=== PATIENT | female | born 1970 | race Caucasian/White ===

== ENCOUNTER 2021-10-15 22:34 | Emergency (ER) | payer OTHER, SELFPAY ==
[2021-10-15 22:45] VITALS: PULSE 100; O2SAT 95
[2021-10-15 22:52] VITALS: BP 137/80; PULSE 106; RESP 18; TEMP 37; O2SAT 95
[2021-10-15 23:00] VITALS: PULSE 87; O2SAT 96
--- NOTE | 2021-10-15 23:05 | ED_ITS ---
HPI - General Adult General Chief complaint: Upper Respiratory Symptoms Stated complaint: Respiratory symptoms/Fevers x 4 days, -covid tests Time Seen by Provider: 10/15/21 22:56 Source: patient Mode of arrival: Ambulatory History of Present Illness HPI narrative: Patient is a 42-year-old female who is here for evaluation of fevers and upper respiratory symptoms to include cough and some wheezing which is improved with her albuterol inhaler. She does have history of asthma. She is also been having chest congestion and sinus congestion and generally not feeling very well. She has taken a COVID test every day since the onset of her symptoms and they all have been negative. She has been trying [id number] cough and cold preparations without much improvement Review of Systems Constitutional Constitutional: Reports as per HPI and Reports system reviewed and no additional complaints, except as documented Cardiovascular Cardiovascular: Reports as per HPI and Reports system reviewed and no additional complaints, except as documented Respiratory Respiratory: Reports as per HPI and Reports system reviewed and no additional complaints, except as documented Integumentary/Breasts Skin/Breast: Reports system reviewed and no additional complaints, except as documented Hematologic/Lymphatic On Anticoagulants: No Allergic/Immunologic Allergic/Immunologic: Reports system reviewed and no additional complaints, except as documented Patient History Medical History Asthma Social History Smoking Status: Never smoker Smoking Status: Never smoker Substance Use Type: does not use Exam Initial Vital Signs Initial Vital Signs: Vital Signs Pulse Rate 100 H 10/15/21 22:45 Pulse Oximetry 95 10/15/21 22:45 HENMT Head: normal to inspection and normocephalic Resp Effort & Inspection: normal respiratory effort Auscultation: clear to auscultation bilaterally Cardio Rate: regular rate Rhythm: regular rhythm Skin General: no rashes or lesions noted Neuro General: patient alert, patient awake and moves all extremities Extrem General: normal to inspection and capillary refill normal Psych Appearance: grossly normal and well kempt Course Orders Ordered: ED Orders 10/15/21 23:05 XR chest 2V Stat Vital Signs Vital signs: Vital Signs - 8 hr 10/15/21 22:52 10/15/21 22:45 10/15/21 23:00 Temperature 98.6 F Pulse Rate 106 H 100 H 87 Respiratory Rate 18 Blood Pressure 137/80 Pulse Oximetry 95 95 96 Oxygen Delivery Method Room Air 10/15/21 23:14 10/15/21 23:14 10/15/21 23:30 Temperature Pulse Rate 94 H Respiratory Rate Blood Pressure 127/66 107/63 Pulse Oximetry 95 Oxygen Delivery Method 10/15/21 23:30 10/16/21 00:00 10/16/21 00:01 Temperature Pulse Rate 82 83 79 Respiratory Rate Blood Pressure Pulse Oximetry 96 96 97 Oxygen Delivery Method 10/16/21 00:04 10/16/21 00:04 Temperature Pulse Rate 90 Respiratory Rate Blood Pressure 149/95 H Pulse Oximetry 97 Oxygen Delivery Method Medical Decision Making Imaging Data Chest x-ray: Radiologist's Impression: [address] [address] XRay Report Signed Patient: Stella Elizabeth MR#: [id number] : 1970 Acct:[id number] Age/Sex: 50 / F Date of Service: 10/15/21 Loc: ED Accession Number: [id number] ?? Procedure: XR chest 2V Ordering Provider: Josias Coronado D.O. PROCEDURE:? XR CHEST 2V ? INDICATIONS:? fever cough L side crackles ? TECHNIQUE:? 2 views of the chest were acquired.? ? COMPARISON:? None. ? FINDINGS:? ? Surgical changes and devices:? None.? ? Lungs and pleura:? Lungs are clear.? No pleural effusions or pneumothorax.? ? Mediastinum:? Mediastinal contours are normal.? Heart size is normal.? ? Bones and chest wall:? No suspicious bony abnormalities.? Soft tissues appear unremarkable.? ? IMPRESSION:? ? 1.? No acute cardiopulmonary disease. ? ? ? Dictated by: Caleb Cedeño M.D. on 10/15/2021 at 23:49 ? ? Approved by: Caleb Cedeño M.D. on 10/15/2021 at 23:50?? [facility] Narrative Medical decision making narrative: Patient has clear lung exam. Afebrile. Chest x-ray is negative. Has had multiple negative COVID test at home. She does have an influenza like illness symptoms. No indication for antibiotics. She can continue to take the albuterol for any wheezing. She can continue to take the cough and cold preparations. She was given return precautions. She expressed understanding and agreement. Discharge Plan Departure Patient Disposition: Home Clinical Impression: Influenza-like illness Instructions: DI for Viral Upper Respiratory Infection -- Adult Activity Restrictions/Additional Instructions: Continue with the Tylenol/ibuprofen for any fevers or body aches. You can try jitk-kav-ohhmitp cough and cold preparations like we discussed. Be sure to stay hydrated. Contact your primary doctor for follow-up. Return to the emergency department for any new or worsening symptoms. Visit Report Forms: Patient Portal/API
--- NOTE | 2021-10-15 23:05 | DI.RAD.S_ITS ---
PROCEDURE: XR CHEST 2V INDICATIONS: fever cough L side crackles TECHNIQUE: 2 views of the chest were acquired. COMPARISON: None. FINDINGS: Surgical changes and devices: None. Lungs and pleura: Lungs are clear. No pleural effusions or pneumothorax. Mediastinum: Mediastinal contours are normal. Heart size is normal. Bones and chest wall: No suspicious bony abnormalities. Soft tissues appear unremarkable. IMPRESSION: 1. No acute cardiopulmonary disease. Dictated by: Caleb Cedeño M.D. on 10/15/2021 at 23:49 Approved by: Caleb Cedeño M.D. on 10/15/2021 at 23:50
[2021-10-15 23:14] VITALS: BP 127/66; PULSE 94; O2SAT 95
[2021-10-15 23:30] VITALS: BP 107/63; PULSE 82; O2SAT 96
[2021-10-16] VITALS: PULSE 83; O2SAT 96
[2021-10-16 00:01] VITALS: PULSE 79; O2SAT 97
[2021-10-16 00:04] VITALS: BP 149/95; PULSE 90; O2SAT 97
== END 2021-10-16 00:33 | disposition home or self-care (01) ==
PROVIDERS: Emergency Provider Emergency Medicine
DX: R05.9 Cough, unspecified (principal); R50.9 Fever, unspecified
CPT/HCPCS: 71046; 99281; 99283

== ENCOUNTER 2022-03-21 10:32 | Emergency (ER) | payer OTHER, SELFPAY ==
[2022-03-21 10:48] VITALS: BP 125/78; PULSE 80; RESP 18; TEMP 36.8; O2SAT 99; BMI 23.1
== END 2022-03-21 12:55 | disposition left against medical advice (07) ==
PROVIDERS: Emergency Provider Emergency Medicine; PCP Naturopath
DX: M54.9 Dorsalgia, unspecified (principal); M25.551 Pain in right hip
CPT/HCPCS: 73502; 99281

== ENCOUNTER → 2022-03-21 16:25 | Outpatient (CLI) | payer OTHER, SELFPAY ==
--- NOTE | 2022-03-21 16:30 | DI.RAD.S_ITS ---
PROCEDURE: XR HIP W PEL IF DONE RT 2V INDICATIONS: Pain in right hip TECHNIQUE: AP pelvis with lateral view(s) of the right hip(s). COMPARISON: None. FINDINGS: Bones: No fractures or dislocations. Pelvic ring appears intact. No suspicious bony lesions. Hip joints are well maintained. Soft tissues: The visualized bowel gas pattern is normal. No suspicious soft tissue calcifications. IMPRESSION: No definite radiographic abnormality. If pain persists with conservative management, consider cross sectional imaging such as CT or MRI for further assessment. Dictated by: Dick Yang [facility] Interpreted: Luis E Azevedo MD on 03/21/2022 at 16:47 Transcribed by: ANIKET on 03/21/2022 at 16:48 Approved by: Luis E Azevedo M.D. on 03/21/2022 at 17:54
== END ==
PROVIDERS: PCP Naturopath; Referring Provider Naturopath; Visit Provider Naturopath
DX: M25.551 Pain in right hip (principal)
CPT/HCPCS: 73502

== ENCOUNTER → 2022-03-29 18:46 | Outpatient (CLI) | payer OTHER, SELFPAY ==
--- NOTE | 2022-03-29 18:49 | DI.MRI.S_ITS ---
PROCEDURE: MR LUMBAR SPINE WO CON INDICATIONS: LOW BACK PAIN TECHNIQUE: Noncontrast sagittal T1 spin echo and T2 fast echo, sagittal STIR, and T2 fast spin echo through the lumbar spine. In cases with scoliosis, additional coronal T2 fast spin echo may be performed. COMPARISON: None. FINDINGS: Image quality: Excellent. Alignment and Curvature: There is normal bony alignment. Bone Marrow: Marrow is of normal overall signal. No acute vertebral body compression fractures. Spinal Cord: Conus medullaris terminates at the T12 level. Visualized cord demonstrates normal signal and size. Paraspinous Soft Tissues: No paravertebral masses. T12-L1: Normal appearance. L1-L2: Normal appearance. L2-L3: Normal appearance. L3-L4: Mild disc desiccation and height loss. Broad-based disc bulge. There is a left paracentral broad-based disc bulge which narrows the left lateral recess and slightly posteriorly displaces the exiting left nerve root. There is moderate facet ligamentum flavum hypertrophy and mild canal stenosis. No neural foraminal stenosis. L4-L5: Moderate disc desiccation and height loss. Prominent posterior focal high-intensity zone. Moderate facet ligamentum flavum hypertrophy. No canal stenosis. No neural foraminal stenosis. L5-S1: Mild disc desiccation and height loss. Broad-based disc bulge. Mild facet ligamentum flavum hypertrophy. No canal stenosis. No foraminal stenosis. There is a prominent focal posterior high-intensity zone. IMPRESSION: 1. Mild to moderate disc desiccation and height loss from L3-S1. 2. 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 3. Left paracentral L3-4 broad-based disc bulge which slightly displaces the exiting left nerve root. However, the nerve root does not abut the disc bulge. 4. Mild canal stenosis at L3-4 secondary to posterior disc bulge. Dictated by: Alexandra Ramos M.D. on 03/30/2022 at 8:31 Approved by: Alexandra Ramos M.D. on 03/30/2022 at 8:50
== END ==
PROVIDERS: PCP Naturopath; Referring Provider Naturopath; Visit Provider Naturopath
DX: M51.36 Other intervertebral disc degeneration, lumbar region (principal); M51.37 Other intervertebral disc degeneration, lumbosacral region; M48.061 Spinal stenosis, lumbar region without neurogenic claudication; M54.50 Low back pain, unspecified
CPT/HCPCS: 72148

== ENCOUNTER → 2022-03-31 08:07 | Outpatient (CLI) | payer OTHER, SELFPAY ==
--- NOTE | 2022-03-31 | DI.MRI.S_ITS ---
PROCEDURE: MR HIP RT W CON INDICATIONS: HIP PAIN TECHNIQUE: After the administration of 10 mL of dilute intra-articular Gadolinium contrast, coronal STIR of the bony pelvis; coronal and oblique axial T1 spin echo with fat saturation, axial T2 fast spin echo with fat saturation, sagittal T1 spin echo with and without fat saturation of the involved hip. COMPARISON: [facility], [place], [place] HIP INJECTION MR/CT RT, 03/31/2022, 8:32. [facility], [place], XR HIP W PEL IF DONE RT 2V, 03/21/2022, 16:31. FINDINGS: Image quality: Excellent. Bones and joints: There is no marrow edema. No fracture or dislocation. No avascular necrosis of the femoral head. The visualized lower lumbar spine appears normally aligned. Mild prominence of superior anterior right femoral head neck junction is seen which can be seen associated with CAM type femoral acetabular impingement. The ligamental, neck, and labral plicae appear normal where visualized. Tendons and ligaments: The gluteus medius and minimus tendinosis at their insertion on greater trochanter is seen, without associated muscle atrophy. The nearby proximal iliotibial band also appears intact. The iliopsoas tendon appears intact, without adjacent bursal fluid collections or evidence for impingement syndrome. The origin of the hamstring tendon is intact at the ischial tuberosity, as well as the associated sacrotuberous ligament. The straight and reflected heads of the rectus femoris muscle origin appear intact, as well as the conjoint tendon. The ligamentum teres appears intact where visualized. Labrum and cartilage: The acetabular labrum appears intact throughout. Cartilage surface of the femoral head appears of normal thickness. No paralabral cysts. The alpha angle of the femur is within normal limits at less than 55 degrees. Soft tissues: Visualized muscles demonstrate normal bulk and internal signal. Quadratus femoris muscle demonstrates no internal edema to suggest ischiofemoral impingement. The proximal sciatic neurovascular bundle appears normal adjacent to the hamstring tendons. No free pelvic fluid. Bladder wall thickness is normal. Genitourinary structures and bowel loops appear normal where visualized. IMPRESSION: 1. No marrow edema. No fracture or dislocation. No evidence of avascular necrosis of femoral head. Mild prominence of superior anterior right femoral head neck junction which can be seen associated with CAM type femoral acetabular impingement. 2. Distal right gluteus medius and minimus tendinosis at their insertion on greater trochanter. No other muscle or tendon signal abnormality is seen. 3. No evidence of focal labral tear. Dictated by: Ike Gomez M.D. on 03/31/2022 at 13:21 Approved by: Ike Gomez M.D. on 03/31/2022 at 13:25
--- NOTE | 2022-03-31 | DI.RAD.S_ITS ---
PROCEDURE: [place] HIP INJECTION MR/CT RT INDICATIONS: HIP PAIN TECHNIQUE: The indications, alternatives, benefits, risks, and complications of the procedure were explained to the patient. Written informed consent was obtained and placed in the chart. The hip was examined fluoroscopically with the legs fixed in slight internal rotation, and a site for needle placement chosen for entry into the hip joint from an anterior approach. Care was taken to locate the common femoral artery and vein beforehand. The skin was prepped and draped in a sterile fashion, and 1% Lidocaine infiltrated from skin down to joint capsule. A spinal needle was inserted into the joint, and a small amount of iodinated contrast media injected to confirm intra-articular placement of the needle tip. This was followed by approximately 10 mL dilute solution of a gadolinium containing MR contrast agent. The needle was removed and a dressing was applied. The patient was given postprocedural instructions and sent to the MR suite for imaging. COMPARISON: None. FINDINGS: A single fluoroscopic spot image demonstrates intra-articular location of injected iodinated contrast. IMPRESSION: Successful fluoroscopically guided administration of dilute Gadolinium solution into the hip joint for MR arthrogram. Dictated by: Margarito Zapata M.D. on 03/31/2022 at 9:33 Approved by: Margarito Zapata M.D. on 03/31/2022 at 9:35
== END ==
PROVIDERS: PCP Naturopath; Referring Provider Naturopath; Visit Provider Naturopath
DX: M25.551 Pain in right hip (principal)
CPT/HCPCS: 27093; 73722; 77002

== ENCOUNTER 2022-05-16 09:55 | Emergency (ER) | payer OTHER, SELFPAY ==
--- NOTE | 2022-05-16 10:03 | ED.BACK ---
HPI - Back Pain/Injury General Chief Complaint: Back Pain/Injury Stated Complaint: bulging disc, pain management Time Seen by Provider: 05/16/22 10:01 History of Present Illness HPI Narrative: 51-year-old female never smoker with known lumbar disc problem presents with her in the chief complaint of significantly worsening symptoms over the past few days. She is had no traumatic injury but likely exacerbated it when sitting in the bleachers recently. She has severe midline back pain with radiation into her right hip and leg. The pain is sharp and stabbing and significantly worse with motion, it does improve with rest. She denies any fever or chills. She does not take any blood thinners. She is had no loss of control of bowel or bladder. She does have some tingling along the lateral edge of her leg extending down to her knee. She denies any footdrop. She denies any obvious leg weakness. She does have an evaluation with Dr. Duke on . She has been taking regular anti-inflammatories, the occasional cyclobenzaprine and took a half of Vicodin at 1 point. In the past she had taken steroids and gabapentin but states they did not work so she is no longer taking them. She denies runny nose, sore throat or cough. She is had no chest pain or shortness of breath. She denies nausea, vomiting or diarrhea. She is had no vaginal bleeding or discharge and denies dysuria, frequency or urgency Related Data Home Medications Medication Instructions Recorded Confirmed cyclobenzaprine 10 mg tablet 10 mg PO TID PRN Muscle Spasm 05/16/22 05/16/22 fluticasone 500 mcg-salmeterol 50 1 ea inhalation BID 05/16/22 05/16/22 mcg/dose blistr powdr for inhalation (Advair Diskus) gabapentin 300 mg tablet 300 mg PO DAILY 05/16/22 05/16/22 ibuprofen 600 mg tablet 600 mg PO Q6H PRN Pain (Scale 05/16/22 05/16/22 Score 7-10) thyroid (pork) 120 mg tablet (BARBERING INSTRUCTOR 120 mg PO DAILY 05/16/22 05/16/22 Thyroid) Previous Rx's Medication Instructions Recorded cyclobenzaprine 10 mg tablet 10 mg PO TID PRN muscle spasm #20 05/16/22 tabs hydrocodone 5 mg-acetaminophen 325 1 tab PO Q4-6H PRN pain #20 tabs 05/16/22 mg tablet ketorolac 10 mg tablet 10 mg PO Q6H PRN pain #20 tabs 05/16/22 methylprednisolone 4 mg tablets in See Rx Instructions PO .COMPLEX 05/16/22 a dose pack (Medrol (Otto)) #21 ea ondansetron 4 mg disintegrating 4 mg PO TID-QID PRN nausea and 05/16/22 tablet vomiting #10 tabs Allergies Allergy/AdvReac Type Severity Reaction Status Date / Time No Known Drug Allergies Allergy Verified 05/16/22 10:15 Review of Systems Review of Systems Narrative: GENERAL: See HPI HEENT: Denies sinus pain, ear pain, sore throat, difficulty swallowing, dizziness. RESPIRATORY: Denies dyspnea, cough, wheezing, hemoptysis, sputum. CARDIOVASCULAR: Denies chest pain, palpitations, orthopnea, edema, GASTROINTESTINAL: Denies nausea, vomiting, abdominal pain, diarrhea, constipation, melena. : Denies dysuria, frequency, incontinence, hematuria, urinary retention. MUSCULOSKELETAL: See HPI SKIN: Denies rash, skin lesions, or other NEUROLOGIC: See HPI PSYCHIATRIC: No concerning psychosocial issues. 12 point review of systems is negative except for those stated above Patient History Medical History Asthma Social History Smoking Status: Never smoker Smoking Status: Never smoker Substance Use Type: does not use Exam Narrative Exam Narrative: GENERAL: [51] year old patient appears stated age. Well-developed patient, in mild distress. Tearful, clearly in pain, walks in under her own power, able to stand HEAD: Atraumatic. Normocephalic. EYES: Pupils equal round and reactive. Extraocular motions intact. No scleral icterus. No injection or drainage. ENT: Nose without bleeding, purulent drainage. Throat without erythema, tonsillar hypertrophy or exudate. Airway patent. NECK: Trachea midline. Non tender CARDIOVASCULAR: Regular rate and rhythm without murmurs, gallops, or rubs. RESPIRATORY: Clear to auscultation. Breath sounds equal bilaterally. No wheezes, rales, or rhonchi. GASTROINTESTINAL: Abdomen soft, non-tender, nondistended. EXTREMITIES: No edema or joint tenderness. BACK: steak tenderizer machine but free of any obvious external abnormalities. Patient exam notes decreased range of motion and muscle spasm, but no CVA tenderness, or vertebral point tenderness. There are no symptoms of cauda equina such as saddle anesthesia, and decreased reflexes, she does have some decreased sensation laterally. There is no measurable lower extremity weakness NEURO: AOx3. SKIN: No rash or erythema of visible areas Initial Vital Signs Initial Vital Signs: Vital Signs Temperature 98.1 F 05/16/22 10:05 Pulse Rate 78 05/16/22 10:05 Respiratory Rate 20 05/16/22 10:05 Blood Pressure 143/74 H 05/16/22 10:05 Pulse Oximetry 100 05/16/22 10:05 Oxygen Delivery Method 05/16/22 10:05 Course Orders Ordered: Discontinued Medications Hydromorphone HCl (Hydromorphone 0.5 Mg Inj) 0.5 mg IV NOW ONE Stop: 05/16/22 10:18 Last Admin: 05/16/22 10:35 Dose: 0.5 mg Documented By: GROVER Ketorolac Tromethamine (Ketorolac 30 Mg/Ml Vial) 15 mg IV NOW ONE Stop: 05/16/22 10:18 Last Admin: 05/16/22 10:35 Dose: 15 mg Documented By: CTS Reevaluation(s) Reevaluation #1: Significant improvement after above-stated therapies Consultations Consultation #1: Discussed with Dr. Duke, will see her on in office, evaluate response to therapies Vital Signs Vital signs: Vital Signs - 8 hr 05/16/22 10:05 05/16/22 11:25 05/16/22 15:13 Temperature 98.1 F Pulse Rate 78 68 62 Respiratory Rate 20 18 18 Blood Pressure 143/74 H 112/58 L 119/62 Pulse Oximetry 100 99 99 Oxygen Delivery Method Room Air Room Air Room Air MDM - Back Pain/Injury Lab Data 05/16/22 10:32 05/16/22 10:32 Labs: Lab Results 05/16/22 05/16/22 Range/Units 10:32 10:32 WBC 5.4 (4.5-11.0) X10^3/uL RBC 4.72 (4.0-5.2) X10^6/uL Hgb 14.4 (12.0-16.0) g/dL Hct 41.0 (36-46) % MCV 86.8 (80-100) fL MCH 30.6 (26-34) PG MCHC 35.2 (30-36) % RDW 13.1 (11.6-14.8) % Plt Count 254 (150-400) X10^3/uL Neut % (Auto) 54.0 (50-75) % Lymph % (Auto) 33.3 (25-40) % [place] % (Auto) 6.1 (3-14) % Eos % (Auto) 5.2 H (2-4) % Baso % (Auto) 1.4 (0-2) % Neut # (Auto) 2900 (1033-6068) /uL Lymph # (Auto) 1800 (1780-6839) /uL [place] # (Auto) 300 (0-900) /uL Eos # (Auto) 300 (0-450) /uL Baso # (Auto) 100 (0-100) /uL ESR 5 (0-20) MM/HR Sodium 132 L (137-145) mmol/L Potassium 3.6 (3.4-5.1) mmol/L Chloride 97 L (98-107) mmol/L Carbon Dioxide 27 (22-32) mmol/L BUN 14 (7-17) mg/dL Creatinine 0.54 (0.52-1.04) mg/dL Estimated GFR > 60 (>60) mL/min BUN/Creatinine Ratio 25.9 H (6-22) Glucose 91 (70-100) mg/dL Calcium 9.4 (8.4-10.2) mg/dL C-Reactive Protein < 0.5 (<1.0) mg/dL [facility] Narrative Medical decision making narrative: CC: 51-year-old female with severe low back pain and radiation to her leg with numbness and tingling, in the absence of trauma, fever or classic signs of cauda equina Complicating co-morbidities: None obvious Data collected from: Patient and Medical records reviewed: Including prior MRI and arthrogram Differential considered, but not limited to: Lumbar radiculopathy, epidural abscess, cauda equina, epidural hematoma versus other Exam documented above, pertinent findings include: Obviously in significant pain but no evidence of cauda equina such as depressed reflexes, weakness or saddle anesthesia Lab Test results independently reviewed as above. Pertinent findings: No significant findings which would require a specific or immediate intervention Imaging studies independently reviewed: Disc desiccation and height loss with annular fissures, L3-L4 disc protrusion, disc bulge at L4-L5 with broad-based posterior protrusion with bilaterally descending L5 nerve roots. No mass effect. Mild neural foraminal narrowing at L3-L4 and L4-L5. No marrow signal abnormality. No evidence of abscess or hematoma Consultations: Dr. Duke (See above) Treatments: Dilaudid, Ketorolac, patient's own gabapentin Re-evaluations: Significant improvement, some pain still present but notably improved Discussion: Patient with worsening low back pain with radicular symptoms in the absence of fever, trauma or blood thinner use. There is no evidence of spinal cord compression or cauda equina. Patient had improvement with above-stated therapies. Extensive discussion with patient and about the importance of adherence to medications at least until follow-up with ortho on . Return precautions discussed Disposition: see below, along with detailed discharge instructions that have been reviewed with patient as well as indications for ED re-evaluation and additional outpatient follow up Discharge Plan Departure Patient Disposition: Home Clinical Impression: Acute back pain with radiculopathy Instructions: DI for Lumbar Radiculopathy Activity Restrictions/Additional Instructions: *You have been diagnosed with [acute lumbar radiculopathy] *What to do: *Please continue to take your regular medications as directed. [x ] New medication prescriptions sent to your pharmacy: [[facility] ] [ ] New medication written as a paper prescription [ ] No new medications given *Please follow up with Dr. Duke on as planned. I will electronically transmitted a copy of today's note, however it may be schmidt to call the office ahead of time and let them know that you were seen in the emergency department so he may review the records including MRI ahead of time *Return to Emergency Department if you should have any new, worsening or concerning symptoms, such as [fever greater than 101 F, shaking chills, worsening pain, persistent vomiting or other bothersome symptoms] You have been prescribed a short course of narcotic medications. These are potentially dangerous and addictive medications that should be used carefully. While on these medications you cannot drive or operate heavy machinery. Additionally, you cannot sign legal documents or perform any duties such as this. Many people get constipated on narcotic medications so it would be advisable to discuss stool softeners with the pharmacist when you hop picker your prescription. Please understand that we cannot provide further refills of narcotics or controlled substances through the ED and your pain management will need to be through your Primary Care Provider Prescriptions: New cyclobenzaprine 10 mg tablet 10 mg PO TID PRN (Reason: muscle spasm) Qty: 20 0RF hydrocodone-acetaminophen 5-325 mg tablet 1 tab PO Q4-6H PRN (Reason: pain) Qty: 20 0RF ketorolac 10 mg tablet 10 mg PO Q6H PRN (Reason: pain) Qty: 20 0RF methylprednisolone [Medrol (Otto)] 4 mg tablets,dose pack See Rx Instructions .ROUTE .COMPLEX Qty: 21 0RF Rx Instructions: orally per package directions ondansetron 4 mg tablet,disintegrating 4 mg PO TID-QID PRN (Reason: nausea and vomiting) Qty: 10 0RF No Action cyclobenzaprine 10 mg tablet 10 mg PO TID PRN (Reason: Muscle Spasm) Label Comments: TAKE ONE TABLET BY MOUTH THREE TIMES DAILY NEEDED fluticasone propion-salmeterol [Advair Diskus] 500-50 mcg/dose blister with device 1 ea INHALATION BID Label Comments: INHALE ONE PUFF INTO THE LUNGS TWO TIMES DAILY. thyroid (pork) [BARBERING INSTRUCTOR Thyroid] 120 mg tablet 120 mg PO DAILY ibuprofen 600 mg Tablet 600 mg PO Q6H PRN (Reason: Pain (Scale Score 7-10)) Label Comments: pt taking q 5 hours, instructed that was over reccomended dose. gabapentin 300 mg Tablet 300 mg PO DAILY Referrals: Beena Yusuf ND [Primary Care Provider] - Iván Duke MD [Physician] - Stand Alone Forms: Patient Portal/API
[2022-05-16 10:05] VITALS: BP 143/74; PULSE 78; RESP 20; TEMP 36.7; O2SAT 100; BMI 24.7
[2022-05-16] MEDS: KETOROLAC 30 MG/ML VIAL 15 MG IV (10:35)
[2022-05-16] MEDS: HYDROMORPHONE 0.5 MG INJ IV (10:35)
[2022-05-16 10:43] LABS: Add Manual Diff / Slide Review NO; Basophils Absolute Auto 100 /uL (0-100); Basophils Percent Auto 1.4 % (0-2); Eosinophils Absolute Auto 300 /uL (0-450); Eosinophils Percent Auto 5.2 % (2-4); Hemoglobin 14.4 g/dL (12.0-16.0); Lymphocytes Absolute Auto 1800 /uL (1100-4500); Lymphocytes Percent Auto 33.3 % (25-40); Mean Corpuscular HGB Conc 35.2 % (30-36); Mean Corpuscular Hemoglobin 30.6 PG (26-34); Mean Corpuscular Volume 86.8 fL (80-100); Monocytes Absolute Auto 300 /uL (0-900); Monocytes Percent Auto 6.1 % (3-14); Neutrophils Absolute Auto 2900 /uL (1500-7000); Platelet Count 254 X10^3/uL (150-400); Red Blood Cell Count 4.72 X10^6/uL (4.0-5.2); Red Cell Distribution Width 13.1 % (11.6-14.8); White Blood Cell Count 5.4 X10^3/uL (4.5-11.0)
[2022-05-16 10:56] LABS: BUN Creatinine Ratio 25.9 (6-22); Blood Urea Nitrogen 14 mg/dL (7-17); C-Reactive Protein Quant < 0.5 mg/dL (<1.0); Calcium 9.4 mg/dL (8.4-10.2); Carbon Dioxide 27 mmol/L (22-32); Chloride 97 mmol/L (98-107); Estimated Glomerular Filt Rate > 60 mL/min (>60); Glucose 91 mg/dL (70-100); HEMOLYSIS < 15 (0-50); Potassium 3.6 mmol/L (3.4-5.1); Sodium 132 mmol/L (137-145)
[2022-05-16 11:10] LABS: Erythrocyte Sedimentation Rate 5 MM/HR (0-20)
[2022-05-16 11:25] VITALS: BP 112/58; PULSE 68; RESP 18; O2SAT 99
--- NOTE | 2022-05-16 12:36 | DI.MRI.S_ITS ---
PROCEDURE: MR LUMBAR SPINE WO CON INDICATIONS: severe Right sided radicular pain, weakness TECHNIQUE: Noncontrast sagittal T1 spin echo and T2 fast echo, sagittal STIR, and T2 fast spin echo through the lumbar spine. In cases with scoliosis, additional coronal T2 fast spin echo may be performed. COMPARISON: None. FINDINGS: From L3-L4 through L5-S1 there is disc desiccation and disc height loss with annular fissures at each level. At L3-L4 there is a disc protrusion in the left subarticular zone which mildly displaces the descending left L4 nerve roots. Shallow disc bulge at L4-L5 with broad-based posterior disc protrusion mildly displaces the bilateral descending L5 nerve roots. No mass effect on the traversing nerve roots at the L5-S1 level. Foraminal components of the disc bulge is and facet hypertrophy combine to produce mild neural foraminal narrowing at L3-L4 and L4-L5. Normal lumbar vertebral body height and alignment. No suspicious focal marrow signal abnormality or bone marrow edema. Normal position and appearance of the conus. Regional soft tissues normal. IMPRESSION: Moderate left subarticular zone narrowing at L3-L4. Correlate for any corresponding left L4 radicular symptoms. Moderate subarticular zone narrowing at L4-L5 bilaterally. Correlate for any corresponding L5 radicular symptoms. Dictated by: Brendon Christine M.D. on 05/16/2022 at 13:18 Approved by: Brendon Christine M.D. on 05/16/2022 at 13:19
[2022-05-16 15:13] VITALS: BP 119/62; PULSE 62; RESP 18; O2SAT 99
== END 2022-05-16 15:15 | disposition home or self-care (01) ==
PROVIDERS: Emergency Provider Emergency Medicine; PCP Naturopath
DX: M54.16 Radiculopathy, lumbar region (principal)
CPT/HCPCS: 36415; 72148; 80048; 85025; 85651; 86140; 96374; 96375; 99284; J1170; J1885

== ENCOUNTER → 2022-05-28 10:10 | Outpatient (CLI) | payer OTHER, SELFPAY ==
[2022-05-28 11:08] LABS: Add Manual Diff / Slide Review NO; Basophils Absolute Auto 100 /uL (0-100); Blood Urea Nitrogen 14 mg/dL (7-17); Calcium 9.3 mg/dL (8.4-10.2); Carbon Dioxide 24 mmol/L (22-32); Chloride 97 mmol/L (98-107); Eosinophils Absolute Auto 300 /uL (0-450); Eosinophils Percent Auto 3.7 % (2-4); Estimated Glomerular Filt Rate > 60 mL/min (>60); Glucose 90 mg/dL (70-100); HEMOLYSIS < 15 (0-50); Hematocrit 40.7 % (36-46); Hemoglobin 14.2 g/dL (12.0-16.0); Lymphocytes Absolute Auto 2500 /uL (1100-4500); Lymphocytes Percent Auto 31.9 % (25-40); Mean Corpuscular Hemoglobin 30.4 PG (26-34); Mean Corpuscular Volume 87.1 fL (80-100); Monocytes Absolute Auto 600 /uL (0-900); Monocytes Percent Auto 7.4 % (3-14); Neutrophils Absolute Auto 4400 /uL (1500-7000); Platelet Count 276 X10^3/uL (150-400); Potassium 3.5 mmol/L (3.4-5.1); Red Blood Cell Count 4.67 X10^6/uL (4.0-5.2); Red Cell Distribution Width 12.9 % (11.6-14.8); Sodium 133 mmol/L (137-145); White Blood Cell Count 7.9 X10^3/uL (4.5-11.0)
== END ==
PROVIDERS: PCP Naturopath; Referring Provider Orthopaedic Surgery Orthopaedic Surgery of the Spine; Visit Provider Orthopaedic Surgery Orthopaedic Surgery of the Spine
DX: Z01.818 Encounter for other preprocedural examination (principal); Z01.812 Encounter for preprocedural laboratory examination
CPT/HCPCS: 36415; 80048; 85025; 93005

== ENCOUNTER 2022-06-06 08:00 | Inpatient (IN) | payer OTHER, SELFPAY ==
[2022-06-01 10:42] VITALS: BMI 23.1
[2022-06-06] VITALS (23 sets, daily range): BP systolic 108–135; BP diastolic 60–93; PULSE 68–98; RESP 10–28; TEMP 36.6–37.1; O2SAT 93–99; BMI 23.1
[2022-06-06] MEDS: LACTATED RINGERS 1,000 ML 42 ML IV ×3 (08:35→11:31)
--- NOTE | 2022-06-06 08:50 | PM.PREOP ---
Pre-operative Note COVID-19 COVID-19 status: Negative Result date/Date tested (Pos, Neg/Pending): 06/05/22 Criteria for continued procedure: Expected advancement of disease process, Possibility delay results in more complex future surgery or treatment, Increased loss of function, Continuing or worsening of significant or severe pain, Deterioration of the patient's condition or overall health and Delay expected to result in less-positive ultimate med/surg outcome Interval Note History & Physical reviewed/Exam performed by Physician: Yes Changes to H&P: No
[2022-06-06] MEDS: CEFAZOLIN 2 GM/100 ML PREMIX 100 ML IV ×2 (09:10→17:08)
--- NOTE | 2022-06-06 09:39 | SUR.OPER ---
Prone on spine table, head in foam head support, padded chest and pelvic supports, gel pad at knees, lower legs supported by pillows; nipples, genitalia and toes free of pressure, arms secured on foam padded arm boards at <90 degrees abduction. Tape over blanket at thigh secured to table.
[2022-06-06] MEDS: BUPIVACAINE 0.5% W/ EPI (PF) 30 ML VIAL INJ (10:14)
[2022-06-06] MEDS: BUPIVACAINE LIPOSOME 266 MG/20 ML VIAL INJ (10:14)
--- NOTE | 2022-06-06 11:31 | PM.OP.1 ---
Operative Date/Time/Diagnoses Date of procedure: 06/06/22 Time of procedure: 10:00 Pre-op diagnosis: 1. 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 L3-4 radiculopathy 3. L3-4 spinal stenosis Post-op diagnosis: same Procedure & Clinicians Procedure: 1. L3-4 Postero-lateral and posterior interbody fusion 2. L3-4 interbody cage placement. 3. L3-4 decompressive laminectomy with bilateral facetecomies 4. L3-4 Posterior non-segmental instrumentation 5. Pollock of bone marrow from iliac crest 6. Utilization of microsurgical technique and operating microscope Same procedure as scheduled: Yes Indications: Patient has been having chronic back pain and constant lumbar radiculopathy to her right leg for 3 month. Patient failed multiple conservative management with worsening pain weakness and numbness in her lower extremity. Patient has been having difficulty performing activity of daily living. After discussing risks benefits of treatment options, patient elected proceed with surgery. Surgeon: Iván Duke Surveillance Dual Rate Officer: Josy Quispe Click Yes if Unassisted: No Anesthesia Type: General Operative Notes Closure Type: primary Specimen(s): none sent Prosthetic devices, grafts, tissues, transplants, or devices: Globus revolve screws, Rise cage Estimated Blood Loss (mL): 50 Blood products transfused: none Procedure in detail: Patient was seen in the preoperative area. Risks and benefits of the surgery was discussed with the patient. Informed consent was obtained from the patient and placed in the chart. Surgical site was marked. Patient was taken to the operative room. General anesthesia was administered. Prophylactic antibiotic was given to the patient less than 30 min before the incision was made. Patient was placed into a prone position on the Jcarlos table. Patient's back was then prepped and draped in the sterile fashion. Time-out was performed at this time. Using AP and lateral C-arm imaging the interval between L3-4 was identified and marked on patient's back. A 2 inch incision 2 in from midline was made on the right side first. The fascia was incised in line with skin incision. Globus MARS retractors was placed inside the incision and docked onto the L3 lamina. Using microsurgical technique and operating microscope, a L3 laminectomy and L3-4 facetectomy was performed using a Kerrison rongeur. Patient was found to have a large synovial cyst in the epidural space at L3-4 level. The cyst measures roughly 1 cm in diameter. Micro curette and Kerrison rongeur was carefully used to dissect the cyst off of the epidural space and a nerve root. The cyst was causing significant impingement on the thecal sac as well as the L4 nerve root. The cyst was removed in its entirety with a pituitary. The cyst was found to be filled with viscous thick fluid with a thin membrane. After the cyst was removed, the area mediolateral superior inferior to the area of the cyst was explored. No other impinging structure was identified. The laminectomy and facetectomy rendered the L3-4 level grossly unstable and requires a fusion procedure at the same time. The disc space at L3-4 was identified. And a total diskectomy was performed at L3-4 level. The endplates were decorticated using a rasp and shaver. The total diskectomy and decortication was performed at L3-4 level in order to to accomplish a L3-4 fusion. The local bone from the laminectomy and facetectomy was saved for local bone grafting. After the total diskectomy and decortication was completed, Globus Trifecta bone graft material was combined with local bone that was harvested earlier. At this time, a separate skin is incision was made over the iliac crest. A Jamshidi needle was inserted into the iliac crest through a separate skin incision. 5 cc of bone marrow aspiration was obtained through the separate skin incision using a Jamshidi needle from the iliac crest. The bone marrow aspiration was combined with local bone and theTrifecta bone grafting material. The bone grafting material was placed into the L3-4 interbody space along with a expandable cage. The cage was expanded to its maximum height using the torque limiting screwdriver. At this time a mirror image incision was made on the left side. The fascia was incised in line with the skin incision. Globus MARS retractor was inserted and docked onto the L3-4 posterolateral gutter. Using the power drill, posterior-lateral decortication was performed at L3-4 level until bleeding cortical bone was identified. The remaining bone grafting material was placed into the L3-4 posterior lateral gutter he order to accomplish posterolateral fusion at the L3-4 level. Using the double C-arm technique, pedicle screws were placed into the L3-4 pedicles bilaterally. This was done by placing the Jamshidi needle into the pedicles, then placing the guidewires over the Jamshidi needle, and finally placing the cannulated screws over the guidewires bilaterally. After the pedicle screws were placed, 2 titanium rods was locked into the heads of the pedicle screws using locking caps and torque limiting screwdriver. After all the hardware was placed, and confirmed with AP and lateral C-arm imaging, the wound was then irrigated with sterile normal saline and packed with Ray-Dora gauze for 3 min to accomplish hemostasis. After the gauze was removed the deep fascia was closed with #1 Vicryl suture. The subcutaneous layer was closed with 2-0 Vicryl. The skin was closed with skin drew. Patient tolerated the procedure well. There were no complications. Complications: none Post-operative Condition: stable Disposition: PACU Plan for aftercare: Admit to inpatient hospital
[2022-06-06] MEDS: fentaNYL 100 MCG/2 ML INJ IV ×3 (11:56→12:05)
[2022-06-06] MEDS: hydrOXYzine 50 MG/ML INJ 25 MG IM (11:56)
--- NOTE | 2022-06-06 11:57 | DI.RAD.S_ITS ---
PROCEDURE: XR LUMBAR SPINE 2-3V INDICATIONS: L3-4 TLIF TECHNIQUE: 2 operative views of the lumbar spine were acquired. COMPARISON: None. FINDINGS: Operative imaging demonstrates posterior lateral fam and pedicle screw fixation and interbody spacer placement at L3-L4. IMPRESSION: Operative imaging utilized for lumbar fusion surgery at L3-L4 with no radiographic evidence of complications. Dictated by: Stanley Moncada M.D. on 06/06/2022 at 13:30 Approved by: Stanley Moncada M.D. on 06/06/2022 at 13:31
[2022-06-06] MEDS: HYDROMORPHONE 0.5 MG INJ IV ×3 (12:30→22:33)
[2022-06-06] MEDS: OXYCODONE/ACETAMINOPHEN 5/325 TABLET 1 TAB PO ×2 (13:05→15:00)
[2022-06-06] MEDS: HYDROMORPHONE 2 MG INJ (14:40)
--- NOTE | 2022-06-06 15:05 | SUR.PHASEI ---
Log rolled to use BSC, tolerated, assist x 2. voided large amount, log roll back to bed, tolerated well.
--- NOTE | 2022-06-06 15:16 | SUR.PHASEI ---
Transferred to 219 with all belongings. Report called.
[2022-06-06] MEDS: IBUPROFEN 600 MG TABLET PO ×2 (17:05→22:34)
[2022-06-06] MEDS: hydrOXYzine pamoate 25 MG CAPSULE PO (17:05)
[2022-06-06] MEDS: SODIUM CHLORIDE 0.9% 1,000 ML 100 ML IV (17:21)
[2022-06-06] MEDS: OXYCODONE IR 5 MG TABLET PO ×2 (18:32→23:21)
[2022-06-06] MEDS: ACETAMINOPHEN 325 MG TABLET 650 MG PO (18:56)
--- NOTE | 2022-06-06 20:07 | PC.NURSE ---
Addendum entered by Alena Leonardo R.N. 06/06/22 20:09: dressing c/d/i Original Note: Pt arrived from PACU at 1500 this afternoon. A&OX3, VSS, on RA. She is able to turn in bed, tolerating po intake, denies n/v. Reports pain tolerable with PRN and scheduled pain medications this evening. Per Post OP RN patient had gotten up to void 3 L in PACU. Continuous monitoring. NS @100ml/hr.
[2022-06-06] MEDS: SENNOSIDES 8.6 MG TABLET 17.2 MG PO (22:22)
[2022-06-06] MEDS: THYROID, PORK 30 MG TABLET 120 MG PO (22:22)
[2022-06-06] MEDS: DOCUSATE 100 MG CAPSULE PO (22:22)
[2022-06-06] MEDS: CYCLOBENZAPRINE 10 MG TABLET PO (22:35)
[2022-06-07] MEDS: CEFAZOLIN 2 GM/100 ML PREMIX 100 ML IV (00:26)
[2022-06-07] MEDS: IBUPROFEN 600 MG TABLET PO ×2 (04:05→12:55)
[2022-06-07] MEDS: hydrOXYzine pamoate 25 MG CAPSULE PO ×2 (04:06→12:55)
[2022-06-07] MEDS: OXYCODONE IR 5 MG TABLET PO ×2 (04:06→08:51)
[2022-06-07 06:50] VITALS: BP 115/62; PULSE 64; RESP 18; TEMP 37.2; O2SAT 97
--- NOTE | 2022-06-07 07:35 | PM.PNPO.1 ---
Subjective Subjective Date Patient Seen: 06/07/22 Time Patient Seen: 07:35 Interval history: Pain has been moderate. Denies fever chills. No nausea vomiting. Patient has her home to assist her. Exam Vital Signs (past 8 hours): - 06/07/22 06:50 Temperature 98.9 F Pulse Rate 64 Respiratory Rate 18 Blood Pressure 115/62 Pulse Oximetry 97 Oxygen Flow Rate 0 Oxygen Delivery Method Room Air Oxygen Flow Rate 0 Narrative Exam Narrative: 51-year-old female resting comfortably in bed in no apparent distress. Motor functions intact bilateral lower extremities. Sensation grossly intact to light touch bilateral lower extremities. Dressing is clean, dry and intact. Const General: cooperative and comfortable Nutritional Appearance: average body habitus Orientation: alert Resp Effort & Inspection: normal respiratory effort and able to speak in complete sentences [facility] Medical History Asthma COVID-19 virus infection (11/2020) Hypothyroidism Sciatica Spinal stenosis Synovial cyst of lumbar spine Uterine cancer (07/2016) Surgical History History of partial hysterectomy (07/2016) Hx of abdominal surgery (09/2017) Hx of appendectomy (09/2017) Hx of dilation and curettage (05/2016) Hx of umbilical hernia repair Social History household members: spouse Smoking Status: Never smoker alcohol intake: current Assessment & Plan Post-op Postoperative Procedures: Procedures Operation Date: 06/06/22 09:15 Actual Procedure Side Surgeon p L3-4 TLIF Iván Duke MD Postoperative day: 1 Postoperative status: doing well Postoperative plan: routine post-op care Postoperative plan narrative: Multimodal pain management Mobilize with physical therapy, limit bending, lifting, twisting Disposition likely home today or tomorrow Quality VTE Deep Vein Thrombosis/Pulmonary Embolism Present on Admission: No
--- NOTE | 2022-06-07 08:40 | CM.DANOTE ---
Initial DCP Assessment Note Pt is a 51 yo female, resident of [place], now POD#[address] Duke PCP: Beena Yusuf Payer: Juju GONZALEZ Reviewed chart, initial assessment completed with the information available Patient awaiting therapy eval this morning, plans to return home w/spouse to assist and close outpatient follow up per Ortho recommendation and orders Patient likely to be dicharged today or tomorrow pending progress w/therapy team and pain management post operatively. No barriers identified at this time to patient's safe discharge home w/family to assist; close outpatient f/u recommended. Following closely for any DC concerns or needs that may arise- therapies evaluating today KATRIN Masterson Discharge Planning/Care Management CM Discharge Assessment Start: 06/07/22 08:38 Freq: Status: Active Protocol: Document 06/07/22 08:38 JOSE (Rec: 06/07/22 08:39 JOSE [id number]) Discharge Planning Assessment Assigned Stogie Packer KATRIN Trejo DPOA/Assigned Designee Name Vahe () Contact Information [phone] Advance Directives? Yes Advance Directives on File No History Provided By Patient,Medical Record Prior Living Arrangements House Household Members spouse Type of transporation used prior to Drives own vehicle admit Comment Self Employed per chart review Independent with ADL's Yes Is patient alert and oriented? Yes Patient/Family Preference OP PT Therapy Barriers to Discharge No
[2022-06-07] MEDS: THYROID, PORK 30 MG TABLET 120 MG PO (08:50)
[2022-06-07] MEDS: DOCUSATE 100 MG CAPSULE PO (08:50)
[2022-06-07] MEDS: CYCLOBENZAPRINE 10 MG TABLET PO (08:51)
[2022-06-07] MEDS: ACETAMINOPHEN 325 MG TABLET 650 MG PO (08:51)
[2022-06-07 09:19] VITALS: BP 122/71; PULSE 78; RESP 16; TEMP 36.6; O2SAT 97
[2022-06-07 10:13] VITALS: PULSE 79; RESP 16; O2SAT 98
[2022-06-07] MEDS: ALBUTEROL 2.5 MG/3 ML NEB (ADULT) INH (10:18)
[2022-06-07] MEDS: BUDESONIDE 0.5 MG/2 ML NEB INH (10:18)
--- NOTE | 2022-06-07 10:19 | PT.IIE ---
Current Diagnoses Spinal stenosis, lumbar region without neurogenic claudication (06/06/22) Other bursal cyst, other site (06/06/22) Surgery Performed Operation Date: 06/06/22 09:15 Actual Procedures p L3-4 TLIF - Iván Duke MD Surgical History (Last Reviewed 06/07/22 @ 07:36 by Zack Hernandez PA-C) History of partial hysterectomy (07/2016) Hx of abdominal surgery (09/2017) Hx of appendectomy (09/2017) Hx of dilation and curettage (05/2016) Hx of umbilical hernia repair Medical History (Last Reviewed 06/07/22 @ 07:36 by Zack Hernandez PA-C) Asthma COVID-19 virus infection (11/2020) Hypothyroidism Sciatica Spinal stenosis Synovial cyst of lumbar spine Uterine cancer (07/2016) Physical Therapy Inpatient Evaluation/Re-Eval M1 PT/OT-IP Prior Functional Status Start: 06/07/22 09:04 Freq: NEEDED Status: Active Protocol: Document 06/07/22 10:00 [facility] (Rec: 06/07/22 10:19 [facility] [id number]) Medical Review Prior Functional Status Medical History Reviewed Yes Diet/Fluid Consistency Regular Mobility and Gait pt described a great deal of pain since March 2022 , Right LE radicular symptms and had been limited with her mobility and she tried to walk in her house Prior Functional Level (Other details) 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 M2 PT-IP Current Condition Start: 06/07/22 09:04 Freq: NEEDED Status: Active Protocol: Document 06/07/22 10:00 [facility] (Rec: 06/07/22 10:19 [facility] [id number]) Physical Therapy Current Condition Current Condition Evaluation Date 06/07/22 Treatment Diagnosis L3-4 postero-lateral interbody fusion M3 PT-IP Subjective Start: 06/07/22 09:04 Freq: NEEDED Status: Active Protocol: Document 06/07/22 10:00 [facility] (Rec: 06/07/22 10:19 [facility] [id number]) Subjective Physical Therapy Visit Type Type Initial Evaluation Visit Start Time 09:20 Visit Stop Time 09:55 Total Visit Minutes 35 Physical Therapy Visit Comments Patient Comments pt is laying in bed, she has had pain meds, current pain a 6/ Patient Goals pt's goals are to reduce pain and improve function so 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 can 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 with 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 Therapy Pain Assessment Pain When Pain Assessed At Rest Pain Present Pain Present Pain Reported Location Lower Back Intensity 6 Scale Used Numeric (0 - 10) Pain Management Techniques Timing of Activity with Medications M4 PT-IP Mobility and Gait Start: 06/07/22 09:04 Freq: NEEDED Status: Active Protocol: Document 06/07/22 10:00 [facility] (Rec: 06/07/22 10:19 [facility] [id number]) PT-Bed Mobility Assessment Rolling Type of Rolling Log Rolling Level of Assist Minimal Assistance Supine to Sit Supine to Sit Minimal Assistance Sit to Supine Sit to Supine Contact Guard Assistance Scooting Scooting to Edge of Bed Standby Assistance Scooting Up and Down in Bed Minimal Assistance PT-Transfer Assessment Sit to and From Stand Sit to and from Stand Contact Guard Assistance Equipment Transfer Assistive Device Gait Belt,Front Wheeled Walker Transfers Transfer Destination Toilet Transfer Technique pt ambulated Transfer Ability Level of Assist Contact Guard Assistance Comments Mobility Comments pt needed min A for log rolling and bed mobility, once sitting she was CGA only for sit-stand, pt ambulated to the bathroom with CGA, she required Ashley for support of her UE to lower to the toilet, after toileting she was able to stand with CGA. Pt then felt that she could ambulate in the hallway. She ambulated 250 feet and was able to complete 1 set of stairs with CGA. Pt returned to her room and was positioned in the bed side chair with her call light within reach Gait Assessment Gait Gait Assistance Required: Contact Guard Assist Distance (Feet) 250 Assistive Devices Assistive Device Gait Belt,Front Wheeled Walker Gait Deviations General Gait Pattern Decreased Stride Length,Step- to Gait Factors Limiting Gait Function Factors Limiting Gait Function Decreased Strength,Limited Range of Motion,Pain Comments Gait Comments pt ambulated approx 250 feet in hallway with fww and CGA, no loss of balance and pt noted that her right leg was not in pain. She was able to complete 1 set of stairs with rails with CGA Stair Climbing Assessment Evaluation Level of Assist On Stairs Contact Guard Assistance Devices Stair Climbing Assistive Devices None Technique/Endurance Stair Climbing Direction Ascend and Descend Stair Climbing Technique Step Over Step Number of Steps Climbed 3 Query Text: Stair Climbing Set # Repetitions (reps) 1 Comments Stair Climbing Comments pt used railing x2 and CGA up and down 1 set of staits PT-Balance Assessment Sitting Balance and Reactions Static Sitting Balance Ability Normal Dynamic Sitting Balance Ability Normal Standing Balance and Reactions Static Standing Balance Ability Good Dynamic Standing Balance Ability Good Device Used fww M5 PT-IP Objective Assessments Start: 06/07/22 09:04 Freq: NEEDED Status: Active Protocol: Document 06/07/22 10:00 [facility] (Rec: 06/07/22 10:19 [facility] [id number]) Orientation Orientation/Cognition Level of Alertness Alert Gross Range of Motion Upper Extremity ROM Assessment Within Functional Limits Lower Extremity ROM Assessment Within Functional Limits Strength Upper Extremity Strength Assessment Within Functional Limits Lower Extremity Strength Assessment Within Functional Limits Coordination Assessment Gross Coordination Gross Coordination WNL Sensation Assessment Sensation Gross Sensation WNL Muscle Tone Muscle Tone WNL Yes M6 PT-IP Treatment Start: 06/07/22 09:04 Freq: NEEDED Status: Active Protocol: Document 06/07/22 10:00 [facility] (Rec: 06/07/22 10:19 [facility] [id number]) Physical Therapy Treatment Exercises Exercises Ankle Pumps,Gluteal Sets,Quad Sets,Heel Slides Knee ROM Measurement 100 Education Education Provided Precautions,Weight Bearing Status,Post-Op Packet,Safety M7 PT-IP Assessment and Plan Start: 06/07/22 09:04 Freq: NEEDED Status: Active Protocol: Document 06/07/22 10:00 [facility] (Rec: 06/07/22 10:19 [facility] [id number]) PT Summary Assessment and Plan Potential Rehabilitation Potential Excellent Status of Condition at Evaluation Stable Summary Impairments Pain,ROM,Strength,Balance,Bed Mobility,Transfers,Gait, Activity Tolerance Assessment Summary 51 year old female day 1 s/p L3-4 fusion. Pt has a history of uterine cancer with hysterectomy, appendectomy and hernia surgery. She was experiencing right sided LE nerve pain that began in March 2022. It was found that she had a large synovial cyst in the epidural space at L3-4 level. 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 Stella would like to return to this level of function. Pt lives at home with her in a two story house. She will have care from her as well as her sisters once home. She has a walker at home. Pt's pain was a 6/10 initially . She did need min A for bed mobility but once sitting was CGA only for mobility. She was able to walkin in hallway 250 feet with CGA and completed 1 set of stairs with CGA using railings. She did need min A to lower to the toilet but was able to stand on her own following. Stella was educated in her precautions and a hand out was given to her for post op recovery. She understands all precautions well. Pain did lower to a 5 with walking. Pt chose to sit in the bedside chair chair following treatment and respiratory therapy was on their was in to see her. Her call light was left within reach and she was positioned comfortably. Pt will be DC home with her . Goals Bed Mobility Goal Standby Assistance Transfer Goal Standby Assistance Gait Goal Standby Assistance Frequency of Treatment Frequency Of Treatment Discharge Treatment Plan Physical Therapy Treatment Plan Bed Mobility Training,Transfer Training,Gait Training, Therapeutic Exercise,Balance Retraining,Post Op Education Precautions Lumbar Precautions Log Roll,No Twisting,Limit Bending,Lifting Restriction of 10 lbs,Gait Belt above Incisional Area Weight Bearing Status Weight Bearing Status Weight Bear as Tolerated Recommendations To Nursing Amount of Assist Needed 1 Person Assist Discharge Recommendations PT Discharge Recommendations Home with Assistance Transportation Needs at Discharge Private Vehicle
--- NOTE | 2022-06-07 10:37 | PM.DS.1 ---
History of Present Illness History of Present Illness Date Patient Seen: 06/07/22 Time Patient Seen: 10:37 Chief complaint: Back pain Narrative: See progress note Discharge Providers Provider Date of admission: 06/06/22 08:00 Discharge Date: 06/07/22 Primary care physician: Beena Yusuf ND Consults: 06/06/22 16:37 Consult to Occupational Therapy Evaluate & Treat Comment: Physician Instructions: Evaluate and treat Consult to Physical Therapy Evaluate & Treat Comment: Physician Instructions: Evaluate and Treat Discharge provider: Zack Hernandez PA-C Summary Hospital Course Discharge Diagnosis: ?1. 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 L3-4 radiculopathy 3. L3-4 spinal stenosis Hospital Course: 1. L3-4 Postero-lateral and posterior interbody fusion 2. L3-4 interbody cage placement. 3. L3-4 decompressive laminectomy with bilateral facetecomies 4. L3-4 Posterior non-segmental instrumentation 5. [place] of bone marrow from iliac crest 6. Utilization of microsurgical technique and operating microscope Same procedure as scheduled: Yes Indications: Patient has been having chronic back pain and constant lumbar radiculopathy to her right leg for 3 month. Patient failed multiple conservative management with worsening pain weakness and numbness in her lower extremity.? Patient has been having difficulty performing activity of daily living.? After discussing risks benefits of treatment options, patient elected proceed with surgery. Surgeon: Iván Duke Insurance Account Executive: Josy Quispe Click Yes if Unassisted: No Anesthesia Type: General Operative Notes Closure Type: primary Specimen(s): none sent Prosthetic devices, grafts, tissues, transplants, or devices: Globus revolve screws, Rise cage Estimated Blood Loss (mL): 50 Blood products transfused: none Patient admitted to the hospital for the above-mentioned procedure. Patient consented to the same. Patient underwent lumbar fusion on June 06, 2022. Patient back in her room recovering well as in stable condition. Patient has worked with physical therapy. Pain is well managed. She will be discharged home today in stable condition. Status at Discharge Cognitive/behavioral status at discharge: at baseline, oriented Overall status at discharge: patient is progressing back to baseline Exam Vital Signs (past 8 hours): - 06/07/22 06:50 06/07/22 09:19 06/07/22 10:13 Temperature 98.9 F 97.9 F Pulse Rate 64 78 79 Respiratory Rate 18 16 16 Blood Pressure 115/62 122/71 Pulse Oximetry 97 97 98 Oxygen Delivery Method Room Air Oxygen Flow Rate 0 0 Oxygen Delivery Method Room Air Oxygen Flow Rate 0 Narrative Exam Narrative: See progress note PFSH Medical History Asthma COVID-19 virus infection (11/2020) Hypothyroidism Sciatica Spinal stenosis Synovial cyst of lumbar spine Uterine cancer (07/2016) Surgical History History of partial hysterectomy (07/2016) Hx of abdominal surgery (09/2017) Hx of appendectomy (09/2017) Hx of dilation and curettage (05/2016) Hx of umbilical hernia repair Social History household members: spouse Smoking Status: Never smoker alcohol intake: current Discharge Assessment & Plan Assessment and Plan Assessment: Patient progressing as expected status post L3-L4 fusion Plan of Treatment: Multimodal pain management Limit bending, twisting, lifting Follow-up in 2 weeks as scheduled Discharge home today in stable condition Discharge Plan Discharge Plan Patient Disposition: Home Discharge orders & Medications Prescriptions: New acetaminophen 325 mg Tablet 650 mg PO Q6HR PRN (Reason: Pain, Mild (1-3)) Qty: 60 0RF docusate sodium 100 mg Capsule 100 mg PO BID Qty: 10 0RF hydroxyzine pamoate 25 mg Capsule 25 mg PO Q4HR PRN (Reason: Nausea And Vomiting) Qty: 20 0RF Rx Instructions: One tablet every 4 hours as needed for nausea or muscle spasms oxycodone 5 mg Tablet 5 mg PO Q3HR PRN (Reason: Pain, Moderate (4-6)) 60 Days Qty: 60 0RF Rx Instructions: Take 5-10 mg every 3 hours as needed for pain Continued hydrochlorothiazide 25 mg Tablet 25 mg PO QAM PRN (Reason: Menopause symptoms, swelling) cyclobenzaprine 10 mg tablet 10 mg PO TID PRN (Reason: Muscle Spasm) Patient Comments: TAKE ONE TABLET BY MOUTH THREE TIMES DAILY NEEDED fluticasone propion-salmeterol [Advair Diskus] 500-50 mcg/dose blister with device 1 ea INHALATION BID Patient Comments: INHALE ONE PUFF INTO THE LUNGS TWO TIMES DAILY. thyroid (pork) [PSYCHIATRIC SPECIALIST Thyroid] 120 mg tablet 120 mg PO BID Discontinued oxycodone 5 mg Tablet 5 mg PO Q8H PRN (Reason: Pain) ibuprofen 600 mg Tablet 600 mg PO Q6H Patient Comments: pt taking q 5 hours, instructed that was over reccomended dose. Follow up/Referrals: Beena Yusuf ND [Primary Care Provider] - Iván Duke MD [Physician] - (2 weeks as scheduled) Diet/Activity/Treatments Diet: Diet as Tolerated Activity: Limit bending, twisting, lifting Cold/Heat Therapy: Apply ice to back as needed Skin/Wound/Dressing Care Report to your healthcare provider any signs of infection, such as:: chills, fever, night sweats, increased pain, unusual drainage and unusual redness Dressing: Keep dressing clean and dry Visit Report/Discharge Packet Instructions: DI for Constipation, How to Prevent Falls, DI for Prescription Opioid Use, DI for Taking Pain Medication, DI for Transforaminal Lumbar Interbody Fusion Stand Alone Forms: Patient Portal/API, Stroke Signs & Symptoms Discharge Data Primary Care Provider: Beena Yusuf Quality VTE Deep Vein Thrombosis/Pulmonary Embolism Present on Admission: No
--- NOTE | 2022-06-07 11:05 | OT.IP.EVAL ---
Current Diagnoses Spinal stenosis, lumbar region without neurogenic claudication (06/06/22) Other bursal cyst, other site (06/06/22) Surgery Performed Operation Date: 06/06/22 09:15 Actual Procedures p L3-4 TLIF - Iván Duke MD Past Medical History (Last Reviewed 06/07/22 @ 10:38 by Zack Hernandez PA-C) Asthma COVID-19 virus infection (11/2020) Hypothyroidism Sciatica Spinal stenosis Synovial cyst of lumbar spine Uterine cancer (07/2016) Surgical History (Last Reviewed 06/07/22 @ 10:38 by Zack Hernandez PA-C) History of partial hysterectomy (07/2016) Hx of abdominal surgery (09/2017) Hx of appendectomy (09/2017) Hx of dilation and curettage (05/2016) Hx of umbilical hernia repair Occupational Therapy Inpatient Evaluation/Re-Eval M1 PT/OT-IP Prior Functional Status Start: 06/07/22 12:24 Freq: NEEDED Status: Active Protocol: Document 06/07/22 10:32 [facility] (Rec: 06/07/22 12:39 [facility] [id number]) Medical Review Prior Functional Status Medical History Reviewed Yes Diet/Fluid Consistency Regular Mobility and Gait pt described a great deal of pain since March 2022 , Right LE radicular symptms and had been limited with her mobility and she tried to walk in her house Activities of Daily Living and IADL's Pt able to do ADl but having pain. 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 M2 OT-IP Current Condition Start: 06/07/22 12:24 Freq: Status: Active Protocol: Document 06/07/22 10:32 [facility] (Rec: 06/07/22 12:39 [facility] [id number]) Occupational Therapy Current Condition Current Condition Evaluation Date 06/07/22 Treatment Diagnosis S/p L3-4 postero-lateral interbody Diagnosis Onset Date 06/06/22 Post Operative Precautions Lumbar Precautions Log Roll,No Twisting,Limit Bending,Lifting Restriction of 10 lbs,Gait Belt above Incisional Area M3 OT- IP Subjective and Pain Start: 06/07/22 12:24 Freq: Status: Active Protocol: Document 06/07/22 10:32 [facility] (Rec: 06/07/22 12:39 [facility] [id number]) OT- Subjective Occupational Therapy Visit Type Type Initial Evaluation Visit Start Time 10:32 Visit Stop Time 11:05 Total Visit Minutes 33 Occupational Therapy Visit Comments Patient Comments Pt agreed to get up and her present for caregiver training. Patient/Caregiver Goals TO go home OT Pain Assessment Pain When Pain Assessed At Rest Pain Present Pain Present Pain Reported Location Lower Back Intensity 7 Scale Used Numeric (0 - 10) M4 OT- IP ADL's Start: 06/07/22 12:24 Freq: Status: Active Protocol: Document 06/07/22 10:32 [facility] (Rec: 06/07/22 12:39 [facility] [id number]) OT EJD-Tead-Vqsiikh General Evaluation Self-Feeding Ability Independent OT ADL-Grooming General Evaluation Grooming Ability Independent OT ADL-Oral Care General Eval Oral Care Ability Independent OT ADL-Dressing General Eval Lower Body Dressing Ability Maximum Assistance Comments OT Dressing Comments Able to show pt LB dressing equipment, but pt states will just have her family assist. Mentioned to her that [employer] is open today if wanting to get equipment. OT ADL-Toileting General Evaluation Toileting Ability Standby Assistance Comments OT Toileting Comments Pt able to reach appropriately . Pt agreed wet-wipes will be helpful and to wear a pad at night so not having to davis to use the bathroom at night. M5 OT- IP IADL's Start: 06/07/22 12:24 Freq: Status: Active Protocol: Document 06/07/22 10:32 [facility] (Rec: 06/07/22 12:39 [facility] [id number]) OT-Instrumental Activities of Daily Living Home Safety Awareness Awareness of Need for Assistance at Home Good Awareness Ability to Problem Solve Emergency Able to Problem Solve Situations Home Safety Comments Pt's to be at home to assist with her needs. M6 OT- IP Functional Cognition Start: 06/07/22 12:24 Freq: Status: Active Protocol: Document 06/07/22 10:32 [facility] (Rec: 06/07/22 12:39 [facility] [id number]) Cognitive Factors Limiting Selfcare Function Cognitive Ability Level of Alertness Alert Patient Orientation Name,Place,Situation Attention Span Ability Capable of Focused Attention, Capable of Sustained Attention Ability to Follow Commands Able to Follow Multi-Step Commands Memory Description No Deficits Noted Safety Awareness Decreased Ability to Apply Precautions Cognitive Comments Cognitive Assessment Comments Pt able to follow back precautions after reminders especially for log rolling needs. OT- Vision and Hearing OT- Hearing Assessment OT- Hearing Assessment WFL M7 OT- IP Mobility and Balance Start: 06/07/22 12:24 Freq: Status: Active Protocol: Document 06/07/22 10:32 [facility] (Rec: 06/07/22 12:39 [facility] [id number]) OT- Bed Mobility Assessment Supine to Sit Supine to Sit Assist Standby Assistance,Bedrails Sit to Supine Sit to Supine Assist Contact Guard Assistance, Bedrails Scooting Scooting to Edge of Bed Standby Assistance OT-Transfer Assessment Sit to and From Stand Sit to and from Stand Standby Assistance,Contact Guard Assistance Transfers Transfer Ability Standby Assistance Technique Transfer Destination Bed,Chair,Toilet Transfer Technique Stand Step Pivot Devices Transfer Assistive Devices Gait Belt,Front Wheeled Walker Comments Mobility Comments Pt needing to grab FWW to help stand up from lower surfaces and educated for her to hold the FWW in place. Also educated to hold the FWW next to the bed so pt able to use it to assist with bed mobility needs. Pt has a high bed and will probably be beneficial to use a step to increased her ease to get back into bed at this time. OT- Gait Assessment Comments Gait Ability Comments CGA to SBA with FWW, pt's able to show good safety and understanding to be able to assist for transfer, bed mobility , and gait belt management needs. Pt trying to walk without the FWW and a bit unsteady and educated her to just stick to using the FWW for now for safety. OT- Balance Assessment Sitting Balance and Reactions Static Sitting Balance Ability Normal Dynamic Sitting Balance Ability Good Standing Balance and Reactions Static Standing Balance Ability Good Dynamic Standing Balance Ability Fair M9 OT- IP Assessment and Plan Start: 06/07/22 12:24 Freq: Status: Active Protocol: Document 06/07/22 10:32 [facility] (Rec: 06/07/22 12:39 [facility] [id number]) OT Summary Assessment and Plan Potential Rehabilitation Potential Excellent Analytic Complexity at Evaluation Low Summary OT Impairments Pain,Balance,Functional Mobility,Dressing,Toileting, Bathing,Toilet Transfers, Shower Transfers Progress Towards Goals Progressing Toward Goals Assessment Summary Pt low complexity and pt's able to participate in caregiver training for ADl and mobility needs. Pt to go home with her when medically stable. Goals Dressing Goal Independent Toileting Goal Independent Bathing Goal Independent Toilet Transfer Goal Independent Shower Transfer Goal Independent Days to Meet Goals 33 Frequency of Treatment Frequency Of Treatment Once a Day Treatment Plan OT Treatment Plan ADL Training,Functional Mobility,Patient/Family Education,Discharge Planning Discharge Recommendations OT Discharge Recommendations Home with Assistance Transportation Needs at Discharge Private Vehicle
[2022-06-07] MEDS: OXYCODONE IR 10 MG TABLET PO (12:54)
--- NOTE | 2022-06-07 15:45 | OT.IP.TRT ---
Current Diagnoses Spinal stenosis, lumbar region without neurogenic claudication (06/06/22) Other bursal cyst, other site (06/06/22) Surgery Performed Operation Date: 06/06/22 09:15 Actual Procedures p L3-4 TLIF - Iván Duke MD Occupational Therapy Treatment Note M2 OT-IP Current Condition Start: 06/07/22 12:24 Freq: Status: Active Protocol: Document 06/07/22 10:32 [facility] (Rec: 06/07/22 12:39 [facility] [id number]) Occupational Therapy Current Condition Current Condition Evaluation Date 06/07/22 Treatment Diagnosis S/p L3-4 postero-lateral interbody Diagnosis Onset Date 06/06/22 Post Operative Precautions Lumbar Precautions Log Roll,No Twisting,Limit Bending,Lifting Restriction of 10 lbs,Gait Belt above Incisional Area M3 OT- IP Subjective and Pain Start: 06/07/22 12:24 Freq: Status: Active Protocol: Document 06/07/22 15:45 [facility] (Rec: 06/07/22 15:56 [facility] [id number]) OT- Subjective Occupational Therapy Visit Type Type Treatment Note Visit Start Time 16:30 Visit Stop Time 16:43 Total Visit Minutes 23 Occupational Therapy Visit Comments Patient Comments Pt requesting to do log rolling again for training for her . Patient/Caregiver Goals To go home. OT Pain Assessment Pain When Pain Assessed At Rest Pain Present Pain Present Pain Reported Document 06/07/22 15:45 [facility] (Rec: 06/07/22 15:56 [facility] [id number]) OT- Bed Mobility Assessment Rolling Level of Assistance Standby Assistance,Bedrails Supine to Sit Supine to Sit Assist Minimal Assistance Sit to Supine Sit to Supine Assist Minimal Assistance Scooting Scooting to Edge of Bed Standby Assistance OT-Transfer Assessment Sit to and From Stand Sit to and from Stand Minimal Assistance Transfers Transfer Ability Standby Assistance Technique Transfer Destination Bed Transfer Technique Stand Step Pivot Devices Transfer Assistive Devices None,Gait Belt,Front Wheeled Walker Comments Mobility Comments Able to re-train pt's to be able to assist pt for all bed mobility needs and able to practice with a step to increased ease to get into the bed. Pt able to walk with the FWW and able to take more steady steps without the FWW at this time. Use of FWW still recommended. OT- Balance Assessment Sitting Balance and Reactions Static Sitting Balance Ability Normal Dynamic Sitting Balance Ability Good Standing Balance and Reactions Static Standing Balance Ability Normal Dynamic Standing Balance Ability Good M9 OT- IP Assessment and Plan Start: 06/07/22 12:24 Freq: Status: Active Protocol: Document 06/07/22 15:45 [facility] (Rec: 06/07/22 15:56 [facility] [id number]) OT Summary Assessment and Plan Potential Rehabilitation Potential Excellent Analytic Complexity at Evaluation Low Summary OT Impairments Pain,Balance,Functional Mobility,Dressing,Toileting, Bathing,Toilet Transfers, Shower Transfers Progress Towards Goals Progressing Toward Goals Assessment Summary Able to re-training pt's for bed mobility needs per pt's request and pt looking to go home when medically stable. Frequency of Treatment Frequency Of Treatment Twice a Day Treatment Plan OT Treatment Plan ADL Training,Functional Mobility,Patient/Family Education,Discharge Planning Discharge Recommendations OT Discharge Recommendations Home with Assistance Transportation Needs at Discharge Private Vehicle
--- NOTE | 2022-06-07 18:54 | PC.NURSE ---
Discharge: Pain control issues this am. notified, see new orders. Started oxy 10mg for pt and that was working better for pain. PT saw this am and gave d/c instructions. Later came back to instruct spouse. PA here and gave d/c instructions. Pt understands lami precautions, weight limit of 10 pounds for the next 4 to 6 weeks. She is eating small amts w/out problems. Vds w/out diff. Once oxy was increased felt her pain was in [place] control. She was offered to have MD called to try something else and she didn't want to. She wants to go home. Dressing changed to low back and coversite was placed, given one extra dressing. Reviewed discharge packet. Questions answered. Pt d/c to home via auto w/spouse.
== END 2022-06-07 17:03 | disposition home or self-care (01) | DRG 455 ==
PROVIDERS: Admitting Provider Orthopaedic Surgery Orthopaedic Surgery of the Spine; PCP Naturopath; Referring Provider Orthopaedic Surgery Orthopaedic Surgery of the Spine; Visit Provider Orthopaedic Surgery Orthopaedic Surgery of the Spine
PROC: 0SG00AJ Fusion of Lumbar Vertebral Joint with Interbody Fusion Device, Posterior Approach, Anterior Column, Open Approach (ICD-10-PCS; principal; 2022-06-06 09:15)
DX: M48.061 Spinal stenosis, lumbar region without neurogenic claudication (principal); M71.38 Other bursal cyst, other site; M51.16 Intervertebral disc disorders with radiculopathy, lumbar region; J45.909 Unspecified asthma, uncomplicated; Z20.822 Contact with and (suspected) exposure to COVID-19
CPT/HCPCS: 72100; 76000; 94640; 97161; 97165; 97530; C9803; C1831; C9290; J0690; J1100; J1170; J2250; J2405; J2704; J3010; J3410; J7613

== ENCOUNTER 2022-06-08 13:50 | Observation (INO) | payer OTHER, SELFPAY ==
[2022-06-06 16:54] VITALS: BMI 23.1
[2022-06-08] VITALS (14 sets, daily range): BP systolic 118–145; BP diastolic 65–82; PULSE 70–84; RESP 16–29; TEMP 36.4–36.6; O2SAT 93–99; BMI 23.3
--- NOTE | 2022-06-08 14:25 | DI.RAD.S_ITS ---
PROCEDURE: XR ABDOMEN 1V X-ray chest one view INDICATIONS: post Lspine surgery, chills, back pain, no bm TECHNIQUE: One view of the abdomen acquired. One view of the chest also acquired. COMPARISON: [facility], CT, CT ABDOMEN PELVIS W CON, 06/08/2022, 15:35. FINDINGS/IMPRESSION: Abdomen: Prominent loops of gas and stool filled large bowel, likely constipation. Bowel is better evaluated on recent CT. Partially evaluated lumbar fusion hardware. No suspicious calcifications. Chest: Mildly prominent interstitium, possibly edema or atypical infection. Likely superimposed atelectasis. Consider future imaging surveillance to assess for resolution. Heart size is normal. Dictated by: Sravan Rodriguez M.D. on 06/08/2022 at 16:43 Approved by: Sravan Rodriguez M.D. on 06/08/2022 at 16:46
[2022-06-08 14:34] LABS: Prothrombin Time 11.8 SECONDS (10.1-12.7)
[2022-06-08 14:35] LABS: Add Manual Diff / Slide Review NO; Basophils Absolute Auto 0 /uL (0-100); Basophils Percent Auto 0.3 % (0-2); Eosinophils Absolute Auto 200 /uL (0-450); Eosinophils Percent Auto 1.7 % (2-4); Hematocrit 35.5 % (36-46); Hemoglobin 12.5 g/dL (12.0-16.0); Lymphocytes Absolute Auto 1300 /uL (1100-4500); Lymphocytes Percent Auto 11.7 % (25-40); Mean Corpuscular HGB Conc 35.1 % (30-36); Mean Corpuscular Hemoglobin 30.9 PG (26-34); Monocytes Absolute Auto 500 /uL (0-900); Monocytes Percent Auto 4.6 % (3-14); Neutrophils Absolute Auto 9300 /uL (1500-7000); Neutrophils Percent Auto 81.7 % (50-75); Platelet Count 217 X10^3/uL (150-400); Red Blood Cell Count 4.04 X10^6/uL (4.0-5.2); Red Cell Distribution Width 13.3 % (11.6-14.8); White Blood Cell Count 11.4 X10^3/uL (4.5-11.0)
[2022-06-08 14:39] LABS: Alanine Aminotransferase 28 IU/L (<35); Albumin 3.9 g/dL (3.5-5.0); Albumin Globulin Ratio 1.4 (1.0-2.8); Alkaline Phosphatase 44 U/L (38-126); Aspartate Aminotransferase 34 IU/L (14-36); BUN Creatinine Ratio 23.3 (6-22); Bilirubin Total 0.6 mg/dL (0.2-1.3); Blood Urea Nitrogen 10 mg/dL (7-17); Calcium 8.6 mg/dL (8.4-10.2); Carbon Dioxide 25 mmol/L (22-32); Chloride 97 mmol/L (98-107); Creatine Kinase 317 U/L (30-135); Estimated Glomerular Filt Rate > 60 mL/min (>60); Globulin 2.8 g/dL (1.7-4.1); Glucose 99 mg/dL (70-100); HEMOLYSIS < 15 (0-50); Lactate (Lactic Acid) 1.5 mmol/L (0.7-2.1); Potassium 3.2 mmol/L (3.4-5.1); Sodium 129 mmol/L (137-145); Total Protein 6.7 g/dL (6.3-8.2)
[2022-06-08 14:43] LABS: PTT Partial Thromboplastin Tim 31 SECONDS (26-36)
[2022-06-08 14:52] LABS: Troponin I < 0.012 ng/mL (0.01-0.034)
[2022-06-08 14:55] LABS: CKMB % Relative Index 0.2 % (1.5-5.0); Creatine Kinase MB 0.49 ng/mL (<2.37)
[2022-06-08 14:56] LABS: Procalcitonin 0.04 ng/mL (<0.5)
[2022-06-08] MEDS: ONDANSETRON 4 MG/2 ML INJ IV ×2 (15:04→23:12)
[2022-06-08] MEDS: HYDROMORPHONE 0.5 MG INJ IV ×2 (15:04→20:53)
--- NOTE | 2022-06-08 15:09 | ED.BACK ---
HPI - Back Pain/Injury <Stacy Siegel, DO - Last Filed: 06/09/22 07:30> General Chief Complaint: Back Pain/Injury Stated Complaint: L3 Lf effusion, fever/Chills Time Seen by Provider: 06/08/22 14:24 Source: patient, family, RN notes reviewed and old records reviewed Mode of arrival: EMS Limitations: no limitations History of Present Illness HPI Narrative: This is a 51-year-old female 2 days status post L3-L4 fusion, cage placement with decompressive laminectomy with bilateral fasciotomies for L3-L4 synovial cyst and spinal stenosis, patient also notes she is had prior bowel obstructions she had a prior complicated appendicitis that resulted in perforation, bowel obstructions and prior hysterectomy. She had a hernia repair umbilical, that was followed by mesh hernia repair. Patient states she had surgery on the , she is been having persistent pain, she states she was still receiving IV pain medications regularly as well as oral prior to discharge she is been taking oxycodone 5-10 mg every 3 hours, she is been using stool softeners. No Tylenol, no hydroxyzine. Patient states pain was not really well controlled prior to discharge but she was ambulating with a walker, she states pain has increased mostly in the lower back but now also in her abdomen. She denies fevers she is had some chills, she is had nausea but no vomiting. She denies chest pain or shortness of breath she states no bowel movements since the 05 of June, Monday. She states she is passing flatus. She states feels very full down like there is a bowel movement ready to come out. Patient states no urinary retention that she appreciates, no dysuria urgency frequency or new incontinence. She states she does take medication for, parathyroid disease and had hysterectomy for prior cancer. She had an appendectomy which had perforated and resulted in ex lap with a drain in place afterwards does not sound like she would an actual resection. Patient denies tobacco, alcohol or illicit she lives independently with her at home. She is been ambulating with a shuffling gait at home but has been difficult. She states she was having significant pain down her right leg before the surgery and that has actually significantly improved. Dr. Gomez was her spinal surgeon, Beena Yusuf is her PCP. Related Data Home Medications Medication Instructions Recorded Confirmed fluticasone 500 mcg-salmeterol 50 1 ea inhalation BID 05/16/22 06/09/22 mcg/dose blistr powdr for inhalation (Advair Diskus) thyroid (pork) 120 mg tablet ([employer] 120 mg PO BID 05/16/22 06/09/22 Thyroid) hydrochlorothiazide 25 mg tablet 25 mg PO QAM PRN Menopause 06/01/22 06/09/22 symptoms, swelling Previous Rx's Medication Instructions Recorded acetaminophen 325 mg tablet 650 mg PO Q6HR PRN Pain, Mild 06/07/22 (1-3) #60 tabs docusate sodium 100 mg capsule 100 mg PO BID #10 caps 06/07/22 hydroxyzine pamoate 25 mg capsule 25 mg PO Q4HR PRN Nausea And 06/07/22 Vomiting #20 caps oxycodone 5 mg tablet 5 mg PO Q3HR PRN Pain, Moderate 06/07/22 (4-6) 60 days #60 tabs Allergies Allergy/AdvReac Type Severity Reaction Status Date / Time No Known Drug Allergies Allergy Verified 06/06/22 08:16 Review of Systems <Stacy Siegel DO - Last Filed: 06/09/22 07:30> Review of Systems ROS Unobtainable: All systems reviewed & are unremarkable except as noted in HPI and below Patient History <Stacy Siegel DO - Last Filed: 06/09/22 07:30> Medical History Asthma COVID-19 virus infection (11/2020) Hypothyroidism Sciatica Spinal stenosis Synovial cyst of lumbar spine Uterine cancer (07/2016) Surgical History History of partial hysterectomy (07/2016) Hx of abdominal surgery (09/2017) Hx of appendectomy (09/2017) Hx of dilation and curettage (05/2016) Hx of umbilical hernia repair Social History household members: spouse Smoking Status: Never smoker alcohol intake: current Smoking Status: Never smoker alcohol intake frequency: holidays/special occasions only Substance Use Type: does not use Exam <Stacy Siegel DO - Last Filed: 06/09/22 07:30> Narrative Exam Narrative: GENERAL: Alert and oriented x three, well-nourished female in moderate distress. HEENT: Head normocephalic, atraumatic, EOMI, pupils reactive, face symmetric, moist mucous membranes NECK: Supple, full range of motion CARDIOVASCULAR: Regular rate and rhythm without murmurs, rubs or gallops. No swelling bilateral lower extremities. RESPIRATORY: Breath sounds equal bilaterally, no wheezes rales or rhonchi. ABDOMEN: Soft, generalized tenderness but greatest in the pelvic region. Patient is distended and feels full. Normoactive bowel sounds all 4 quadrants. No guarding or rebound, rigidity, no mass appreciated. : No CVA tenderness BACK: No cervical, thoracic vertebral point tenderness. Patient has lumbar vertebral tenderness. Patient's incision shows Patient has decreased range of motion . Rectal exam is [normal sphincter tone/decreased tone/no tone/deferred or refused]. Muscle strength is 5/5 with plantar and dorsiflexion, patient politely refuses to tab attempt to lift or move her legs secondary to pain, , DTRs are 2/4 and lower extremities. Dorsalis pedis and tibialis pulses are 2+ and lower extremities. Sensation is intact in the lower extremities. EXTREMITIES: Normal range of motion, no clubbing or edema. Neurovascularly intact NEUROLOGICAL: Cranial nerves II through XII grossly intact. Moving all extremities SKIN: Warm, dry, no petechiae, no rashes or lesions. Initial Vital Signs Initial Vital Signs: Vital Signs Pulse Rate 84 06/08/22 13:55 Blood Pressure 145/80 H 06/08/22 13:55 Pulse Oximetry 98 06/08/22 13:55 <Josias Coronado, DO - Last Filed: 06/08/22 23:26> Initial Vital Signs Initial Vital Signs: Vital Signs Pulse Rate 84 06/08/22 13:55 Blood Pressure 145/80 H 06/08/22 13:55 Pulse Oximetry 98 06/08/22 13:55 Course <Stacy Siegel, DO - Last Filed: 06/09/22 07:30> Orders Ordered: Enoxaparin Sodium (Enoxaparin 40 Mg/0.4 Ml Syringe) 40 mg SUBCUT DAILY GON[facility]ALEZ Hydromorphone HCl (Hydromorphone 0.5 Mg Inj) 0.5 mg IV Q2H PRN PRN Reason: Pain, Moderate (4-6) Last Admin: 06/09/22 04:45 Dose: 0.5 mg Documented By: Admin: 06/09/22 01:44 Dose: 0.5 mg Documented By: Sodium Chloride (Normal Saline 0.9%) 1,000 mls @ 150 mls/hr IV CONT GONZALEZ Last Admin: 06/09/22 05:10 Dose: 150 mls/hr Documented By: Infusion: 06/09/22 05:10 Dose: 150 mls/hr Documented By: Infusion: 06/09/22 00:10 Dose: 150 mls/hr Documented By: Admin: 06/08/22 22:33 Dose: 150 mls/hr Documented By: NATTY Mineral Oil (Mineral Oil 473 Ml Oil) 15 ml PO BID [facility] Naloxone HCl (Naloxone 0.4 Mg/Ml Vial) 0.2 mg IV Q2MIN PRN PRN Reason: Opiate Reversal Ondansetron HCl (Ondansetron 4 Mg/2 Ml Inj) 4 mg IV Q6HR PRN PRN Reason: Nausea And Vomiting Polyethylene Glycol (Polyethylene Glycol 3350 17 Gm Powd.Pack) 17 gm PO BID [facility] Last Admin: 06/08/22 22:33 Dose: 17 gm Documented By: NATTY Psyllium Hydrophilic Mucilloid (Psyllium Husk 1 Packet) 1 packet PO DAILY [facility] Sennosides (Sennosides 8.6 Mg Tablet) 8.6 mg PO BID [facility] Discontinued Medications Acetaminophen (Acetaminophen 325 Mg Tablet) 975 mg PO NOW ONE Stop: 06/08/22 17:14 Last Admin: 06/08/22 17:49 Dose: 975 mg Documented By: AT Hydromorphone HCl (Hydromorphone 0.5 Mg Inj) 0.5 mg IV NOW ONE Stop: 06/08/22 14:25 Last Admin: 06/08/22 15:04 Dose: 0.5 mg Documented By: AT Hydromorphone HCl (Hydromorphone 0.5 Mg Inj) 0.5 mg IV Q3H PRN PRN Reason: Pain, Moderate (4-6) Stop: 06/09/22 00:00 Last Admin: 06/08/22 20:53 Dose: 0.5 mg Documented By: NATTY Hydromorphone HCl (Hydromorphone 1 Mg Inj) 0.5 mg IV Q1H PRN PRN Reason: Pain, Moderate (4-6) Sodium Chloride (Normal Saline 0.9%) 1,000 mls @ 1,000 mls/hr IV BOLUS ONE Stop: 06/08/22 16:10 Last Infusion: 06/08/22 17:50 Dose: 0 mls/hr Documented By: Admin: 06/08/22 16:14 Dose: 1,000 mls/hr Documented By: AT Ketorolac Tromethamine (Ketorolac 30 Mg/Ml Vial) 15 mg IV NOW ONE Stop: 06/08/22 15:28 Last Admin: 06/08/22 16:14 Dose: 15 mg Documented By: AT Methylnaltrexone [place] (Methylnaltrexone 12 Mg/0.6 Ml Vial) 12 mg SUBCUT NOW ONE Stop: 06/08/22 18:52 Last Admin: 06/08/22 19:19 Dose: 12 mg Documented By: NATTY Mineral Oil (Mineral Oil 1 Each Enema) 1 each [place] NOW ONE Stop: 06/08/22 17:14 Last Admin: 06/08/22 17:20 Dose: 1 each Documented By: AT Ondansetron HCl (Ondansetron 4 Mg/2 Ml Inj) 4 mg IV NOW ONE Stop: 06/08/22 15:01 Last Admin: 06/08/22 15:04 Dose: 4 mg Documented By: AT Ondansetron HCl (Ondansetron 4 Mg/2 Ml Inj) 4 mg IV Q2HR PRN PRN Reason: Nausea And Vomiting Last Admin: 06/09/22 01:51 Dose: 4 mg Documented By: Admin: 06/08/22 23:12 Dose: 4 mg Documented By: NATTY Oxycodone HCl (Oxycodone Ir 5 Mg Tablet) 10 mg PO NOW ONE Stop: 06/08/22 17:14 Last Admin: 06/08/22 17:49 Dose: 10 mg Documented By: AT Polyethylene Glycol (Polyethylene Glycol 3350 17 Gm Powd.Pack) 17 gm PO NOW ONE Stop: 06/08/22 22:20 Last Admin: 06/08/22 22:52 Dose: Not Given Documented By: NATTY Potassium Chloride (Potassium Chloride 20 Meq/15 Ml Udc) 40 meq PO NOW ONE Stop: 06/09/22 04:42 Last Admin: 06/09/22 05:07 Dose: 40 meq Documented By: Vital Signs Vital signs: Vital Signs - 8 hr 06/08/22 16:30 06/08/22 16:00 06/08/22 15:30 Pulse Rate 77 73 78 Respiratory Rate 18 20 18 Blood Pressure 118/65 Pulse Oximetry 99 99 Oxygen Delivery Method Room Air Room Air 06/08/22 17:00 06/08/22 19:00 06/08/22 18:00 Pulse Rate 71 76 74 Respiratory Rate 18 16 18 Blood Pressure 136/69 Pulse Oximetry 99 99 99 Oxygen Delivery Method Room Air Room Air <Josias Coronado DO - Last Filed: 06/08/22 23:26> Orders Ordered: Enoxaparin Sodium (Enoxaparin 40 Mg/0.4 Ml Syringe) 40 mg SUBCUT DAILY [facility] Hydromorphone HCl (Hydromorphone 0.5 Mg Inj) 0.5 mg IV Q2H PRN PRN Reason: Pain, Moderate (4-6) Last Admin: 06/09/22 04:45 Dose: 0.5 mg Documented By: Admin: 06/09/22 01:44 Dose: 0.5 mg Documented By: Sodium Chloride (Normal Saline 0.9%) 1,000 mls @ 150 mls/hr IV CONT [facility] Last Admin: 06/09/22 05:10 Dose: 150 mls/hr Documented By: Infusion: 06/09/22 05:10 Dose: 150 mls/hr Documented By: Infusion: 06/09/22 00:10 Dose: 150 mls/hr Documented By: Admin: 06/08/22 22:33 Dose: 150 mls/hr Documented By: NATTY Mineral Oil (Mineral Oil 473 Ml Oil) 15 ml PO BID [facility] Naloxone HCl (Naloxone 0.4 Mg/Ml Vial) 0.2 mg IV Q2MIN PRN PRN Reason: Opiate Reversal Ondansetron HCl (Ondansetron 4 Mg/2 Ml Inj) 4 mg IV Q6HR PRN PRN Reason: Nausea And Vomiting Polyethylene Glycol (Polyethylene Glycol 3350 17 Gm Powd.Pack) 17 gm PO BID [facility] Last Admin: 06/08/22 22:33 Dose: 17 gm Documented By: NATTY Psyllium Hydrophilic Mucilloid (Psyllium Husk 1 Packet) 1 packet PO DAILY [facility] Sennosides (Sennosides 8.6 Mg Tablet) 8.6 mg PO BID [facility] Discontinued Medications Acetaminophen (Acetaminophen 325 Mg Tablet) 975 mg PO NOW ONE Stop: 06/08/22 17:14 Last Admin: 06/08/22 17:49 Dose: 975 mg Documented By: AT Hydromorphone HCl (Hydromorphone 0.5 Mg Inj) 0.5 mg IV NOW ONE Stop: 06/08/22 14:25 Last Admin: 06/08/22 15:04 Dose: 0.5 mg Documented By: AT Hydromorphone HCl (Hydromorphone 0.5 Mg Inj) 0.5 mg IV Q3H PRN PRN Reason: Pain, Moderate (4-6) Stop: 06/09/22 00:00 Last Admin: 06/08/22 20:53 Dose: 0.5 mg Documented By: NATTY Hydromorphone HCl (Hydromorphone 1 Mg Inj) 0.5 mg IV Q1H PRN PRN Reason: Pain, Moderate (4-6) Sodium Chloride (Normal Saline 0.9%) 1,000 mls @ 1,000 mls/hr IV BOLUS ONE Stop: 06/08/22 16:10 Last Infusion: 06/08/22 17:50 Dose: 0 mls/hr Documented By: Admin: 06/08/22 16:14 Dose: 1,000 mls/hr Documented By: AT Ketorolac Tromethamine (Ketorolac 30 Mg/Ml Vial) 15 mg IV NOW ONE Stop: 06/08/22 15:28 Last Admin: 06/08/22 16:14 Dose: 15 mg Documented By: AT Methylnaltrexone [place] (Methylnaltrexone 12 Mg/0.6 Ml Vial) 12 mg SUBCUT NOW ONE Stop: 06/08/22 18:52 Last Admin: 06/08/22 19:19 Dose: 12 mg Documented By: NATTY Mineral Oil (Mineral Oil 1 Each Enema) 1 each [place] NOW ONE Stop: 06/08/22 17:14 Last Admin: 06/08/22 17:20 Dose: 1 each Documented By: AT Ondansetron HCl (Ondansetron 4 Mg/2 Ml Inj) 4 mg IV NOW ONE Stop: 06/08/22 15:01 Last Admin: 06/08/22 15:04 Dose: 4 mg Documented By: AT Ondansetron HCl (Ondansetron 4 Mg/2 Ml Inj) 4 mg IV Q2HR PRN PRN Reason: Nausea And Vomiting Last Admin: 06/09/22 01:51 Dose: 4 mg Documented By: Admin: 06/08/22 23:12 Dose: 4 mg Documented By: NATTY Oxycodone HCl (Oxycodone Ir 5 Mg Tablet) 10 mg PO NOW ONE Stop: 06/08/22 17:14 Last Admin: 06/08/22 17:49 Dose: 10 mg Documented By: AT Polyethylene Glycol (Polyethylene Glycol 3350 17 Gm Powd.Pack) 17 gm PO NOW ONE Stop: 06/08/22 22:20 Last Admin: 06/08/22 22:52 Dose: Not Given Documented By: NATTY Potassium Chloride (Potassium Chloride 20 Meq/15 Ml Udc) 40 meq PO NOW ONE Stop: 06/09/22 04:42 Last Admin: 06/09/22 05:07 Dose: 40 meq Documented By: Vital Signs Vital signs: Vital Signs - 8 hr 06/08/22 16:30 06/08/22 16:00 06/08/22 15:30 Pulse Rate 77 73 78 Respiratory Rate 18 20 18 Blood Pressure 118/65 Pulse Oximetry 99 99 Oxygen Delivery Method Room Air Room Air 06/08/22 17:00 06/08/22 19:00 06/08/22 18:00 Pulse Rate 71 76 74 Respiratory Rate 18 16 18 Blood Pressure 136/69 Pulse Oximetry 99 99 99 Oxygen Delivery Method Room Air Room Air MDM - Back Pain/Injury <Stacy Seigel, - Last Filed: 06/09/22 07:30> Lab Data 06/08/22 14:07 06/08/22 14:07 Labs: Lab Results 06/08/22 06/08/22 06/08/22 Range/Units 14:07 14:07 14:07 WBC 11.4 H (4.5-11.0) X10^3/uL RBC 4.04 (4.0-5.2) X10^6/uL Hgb 12.5 (12.0-16.0) g/dL Hct 35.5 L (36-46) % MCV 88.0 (80-100) fL MCH 30.9 (26-34) PG MCHC 35.1 (30-36) % RDW 13.3 (11.6-14.8) % Plt Count 217 (150-400) X10^3/uL Neut % (Auto) 81.7 H (50-75) % Lymph % (Auto) 11.7 L (25-40) % [place] % (Auto) 4.6 (3-14) % Eos % (Auto) 1.7 L (2-4) % Baso % (Auto) 0.3 (0-2) % Neut # (Auto) 9300 H (2089-1902) /uL Lymph # (Auto) 1300 (5317-6657) /uL [place] # (Auto) 500 (0-900) /uL Eos # (Auto) 200 (0-450) /uL Baso # (Auto) 0 (0-100) /uL PT 11.8 (10.1-12.7) SECONDS INR 1.0 (0.9-1.3) APTT (26-36) SECONDS Sodium 129 L (137-145) mmol/L Potassium 3.2 L (3.4-5.1) mmol/L Chloride 97 L (98-107) mmol/L Carbon Dioxide 25 (22-32) mmol/L BUN 10 (7-17) mg/dL Creatinine 0.43 L (0.52-1.04) mg/dL Estimated GFR > 60 (>60) mL/min BUN/Creatinine Ratio 23.3 H (6-22) Glucose 99 (70-100) mg/dL Lactate (0.7-2.1) mmol/L Calcium 8.6 (8.4-10.2) mg/dL Total Bilirubin 0.6 (0.2-1.3) mg/dL AST 34 (14-36) IU/L ALT 28 (<35) IU/L Alkaline Phosphatase 44 (38-126) U/L Total Creatine Kinase 317 H (30-135) U/L CK-MB (CK-2) 0.49 (<2.37) ng/mL CK-MB (CK-2) Rel Index 0.2 L (1.5-5.0) % Troponin I < 0.012 (0.01-0.034) ng/mL Total Protein 6.7 (6.3-8.2) g/dL Albumin 3.9 (3.5-5.0) g/dL Globulin 2.8 (1.7-4.1) g/dL Albumin/Globulin Ratio 1.4 (1.0-2.8) Procalcitonin 0.04 (<0.5) ng/mL Urine Color Urine Appearance Urine pH (4.5-8.0) Ur Specific [place] (1.000-1.035) Urine Protein (Negative) Urine Glucose (UA) (Negative) g/dL Urine Ketones (NEGATIVE) Urine Occult Blood (Negative) Urine Nitrate (Negative) Urine Bilirubin (NEGATIVE) Urine Urobilinogen (0.2) E.U./dL Ur Leukocyte Esterase (NEGATIVE) Urine RBC (0-5/HPF) Urine WBC (0-5/HPF) Ur Squamous Epith Cells (0-5/HPF) Urine Bacteria (None) Ur Culture Indicated? 06/08/22 06/08/22 06/08/22 Range/Units 14:07 14:07 16:18 WBC (4.5-11.0) X10^3/uL RBC (4.0-5.2) X10^6/uL Hgb (12.0-16.0) g/dL Hct (36-46) % MCV (80-100) fL MCH (26-34) PG MCHC (30-36) % RDW (11.6-14.8) % Plt Count (150-400) X10^3/uL Neut % (Auto) (50-75) % Lymph % (Auto) (25-40) % [place] % (Auto) (3-14) % Eos % (Auto) (2-4) % Baso % (Auto) (0-2) % Neut # (Auto) (9580-6254) /uL Lymph # (Auto) (3033-0247) /uL [place] # (Auto) (0-900) /uL Eos # (Auto) (0-450) /uL Baso # (Auto) (0-100) /uL PT (10.1-12.7) SECONDS INR (0.9-1.3) APTT 31 (26-36) SECONDS Sodium (137-145) mmol/L Potassium (3.4-5.1) mmol/L Chloride (98-107) mmol/L Carbon Dioxide (22-32) mmol/L BUN (7-17) mg/dL Creatinine (0.52-1.04) mg/dL Estimated GFR (>60) mL/min BUN/Creatinine Ratio (6-22) Glucose (70-100) mg/dL Lactate 1.5 (0.7-2.1) mmol/L Calcium (8.4-10.2) mg/dL Total Bilirubin (0.2-1.3) mg/dL AST (14-36) IU/L ALT (<35) IU/L Alkaline Phosphatase (38-126) U/L Total Creatine Kinase (30-135) U/L CK-MB (CK-2) (<2.37) ng/mL CK-MB (CK-2) Rel Index (1.5-5.0) % Troponin I (0.01-0.034) ng/mL Total Protein (6.3-8.2) g/dL Albumin (3.5-5.0) g/dL Globulin (1.7-4.1) g/dL Albumin/Globulin Ratio (1.0-2.8) Procalcitonin (<0.5) ng/mL Urine Color Yellow Urine Appearance Clear Urine pH 7.0 (4.5-8.0) Ur Specific [place] 1.010 (1.000-1.035) Urine Protein Negative (Negative) Urine Glucose (UA) Negative (Negative) g/dL Urine Ketones Negative (NEGATIVE) Urine Occult Blood Negative (Negative) Urine Nitrate Negative (Negative) Urine Bilirubin Negative (NEGATIVE) Urine Urobilinogen 0.2 (0.2) E.U./dL Ur Leukocyte Esterase Negative (NEGATIVE) Urine RBC None seen (0-5/HPF) Urine WBC None seen (0-5/HPF) Ur Squamous Epith Cells 0-1 /hpf (0-5/HPF) Urine Bacteria None seen (None) Ur Culture Indicated? Cult not indicated ECG Data Attestation: I personally reviewed and interpreted this ECG as follows: Interpretation: Sinus rhythm rate of 60 9p are 166 QRS of 92 and QTC 432. No acute ST changes noted. MDM Narrative Medical decision making narrative: This is a 51-year-old female who presents with increasing pain in her lower back as well as constipation type symptoms but she describes some chills. She is 2 days postoperative V4 lumbar fusion for a synovial cyst. Patient states her pain was not well controlled prior to discharge and they have not been able to get ahead of her pain at home. She states the pain down her leg prior to surgeries actually improved pain is all localized to the back itself. She is had chills but no fevers. She is also been quite constipated she is not had a bowel movement since the past 3 days she feels very full like there is stool at the lower rectal area and has been taking narcotics regularly as well as a stool softener. Patient does have a history of prior obstructions and multiple abdominal surgeries. Patient's labs show a white count of 11, leftward cyst, normal hemoglobin, coags are negative, sodium is 129 with passing a 3 to chloride 97 normal renal function normal LFTs with a CK of 317- troponin negative procalcitonin. X-ray shows air pattern with more stool but based on patient's history CT abdomen pelvis was obtained to evaluate lumbar spine as as for obstructive changes. Patient was given narcotic and are narcotic pain medication which she has found helpful. Fluids. Patient's imaging CT abdomen pelvis showed postsurgical changes on lumbar spine soft tissue density anterior aspect spinal canal L3-L4 could be artifact hematoma can not be excluded. If needed MR with and without contrast would be appropriate, subcutaneous fluid gas collection posterior to spine likely related surgery, distended bladder, gastroenteritis thickening suspicious for gastritis and a large amount of stool consistent with fecal impaction. Patient was up to bedside commode she is uncomfortable but improved after 1 dose of Dilaudid and Toradol. She does not appear to have any acute neurologic changes. She urinated an entire 1L and felt much improved. Plan for enema here in the department. I spoke with Dr. Teresa from Orthopedic surgery she reviewed images suspect this is more just postsurgical change she will consult with Dr. Gomez her orthopedic surgeon let us know if there is any other request her if they would like MR but at this time goal is more pain management and improving stooling. Patient received enema. No output. Patient has ambulated to the bathroom. She is still uncomfortable we discussed she had 1 dose of Tylenol today but has not been taking it regularly every 6 hours, she has not tried hydroxyzine, she was doing 5 mg did increase to 10 mg. She states she was taking narcotics regularly before the surgery and stooling regularly. She has been doing appropriate interventions to help her stool including magnesium citrate orally and Colace 2 or 3 times since discharge she is been trying to ambulate at home and move more. She does feel pressure like she needs to a bowel movement. Plan to try Relistor, additional enema here in the department. Patient signed out to Dr. Coronado while after Relistor given. Dr Coronado; received turned over. Reviewed patient's history and physical exam. Reviewed patient's workup up to this point. Multiple different modalities to try to help with the constipation been unsuccessful. Patient is not vomiting. There is no signs of obstruction on the scan. Patient is also having quite a bit of lower back pain which I suspect is being made worse by the constipation. Patient states that she is unable to go home secondary to the discomfort that she is having in her back. Her states he has been having to help her out at home quite a bit with even moving around because of the pain. Because this patient does require admission to the hospital. Discussed the case with Dr. Santa was on-call for the patient's primary surgeon who will admit for further evaluation and treatment. <Josias Coronado, DO - Last Filed: 06/08/22 23:26> Lab Data Labs: Lab Results 06/08/22 06/08/22 06/08/22 Range/Units 14:07 14:07 14:07 WBC 11.4 H (4.5-11.0) X10^3/uL RBC 4.04 (4.0-5.2) X10^6/uL Hgb 12.5 (12.0-16.0) g/dL Hct 35.5 L (36-46) % MCV 88.0 (80-100) fL MCH 30.9 (26-34) PG MCHC 35.1 (30-36) % RDW 13.3 (11.6-14.8) % Plt Count 217 (150-400) X10^3/uL Neut % (Auto) 81.7 H (50-75) % Lymph % (Auto) 11.7 L (25-40) % [place] % (Auto) 4.6 (3-14) % Eos % (Auto) 1.7 L (2-4) % Baso % (Auto) 0.3 (0-2) % Neut # (Auto) 9300 H (7268-8908) /uL Lymph # (Auto) 1300 (9470-4826) /uL [place] # (Auto) 500 (0-900) /uL Eos # (Auto) 200 (0-450) /uL Baso # (Auto) 0 (0-100) /uL PT 11.8 (10.1-12.7) SECONDS INR 1.0 (0.9-1.3) APTT (26-36) SECONDS Sodium 129 L (137-145) mmol/L Potassium 3.2 L (3.4-5.1) mmol/L Chloride 97 L (98-107) mmol/L Carbon Dioxide 25 (22-32) mmol/L BUN 10 (7-17) mg/dL Creatinine 0.43 L (0.52-1.04) mg/dL Estimated GFR > 60 (>60) mL/min BUN/Creatinine Ratio 23.3 H (6-22) Glucose 99 (70-100) mg/dL Lactate (0.7-2.1) mmol/L Calcium 8.6 (8.4-10.2) mg/dL Total Bilirubin 0.6 (0.2-1.3) mg/dL AST 34 (14-36) IU/L ALT 28 (<35) IU/L Alkaline Phosphatase 44 (38-126) U/L Total Creatine Kinase 317 H (30-135) U/L CK-MB (CK-2) 0.49 (<2.37) ng/mL CK-MB (CK-2) Rel Index 0.2 L (1.5-5.0) % Troponin I < 0.012 (0.01-0.034) ng/mL Total Protein 6.7 (6.3-8.2) g/dL Albumin 3.9 (3.5-5.0) g/dL Globulin 2.8 (1.7-4.1) g/dL Albumin/Globulin Ratio 1.4 (1.0-2.8) Procalcitonin 0.04 (<0.5) ng/mL Urine Color Urine Appearance Urine pH (4.5-8.0) Ur Specific [place] (1.000-1.035) Urine Protein (Negative) Urine Glucose (UA) (Negative) g/dL Urine Ketones (NEGATIVE) Urine Occult Blood (Negative) Urine Nitrate (Negative) Urine Bilirubin (NEGATIVE) Urine Urobilinogen (0.2) E.U./dL Ur Leukocyte Esterase (NEGATIVE) Urine RBC (0-5/HPF) Urine WBC (0-5/HPF) Ur Squamous Epith Cells (0-5/HPF) Urine Bacteria (None) Ur Culture Indicated? 06/08/22 06/08/22 06/08/22 Range/Units 14:07 14:07 16:18 WBC (4.5-11.0) X10^3/uL RBC (4.0-5.2) X10^6/uL Hgb (12.0-16.0) g/dL Hct (36-46) % MCV (80-100) fL MCH (26-34) PG MCHC (30-36) % RDW (11.6-14.8) % Plt Count (150-400) X10^3/uL Neut % (Auto) (50-75) % Lymph % (Auto) (25-40) % [place] % (Auto) (3-14) % Eos % (Auto) (2-4) % Baso % (Auto) (0-2) % Neut # (Auto) (1716-7943) /uL Lymph # (Auto) (7315-5169) /uL [place] # (Auto) (0-900) /uL Eos # (Auto) (0-450) /uL Baso # (Auto) (0-100) /uL PT (10.1-12.7) SECONDS INR (0.9-1.3) APTT 31 (26-36) SECONDS Sodium (137-145) mmol/L Potassium (3.4-5.1) mmol/L Chloride (98-107) mmol/L Carbon Dioxide (22-32) mmol/L BUN (7-17) mg/dL Creatinine (0.52-1.04) mg/dL Estimated GFR (>60) mL/min BUN/Creatinine Ratio (6-22) Glucose (70-100) mg/dL Lactate 1.5 (0.7-2.1) mmol/L Calcium (8.4-10.2) mg/dL Total Bilirubin (0.2-1.3) mg/dL AST (14-36) IU/L ALT (<35) IU/L Alkaline Phosphatase (38-126) U/L Total Creatine Kinase (30-135) U/L CK-MB (CK-2) (<2.37) ng/mL CK-MB (CK-2) Rel Index (1.5-5.0) % Troponin I (0.01-0.034) ng/mL Total Protein (6.3-8.2) g/dL Albumin (3.5-5.0) g/dL Globulin (1.7-4.1) g/dL Albumin/Globulin Ratio (1.0-2.8) Procalcitonin (<0.5) ng/mL Urine Color Yellow Urine Appearance Clear Urine pH 7.0 (4.5-8.0) Ur Specific [place] 1.010 (1.000-1.035) Urine Protein Negative (Negative) Urine Glucose (UA) Negative (Negative) g/dL Urine Ketones Negative (NEGATIVE) Urine Occult Blood Negative (Negative) Urine Nitrate Negative (Negative) Urine Bilirubin Negative (NEGATIVE) Urine Urobilinogen 0.2 (0.2) E.U./dL Ur Leukocyte Esterase Negative (NEGATIVE) Urine RBC None seen (0-5/HPF) Urine WBC None seen (0-5/HPF) Ur Squamous Epith Cells 0-1 /hpf (0-5/HPF) Urine Bacteria None seen (None) Ur Culture Indicated? Cult not indicated MDM Narrative Medical decision making narrative: This is a 51-year-old female who presents with increasing pain in her lower back as well as constipation type symptoms but she describes some chills. She is 2 days postoperative V4 lumbar fusion for a synovial cyst. Patient states her pain was not well controlled prior to discharge and they have not been able to get ahead of her pain at home. She states the pain down her leg prior to surgeries actually improved pain is all localized to the back itself. She is had chills but no fevers. She is also been quite constipated she is not had a bowel movement since the past 3 days she feels very full like there is stool at the lower rectal area and has been taking narcotics regularly as well as a stool softener. Patient does have a history of prior obstructions and multiple abdominal surgeries. Patient's labs show a white count of 11, leftward cyst, normal hemoglobin, coags are negative, sodium is 129 with passing a 3 to chloride 97 normal renal function normal LFTs with a CK of 317- troponin negative procalcitonin. X-ray shows air pattern with more stool but based on patient's history CT abdomen pelvis was obtained to evaluate lumbar spine as as for obstructive changes. Patient was given narcotic and are narcotic pain medication which she has found helpful. Fluids. Patient's imaging CT abdomen pelvis showed postsurgical changes on lumbar spine soft tissue density anterior aspect spinal canal L3-L4 could be artifact hematoma can not be excluded. If needed MR with and without contrast would be appropriate, subcutaneous fluid gas collection posterior to spine likely related surgery, distended bladder, gastroenteritis thickening suspicious for gastritis and a large amount of stool consistent with fecal impaction. Patient was up to bedside commode she is uncomfortable but improved after 1 dose of Dilaudid and Toradol. She does not appear to have any acute neurologic changes. She urinated an entire 1L and felt much improved. Plan for enema here in the department. I spoke with Dr. Teresa from Orthopedic surgery she reviewed images suspect this is more just postsurgical change she will consult with Dr. Gomez her orthopedic surgeon let us know if there is any other request her if they would like MR but at this time goal is more pain management and improving stooling. Patient received enema. No output. Patient has ambulated to the bathroom. She is still uncomfortable we discussed she had 1 dose of Tylenol today but has not been taking it regularly every 6 hours, she has not tried hydroxyzine, she was doing 5 mg did increase to 10 mg. She states she was taking narcotics regularly before the surgery and stooling regularly. She has been doing appropriate interventions to help her stool including magnesium citrate orally and Colace 2 or 3 times since discharge she is been trying to ambulate at home and move more. She does feel pressure like she needs to a bowel movement. Plan to try Relistor, additional enema here in the department. Dr Coronado; received turned over. Reviewed patient's history and physical exam. Reviewed patient's workup up to this point. Multiple different modalities to try to help with the constipation been unsuccessful. Patient is not vomiting. There is no signs of obstruction on the scan. Patient is also having quite a bit of lower back pain which I suspect is being made worse by the constipation. Patient states that she is unable to go home secondary to the discomfort that she is having in her back. Her states he has been having to help her out at home quite a bit with even moving around because of the pain. Because this patient does require admission to the hospital. Discussed the case with Dr. Santa was on-call for the patient's primary surgeon who will admit for further evaluation and treatment. Discharge Plan Departure Patient Disposition: Admitted as Observation Clinical Impression: Back pain with history of spinal surgery, Constipation Admit Date/Time: 06/08/22 22:26 Admit Provider: Sparkle Santa
--- NOTE | 2022-06-08 15:27 | DI.CT.S_ITS ---
PROCEDURE: CT ABDOMEN PELVIS W CON INDICATIONS: s/p Lspine sx, increased back pain, no BM, hx obstructions TECHNIQUE: After the administration of IV contrast, axial sections were acquired from the lung bases to the pubic symphysis. Coronal and sagittal reformats were performed. For radiation dose reduction, the following was used: automated exposure control, adjustment of mA and/or kV according to patient size. COMPARISON: [facility], CR, XR ABDOMEN 1V, 06/08/2022, 14:37. [facility], MR, MR LUMBAR SPINE WO CON, 05/16/2022, 12:32. [facility], CR, XR LUMBAR SPINE 2-3V, 06/06/2022, 10:34. FINDINGS: Image quality: Excellent. Lung bases: Unremarkable. Heart: No significant findings. ABDOMEN: Liver: Unremarkable. Gallbladder: Unremarkable. Biliary ducts: Unremarkable. Pancreas: Unremarkable. Spleen: Unremarkable. Adrenal Glands: Unremarkable. Kidneys and Ureters: Unremarkable. Stomach and Bowel: Stomach is mildly distended and filled with fluid. There is appearance of gastric antral thickening. Small bowel loops, and colon are normal in caliber. There is a large amount of stool in colon Peritoneum: No abnormal intraperitoneal fluid. No free air. Ventral Wall: No hernia. Abdominal Nodes: No retroperitoneal or mesenteric adenopathy by size criteria. Vessels: Aorta and inferior vena cava are normal in size. PELVIS: Pelvic Organs: Unremarkable. Bladder: Bladder is distended. Pelvic Nodes: No enlarged lymph nodes. Miscellaneous: No inguinal hernias are seen. Bones: There are postsurgical changes with discectomy, right theo left hemilaminectomy and posterior fusion at L3 and L4. There is a soft tissue density within the anterior aspect of the spinal canal at L3 and L4. Metallic artifacts is seen, partially obscured area. Subcutaneous fluid and gas collections are seen in the lumbar spine area. IMPRESSION: 1. Large amount of stool in colon consistent with fecal impaction. 2. There is gastric antral thickening suspicious for gastritis. 3. Distended urinary bladder. 4. Postsurgical changes in lumbar spine. There is a soft tissue density within the anterior aspect of the spinal canal at L3 and L4, which could be caused by artifact but a hematoma cannot be excluded. If clinically indicated, MRI with and without contrast would be helpful. 5. Subcutaneous fluid and gas collection posterior to the lumbar spine, likely related to recent surgery. Dictated by: Elizabeth Mar M.D. on 06/08/2022 at 15:50 Approved by: Elizabeth Mar M.D. on 06/08/2022 at 16:20
[2022-06-08] MEDS: KETOROLAC 30 MG/ML VIAL 15 MG IV (16:14)
[2022-06-08] MEDS: SODIUM CHLORIDE 0.9% 1,000 ML 1000 ML IV (16:14)
[2022-06-08 16:28] LABS: Appearance Urine UA CLEAR; Bilirubin Urine UA NEGATIVE (NEGATIVE); Color Urine UA YELLOW; Glucose Urine UA NEGATIVE (Negative); Ketones Urine UA NEGATIVE (NEGATIVE); Leukocyte Esterase Urine UA NEGATIVE (NEGATIVE); Nitrite Urine UA NEGATIVE (Negative); Occult Blood Urine UA NEGATIVE (Negative); Protein Urine UA NEGATIVE (Negative); Urobilinogen Urine UA 0.2 E.U./dL (0.2)
--- NOTE | 2022-06-08 16:36 | PC.NURSE ---
Assisted pt with RADIOLOGY SPECIAL PROCEDURE TECH to stand up to commode. Pt experienced discomfort, overall tolerated well. Dr. Siegel called to bedside to assess pt surgical site, dressing clean and dry. Pt assisted back to bed.
[2022-06-08 16:37] LABS: Bacteria Urine None Seen; Culture Indicated Urine Cult Not Indicated; RBC Urine None Seen (0-5/HPF); Squamous Epithelial Cell Urine 0-1 /HPF (0-5/HPF); WBC Urine None Seen (0-5/HPF)
[2022-06-08] MEDS: MINERAL OIL 1 EACH ENEMA PR (17:20)
[2022-06-08] MEDS: OXYCODONE IR 5 MG TABLET 10 MG PO (17:49)
[2022-06-08] MEDS: ACETAMINOPHEN 325 MG TABLET 975 MG PO (17:49)
[2022-06-08] MEDS: METHYLNALTREXONE 12 MG/0.6 ML VIAL SUBCUT (19:19)
--- NOTE | 2022-06-08 22:25 | P.HP_ITS ---
History of Present Illness History of Present Illness Date Patient Seen: 06/08/22 Date of Onset of Symptoms: 06/08/22 Chief complaint: pain, constipation Narrative: 51 yo F s/p L3-[address] Duke--- d/c from 06/07 now returns with uncontrolled pain, difficulty ambulating and severe constipation refractory to home treatment measures. also failed constipation meds/disimpaction attempts in ER and continued uncontrolled pain. Re-admit for pain and constipation Diagnosis: ?1. 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 L3-4 radiculopathy 3. L3-4 spinal stenosis s/p 1. L3-4 Postero-lateral and posterior interbody fusion 2. L3-4 interbody cage placement. 3. L3-4 decompressive laminectomy with bilateral facetecomies 4. L3-4 Posterior non-segmental instrumentation 5. [place] of bone marrow from iliac crest Patient History Medical History Asthma COVID-19 virus infection (11/2020) Hypothyroidism Sciatica Spinal stenosis Synovial cyst of lumbar spine Uterine cancer (07/2016) Surgical History History of partial hysterectomy (07/2016) Hx of abdominal surgery (09/2017) Hx of appendectomy (09/2017) Hx of dilation and curettage (05/2016) Hx of umbilical hernia repair Family & Social History Social History: household members spouse Safety & Behavioral: Feels Safe in Current Yes Environment Been Physically Hurt or No Threatened By a Person Tobacco & Substance use: Smoking Status Never smoker alcohol intake current alcohol intake frequency holiday/special occasion Substance Use Type does not use Meds Home Medications and Allergies Home Medications Medication Instructions Recorded Confirmed Type fluticasone 500 mcg-salmeterol 50 1 ea inhalation BID 05/16/22 06/09/22 History mcg/dose blistr powdr for inhalation (Advair Diskus) thyroid (pork) 120 mg tablet ([employer] F[employer]ICATION 120 mg PO BID 05/16/22 06/09/22 History Thyroid) hydrochlorothiazide 25 mg tablet 25 mg PO QAM PRN Menopause 06/01/22 06/09/22 History symptoms, swelling acetaminophen 325 mg tablet 650 mg PO Q6HR PRN Pain, Mild 06/07/22 06/09/22 Rx (1-3) #60 tabs docusate sodium 100 mg capsule 100 mg PO BID #10 caps 06/07/22 06/09/22 Rx hydroxyzine pamoate 25 mg capsule 25 mg PO Q4HR PRN Nausea And 06/07/22 06/09/22 Rx Vomiting #20 caps oxycodone 5 mg tablet 5 mg PO Q3HR PRN Pain, Moderate 06/07/22 06/09/22 Rx (4-6) 60 days #60 tabs Allergies Allergy/AdvReac Type Severity Reaction Status Date / Time No Known Drug Allergies Allergy Verified 06/06/22 08:16 Review of Systems Review of Systems Narrative: constipation, back pain ROS: Yes All systems reviewed with the patient and are negative except as otherwise documented Exam Vital Signs (past 8 hours): - 06/08/22 14:30 06/08/22 14:30 06/08/22 15:00 Pulse Rate 78 82 Respiratory Rate 20 Blood Pressure 138/69 Pulse Oximetry 98 97 Oxygen Delivery Method Room Air 06/08/22 15:06 06/08/22 15:06 06/08/22 16:30 Pulse Rate 79 77 Respiratory Rate 29 H 18 Blood Pressure 133/75 Pulse Oximetry 96 99 Oxygen Delivery Method Room Air 06/08/22 16:00 06/08/22 15:30 06/08/22 17:00 Pulse Rate 73 78 71 Respiratory Rate 20 18 18 Blood Pressure 118/65 136/69 Pulse Oximetry 99 99 Oxygen Delivery Method Room Air 06/08/22 19:00 06/08/22 18:00 Pulse Rate 76 74 Respiratory Rate 16 18 Blood Pressure Pulse Oximetry 99 99 Oxygen Delivery Method Room Air Room Air Oxygen Delivery Method Room Air Narrative Exam Narrative: A&O NAD LCTAB, RRR nopain lying in bed (endorse pain trying to ambulate and expresses needs for ass istace with this currently) abd - recently passed gas but no BM yet moving bilat UE, LE, leg pain much improved after surgery back pain with ambulation no numbness 5/5 DF/PF bilateral LE palp DP pulses Objective Imaging CT scan - abdomen: My impression: stool in colon, expected position L3-L4 fusion with cage Radiologist's impression: IMPRESSION: 1. Large amount of stool in colon consistent with fecal impaction. 2. There is gastric antral thickening suspicious for gastritis. 3. Distended urinary bladder. 4. Postsurgical changes in lumbar spine. There is a soft tissue density within the anterior aspect of the spinal canal at L3 and L4, which could be caused by artifact but a hematoma cannot be excluded. If clinically indicated, MRI with and without contrast would be helpful. 5. Subcutaneous fluid and gas collection posterior to the lumbar spine, likely related to recent surgery. Dictated by: Elizabeth Mar M.D. on 06/08/2022 at 15:50 Labs 06/08/22 14:07 06/08/22 14:07 Labs: Laboratory Results - last 24 hr 06/08/22 06/08/22 06/08/22 14:07 14:07 14:07 WBC 11.4 H RBC 4.04 Hgb 12.5 Hct 35.5 L MCV 88.0 MCH 30.9 MCHC 35.1 RDW 13.3 Plt Count 217 Neut % (Auto) 81.7 H Lymph % (Auto) 11.7 L [place] % (Auto) 4.6 Eos % (Auto) 1.7 L Baso % (Auto) 0.3 Neut # (Auto) 9300 H Lymph # (Auto) 1300 [place] # (Auto) 500 Eos # (Auto) 200 Baso # (Auto) 0 PT 11.8 INR 1.0 APTT Sodium 129 L Potassium 3.2 L Chloride 97 L Carbon Dioxide 25 BUN 10 Creatinine 0.43 L Estimated GFR > 60 BUN/Creatinine Ratio 23.3 H Glucose 99 Lactate Calcium 8.6 Total Bilirubin 0.6 AST 34 ALT 28 Alkaline Phosphatase 44 Total Creatine Kinase 317 H CK-MB (CK-2) 0.49 CK-MB (CK-2) Rel Index 0.2 L Troponin I < 0.012 Total Protein 6.7 Albumin 3.9 Globulin 2.8 Albumin/Globulin Ratio 1.4 Procalcitonin 0.04 Urine Color Urine Appearance Urine pH Ur Specific [place] Urine Protein Urine Glucose (UA) Urine Ketones Urine Occult Blood Urine Nitrate Urine Bilirubin Urine Urobilinogen Ur Leukocyte Esterase Urine RBC Urine WBC Ur Squamous Epith Cells Urine Bacteria Ur Culture Indicated? 06/08/22 06/08/22 06/08/22 14:07 14:07 16:18 WBC RBC Hgb Hct MCV MCH MCHC RDW Plt Count Neut % (Auto) Lymph % (Auto) [place] % (Auto) Eos % (Auto) Baso % (Auto) Neut # (Auto) Lymph # (Auto) [place] # (Auto) Eos # (Auto) Baso # (Auto) PT INR APTT 31 Sodium Potassium Chloride Carbon Dioxide BUN Creatinine Estimated GFR BUN/Creatinine Ratio Glucose Lactate 1.5 Calcium Total Bilirubin AST ALT Alkaline Phosphatase Total Creatine Kinase CK-MB (CK-2) CK-MB (CK-2) Rel Index Troponin I Total Protein Albumin Globulin Albumin/Globulin Ratio Procalcitonin Urine Color Yellow Urine Appearance Clear Urine pH 7.0 Ur Specific [place] 1.010 Urine Protein Negative Urine Glucose (UA) Negative Urine Ketones Negative Urine Occult Blood Negative Urine Nitrate Negative Urine Bilirubin Negative Urine Urobilinogen 0.2 Ur Leukocyte Esterase Negative Urine RBC None seen Urine WBC None seen Ur Squamous Epith Cells 0-1 /hpf Urine Bacteria None seen Ur Culture Indicated? Cult not indicated Assessment & Plan Assessment and plan (1) Constipation: Status: Acute (2) Back pain with history of spinal surgery: Status: Acute (3) Hypokalemia: Status: Acute Plan admission for pain control and bowel regimen- ED to consult surgery for additional bowel recommendations. IV fluids ortho to admit- pain control- iv meds until moving bowels. (anticipate 1-2MNs) dc when bowels moving and pain controlled will start with liquid diet in AM- if improving bowels (BM) then adv to general diet after BM then wean back to oral meds--- pt was on 5 oxy q6 prior to surgery replace K+ recheck cmp in AM--if electrolyte imbalance not improving consult hospitalist td brown for DVT prophy H/H stable ok to mobilize with PT may need H/H care Time Spent With Patient Time with patient: less than 30 minutes Critical Care time: I spent a total of [] minutes of critical care time on this patient's care today; this time is exclusive of procedural time. Quality VTE Deep Vein Thrombosis/Pulmonary Embolism Present on Admission: No
[2022-06-08] MEDS: polyethylene glycoL 3350 17 GM POWD.PACK PO (22:33)
[2022-06-08] MEDS: SODIUM CHLORIDE 0.9% 1,000 ML 150 ML IV (22:33)
[2022-06-09 00:19] VITALS: BMI 23.3
[2022-06-09] MEDS: HYDROMORPHONE 0.5 MG INJ IV ×3 (01:44→08:09)
[2022-06-09] MEDS: ONDANSETRON 4 MG/2 ML INJ IV (01:51)
[2022-06-09 04:27] VITALS: BP 136/85; PULSE 74; RESP 18; TEMP 36.7; O2SAT 95
[2022-06-09] MEDS: POTASSIUM CHLORIDE 20 MEQ/15 ML UDC 40 MEQ PO (05:07)
[2022-06-09] MEDS: SODIUM CHLORIDE 0.9% 1,000 ML 150 ML IV ×3 (05:10→21:39)
[2022-06-09] MEDS: polyethylene glycoL 3350 17 GM POWD.PACK PO ×2 (08:09→21:51)
[2022-06-09] MEDS: PSYLLIUM HUSK 1 PACKET PO (08:09)
[2022-06-09] MEDS: SENNOSIDES 8.6 MG TABLET PO ×2 (08:09→21:51)
[2022-06-09] MEDS: ENOXAPARIN 40 MG/0.4 ML SYRINGE SUBCUT (08:10)
[2022-06-09 08:14] VITALS: BP 142/82; PULSE 79; RESP 16; TEMP 37.2; O2SAT 96
[2022-06-09] MEDS: MINERAL OIL 473 ML OIL 15 ML PO (08:29)
[2022-06-09 08:40] LABS: COVID19 -Nasal RAPID Negative (Negative)
[2022-06-09 09:19] LABS: Alanine Aminotransferase 26 IU/L (<35); Albumin 3.5 g/dL (3.5-5.0); Albumin Globulin Ratio 1.2 (1.0-2.8); Alkaline Phosphatase 43 U/L (38-126); Aspartate Aminotransferase 28 IU/L (14-36); BUN Creatinine Ratio 18.2 (6-22); Bilirubin Total 0.6 mg/dL (0.2-1.3); Blood Urea Nitrogen 8 mg/dL (7-17); Calcium 8.3 mg/dL (8.4-10.2); Carbon Dioxide 26 mmol/L (22-32); Chloride 102 mmol/L (98-107); Estimated Glomerular Filt Rate > 60 mL/min (>60); Globulin 2.9 g/dL (1.7-4.1); Glucose 86 mg/dL (70-100); HEMOLYSIS < 15 (0-50); Potassium 3.8 mmol/L (3.4-5.1); Sodium 133 mmol/L (137-145); Total Protein 6.4 g/dL (6.3-8.2)
--- NOTE | 2022-06-09 10:40 | P.PN_ITS ---
Subjective Subjective Date Patient Seen: 06/09/22 Time Patient Seen: 10:40 Interval history: Patient seen this morning and her is present for the entire visit. Continues to have severe back pain with any movement. Pain is more [id number] when lying in bed. Denies fever or chills. She feels a little nauseous but has not been vomiting. Tolerating clear liquids. Patient is passing flatus but no bowel movement yet. Patient reports left-sided stomach pain. Patient has been able to get up and urinate. Exam Vital Signs (past 8 hours): - 06/09/22 04:27 06/09/22 08:14 Temperature 98.1 F 98.9 F Pulse Rate 74 79 Respiratory Rate 18 16 Blood Pressure 136/85 142/82 H Pulse Oximetry 95 96 Oxygen Flow Rate 0 0 Oxygen Delivery Method Room Air Oxygen Flow Rate 0 Narrative Exam Narrative: Pleasant 51-year-old female resting comfortably in bed in no apparent distress. Lumbar dressing is clean, dry and intact. Abdomen normoactive bowel sounds. Mild left lower quadrant tenderness to palpation. No rebound or guarding. Abdomen is mildly distended. Motor functions intact bilateral lower extremities. Sensation grossly intact to light touch bilateral lower extremities. Const General: cooperative, healthy appearing and comfortable Nutritional Appearance: average body habitus Orientation: alert HENMT Head: normal to inspection Eyes Conjunctivae: conjunctivae normal Resp Effort & Inspection: normal respiratory effort and able to speak in complete sentences Objective Imaging CT scan - abdomen: Radiologist's impression: ? IMPRESSION:? ? 1. Large amount of stool in colon consistent with fecal impaction. 2. There is gastric antral thickening suspicious for gastritis. 3. Distended urinary bladder. 4. Postsurgical changes in lumbar spine.? There is a soft tissue density within the anterior aspect of the spinal canal at L3 and L4, which could be caused by artifact but a hematoma cannot be excluded.? If clinically indicated, MRI with and without contrast would be helpful.? 5. Subcutaneous fluid and gas collection posterior to the lumbar spine, likely related to recent surgery. Labs 06/08/22 14:07 06/09/22 08:35 Labs: Laboratory Results - last 24 hr 06/08/22 06/08/22 06/08/22 14:07 14:07 14:07 WBC 11.4 H RBC 4.04 Hgb 12.5 Hct 35.5 L MCV 88.0 MCH 30.9 MCHC 35.1 RDW 13.3 Plt Count 217 Neut % (Auto) 81.7 H Lymph % (Auto) 11.7 L [place] % (Auto) 4.6 Eos % (Auto) 1.7 L Baso % (Auto) 0.3 Neut # (Auto) 9300 H Lymph # (Auto) 1300 [place] # (Auto) 500 Eos # (Auto) 200 Baso # (Auto) 0 PT 11.8 INR 1.0 APTT Sodium 129 L Potassium 3.2 L Chloride 97 L Carbon Dioxide 25 BUN 10 Creatinine 0.43 L Estimated GFR > 60 BUN/Creatinine Ratio 23.3 H Glucose 99 Lactate Calcium 8.6 Total Bilirubin 0.6 AST 34 ALT 28 Alkaline Phosphatase 44 Total Creatine Kinase 317 H CK-MB (CK-2) 0.49 CK-MB (CK-2) Rel Index 0.2 L Troponin I < 0.012 Total Protein 6.7 Albumin 3.9 Globulin 2.8 Albumin/Globulin Ratio 1.4 Procalcitonin 0.04 Urine Color Urine Appearance Urine pH Ur Specific [place] Urine Protein Urine Glucose (UA) Urine Ketones Urine Occult Blood Urine Nitrate Urine Bilirubin Urine Urobilinogen Ur Leukocyte Esterase Urine RBC Urine WBC Ur Squamous Epith Cells Urine Bacteria Ur Culture Indicated? SARS-CoV-2 (PCR) 06/08/22 06/08/22 06/08/22 14:07 14:07 16:18 WBC RBC Hgb Hct MCV MCH MCHC RDW Plt Count Neut % (Auto) Lymph % (Auto) [place] % (Auto) Eos % (Auto) Baso % (Auto) Neut # (Auto) Lymph # (Auto) [place] # (Auto) Eos # (Auto) Baso # (Auto) PT INR APTT 31 Sodium Potassium Chloride Carbon Dioxide BUN Creatinine Estimated GFR BUN/Creatinine Ratio Glucose Lactate 1.5 Calcium Total Bilirubin AST ALT Alkaline Phosphatase Total Creatine Kinase CK-MB (CK-2) CK-MB (CK-2) Rel Index Troponin I Total Protein Albumin Globulin Albumin/Globulin Ratio Procalcitonin Urine Color Yellow Urine Appearance Clear Urine pH 7.0 Ur Specific [place] 1.010 Urine Protein Negative Urine Glucose (UA) Negative Urine Ketones Negative Urine Occult Blood Negative Urine Nitrate Negative Urine Bilirubin Negative Urine Urobilinogen 0.2 Ur Leukocyte Esterase Negative Urine RBC None seen Urine WBC None seen Ur Squamous Epith Cells 0-1 /hpf Urine Bacteria None seen Ur Culture Indicated? Cult not indicated SARS-CoV-2 (PCR) 06/09/22 06/09/22 08:21 08:35 WBC RBC Hgb Hct MCV MCH MCHC RDW Plt Count Neut % (Auto) Lymph % (Auto) [place] % (Auto) Eos % (Auto) Baso % (Auto) Neut # (Auto) Lymph # (Auto) [place] # (Auto) Eos # (Auto) Baso # (Auto) PT INR APTT Sodium 133 L Potassium 3.8 Chloride 102 Carbon Dioxide 26 BUN 8 Creatinine 0.44 L Estimated GFR > 60 BUN/Creatinine Ratio 18.2 Glucose 86 Lactate Calcium 8.3 L Total Bilirubin 0.6 AST 28 ALT 26 Alkaline Phosphatase 43 Total Creatine Kinase CK-MB (CK-2) CK-MB (CK-2) Rel Index Troponin I Total Protein 6.4 Albumin 3.5 Globulin 2.9 Albumin/Globulin Ratio 1.2 Procalcitonin Urine Color Urine Appearance Urine pH Ur Specific [place] Urine Protein Urine Glucose (UA) Urine Ketones Urine Occult Blood Urine Nitrate Urine Bilirubin Urine Urobilinogen Ur Leukocyte Esterase Urine RBC Urine WBC Ur Squamous Epith Cells Urine Bacteria Ur Culture Indicated? SARS-CoV-2 (PCR) Negative [facility] Medical History Asthma COVID-19 virus infection (11/2020) Hypothyroidism Sciatica Spinal stenosis Synovial cyst of lumbar spine Uterine cancer (07/2016) Surgical History History of partial hysterectomy (07/2016) Hx of abdominal surgery (09/2017) Hx of appendectomy (09/2017) Hx of dilation and curettage (05/2016) Hx of umbilical hernia repair Social History household members: spouse Smoking Status: Never smoker alcohol intake: current Assessment & Plan Post-op Postoperative Postoperative status: marginal pain control Postoperative status narrative: Patient is status post L3-L4 posterolateral and posterior interbody fusion on June 06, 2022. CT scan shows large amount of stool in colon consistent with fecal impaction Postoperative plan narrative: Encourage ambulation, limit bending, twisting, lifting Incentive spirometer Ordered oral Dilaudid Added methylnaltrexone and bisacodyl for constipation Continue IV fluids for now. Patient currently on full liquids recommend progressing slowly with this until she has a bowel movement Repeat CBC, CMP tomorrow SCDs and Lovenox for DVT prophylaxis Disposition to be determined Quality VTE Deep Vein Thrombosis/Pulmonary Embolism Present on Admission: No
--- NOTE | 2022-06-09 11:53 | CM.DANOTE ---
Patient is a 51 yo READMIT on 06/08/22 for Severe Constipation/pain. Pt has REG PPO for insurance and her PCP is Dr. Beena Chang. EMR was reviewed. Per Ortho, pt had recent spinal fusion with Dr. Duke and was able to d/c home couple days ago 06/07/22 and returned with significant constipation and could not be disimpacted in ED and admitted for bowel regimen and pain control and ambulation. Per Ortho, pt may need HH at d/c. PT ordered and pending. SW met bedside with pt and spouse and explained role and they confirm they live at home in [place] and they are very active and independent at baseline and own a workout gym and do not use DME at baseline and pt drives. They deny any hx of HH or SNF. Pt and spouse state that pt has had multiple surgeries in the past couple years starting with removal of her uterus from cancer, hernia surgery and then surgery for repair, and ended up in [facility] for 9 days with bowel obstruction and complications and was coded twice. Pt confirms once she discharged home she was needing significant assist to go from sit to stand etc but was able to ambulate with walker in the home but was so tired and weak. Pt aware that likely some of her pain is from constipation and some typical post surg pain. Pt and spouse rightly concerned with discharge too quickly without be more medically stable due to pt's history and now readmission. Pt having some bowel tones now but no bm yet. Pt still significantly uncomfortable. SW discussed HH services and frequency and both admit that HH likely would be helpful at d/c and SW provided the HH Choice list via ipad and paper and no preference. SW called [facility] based on the Vendor Calendar and spoke to Jesús and provided new referral and he will check pt's insurance to confirm they are contracted and will call back. F2F completed. Plan: SW to follow for PT eval and ongoing bowel regimen and return call from [facility] to confirm they can accept. KATRIN Payan Discharge Planning/Care Management CM Discharge Assessment Start: 06/09/22 11:48 Freq: Status: Active Protocol: Document 06/09/22 11:49 BF (Rec: 06/09/22 11:53 BF [id number]) Discharge Planning Assessment Assigned Clinical Assessment Manager KATRNI Hargrove DPOA/Assigned Designee Name informally spouse Vahe Contact Information [phone] Advance Directives? Yes Advance Directives on File No History Provided By Patient,Significant Other, Medical Record Has Patient been admitted in last 30 Yes days? Comment Spinal fusion with d/c 06/07/22 couple days ago to home Prior Living Arrangements House Household Members spouse Type of transporation used prior to Drives own vehicle admit Independent with ADL's Yes Is patient alert and oriented? Yes Caregiver for Another No DME Already Rented / Owned FWW / Walker Patient/Family Preference Home with Home Health Barriers to Discharge No Discharge Plan Home with Home Health Community Services Physical Therapy,Home Health Nurse Transportation Arrangement spouse bedside and can transport Referrals Initiated Home Health If patient plan is home with home health Yes : Has signed face to face form been completed? Medicare Choice List Provided Yes Medicare choice list reviewed on patient,family electronic tablet with SNF/HH Preference no HH preference Whiteboard Updated in Patient Room with Yes name and ext. # of Clinical Assessment Manager Review Status In Process Please Provide Date Initial DC 06/09/22 Assessment Was Performed Next Review Type Continued Stay Review
[2022-06-09] MEDS: CYCLOBENZAPRINE 10 MG TABLET PO ×2 (14:06→21:58)
[2022-06-09] MEDS: METOCLOPRAMIDE 10 MG/2 ML INJ IV ×2 (14:06→21:37)
[2022-06-09 14:07] VITALS: BP 133/81; PULSE 78; RESP 16; TEMP 36.7; O2SAT 96
[2022-06-09] MEDS: HYDROMORPHONE 2 MG TABLET PO (14:08)
--- NOTE | 2022-06-09 14:30 | PC.NURSE ---
Addendum entered by Rossy Echeverria R.N. 06/09/22 20:00: 1940: report to della aceves RN. update given on how today went. update given to Zack Hernandez, who gives ok for another mineral oil enema tonight. patient reports not much relief from nausea or malaise and reports feeling jittery. encouraged her to try some clear liquids, as she has turned most of it down today. willing to accept house supply susan tavon if it is watered down a bit as it is too sweet. states he will go home and get her some bone broth. encouraged her to continue to drink calories as she has not had much in today. tolerating ambulating hallway w/ . dressing to her back incision remains dry and intact, scant amount of shadow drainage on it. explained to next shift how we splinted her back w/ a folded bath blanket and secured w/ a gait belt. Original Note: 1145: assumed care of patient from DAISY Pozo. patient is a/o, voices needs. Ind- SBA mobility and ambulation w/ FWW. mobility is slow going, due to her recent spinal surgery and current impaction. BT present, active. several attempts to have BM in the bathroom have been unsuccessful due to pain in rectum and spine. has a significant bulge noted at rectum and buttocks. very nauseated after receiving numerous medications this morning as ordered, 200cc fluid emesis reported. spoke at length w/ patient and her spouse at bedside. Due to her extensive hx of constipation, impaction, and surgical intervention due to impaction (approx 5 years ago) she verbalized her apprehension w/ taking PO medications and she and spouse agreeable to proceed w/ another attempt w/ mineral oil enema. when supine, patient reports difficulty w/ turning side to side. she is following appropriate log rolling techniques; encouraged her to place several pillows in between knees and legs to assist w/ bed comfort & ease the pain/discomfort of going from a laying down position to EOB. reglan IV, flexeril, and mineral oil enema requested from BRANDON Hernandez, orders received. instructions from Zack to give bisacodyl PO, due to patient's nausea and reluctance to take any more stool meds at this time, she and respectfully declined this med. 1420: prn dilauded PO + flexeril given to prepare for enema. 1530: tolerated enema while sitting on toilet, patient reported a feeling of an urge to push bowel movement out but due to post surgery restrictions she is unable to bear down. tolerated gait belt holding a folded bath blanket around her waist to splint in case she naturally wants to bear down due to the size of the impaction. 1630: patient requesting assistance w/ digital removal of hard stool that is noted to be bulging out at anus. tolerated this in small blocks of time. finally had about a medium very hard stool in the toilet after digital removal of a few of the dry chunks. no bleeding noted, no hemorrhoids. 1730: declined dinner (full liquid) and wants to just rest. left for a little while. patient continues on IVF at 150/hour & reports less nausea, less cramping and slowly starting to feel a little bit better. CTM
--- NOTE | 2022-06-09 14:54 | PT-IP ANOTE ---
Addendum entered and electronically signed by Kole Davis, PT 06/09/22 17:01: Again attempted to see pt 35 minutes later at 1525, pt and RN still in restroom. Original Note: Attempted to start initial PT eval at 1450, patient was in bathroom with nursing, RN yelled out to therapist that they would require at least 20 more minutes, will attempt again to see pt later in the afternoon.
[2022-06-09] MEDS: BISACODYL 5 MG TABLET 10 MG PO (15:33)
[2022-06-09] MEDS: METHYLNALTREXONE 12 MG/0.6 ML VIAL SUBCUT (15:33)
[2022-06-09 20:35] VITALS: BP 142/86; PULSE 90; RESP 19; TEMP 36.6; O2SAT 96
--- NOTE | 2022-06-09 22:53 | PC.NURSE ---
Patient c/o continued abd and back pain, Flexeril given. Abdomen distended, bowel tones active x4Q, positive flatus. Mineral enema given with moderate amount medium firm brown results. Patient c/o intermittent nausea. Scheduled Reglan given, no emesis. Patient ambulating in halls with SBA and FWW.
[2022-06-09 23:20] VITALS: BP 129/75; PULSE 83; RESP 18; TEMP 36.9; O2SAT 95
[2022-06-10] MEDS: SODIUM CHLORIDE 0.9% 1,000 ML 150 ML IV (03:24)
[2022-06-10 03:50] VITALS: BP 132/81; PULSE 84; RESP 20; TEMP 36.4; O2SAT 95
[2022-06-10] MEDS: CYCLOBENZAPRINE 10 MG TABLET PO ×2 (05:26→18:23)
[2022-06-10 06:43] LABS: Add Manual Diff / Slide Review NO; Basophils Absolute Auto 0 /uL (0-100); Basophils Percent Auto 0.6 % (0-2); Eosinophils Absolute Auto 300 /uL (0-450); Eosinophils Percent Auto 5.4 % (2-4); Hematocrit 32.1 % (36-46); Hemoglobin 11.6 g/dL (12.0-16.0); Lymphocytes Absolute Auto 1200 /uL (1100-4500); Lymphocytes Percent Auto 23.7 % (25-40); Mean Corpuscular Hemoglobin 31.5 PG (26-34); Mean Corpuscular Volume 87.4 fL (80-100); Monocytes Absolute Auto 400 /uL (0-900); Monocytes Percent Auto 7.4 % (3-14); Neutrophils Absolute Auto 3100 /uL (1500-7000); Neutrophils Percent Auto 62.9 % (50-75); Platelet Count 211 X10^3/uL (150-400); Red Blood Cell Count 3.67 X10^6/uL (4.0-5.2); Red Cell Distribution Width 13.2 % (11.6-14.8); White Blood Cell Count 4.9 X10^3/uL (4.5-11.0)
[2022-06-10 06:45] LABS: Alanine Aminotransferase 24 IU/L (<35); Albumin 3.3 g/dL (3.5-5.0); Albumin Globulin Ratio 1.2 (1.0-2.8); Alkaline Phosphatase 42 U/L (38-126); Aspartate Aminotransferase 23 IU/L (14-36); BUN Creatinine Ratio 13.6 (6-22); Bilirubin Total 0.5 mg/dL (0.2-1.3); Blood Urea Nitrogen 6 mg/dL (7-17); Calcium 8.2 mg/dL (8.4-10.2); Carbon Dioxide 22 mmol/L (22-32); Chloride 107 mmol/L (98-107); Estimated Glomerular Filt Rate > 60 mL/min (>60); Globulin 2.7 g/dL (1.7-4.1); Glucose 96 mg/dL (70-100); HEMOLYSIS < 15 (0-50); Potassium 3.5 mmol/L (3.4-5.1); Sodium 136 mmol/L (137-145)
[2022-06-10 08:30] VITALS: BP 139/79; PULSE 76; RESP 16; TEMP 36.7; O2SAT 96
--- NOTE | 2022-06-10 08:37 | PM.PN.1 ---
Subjective Subjective Date Patient Seen: 06/10/22 Time Patient Seen: 08:37 Interval history: Patient is complaining of moderate to severe abdominal pain. She has moderate low back pain. Her is at bedside and has been helping manually disimpact her stool. She had 1 small marble size bowel movement this morning. Her abdomen is still very distended and she is in a significant amount of discomfort. She is currently using Dulcolax, mineral oil, Senokot, MiraLax. Patient has a long history of multiple abdominal and pelvic surgeries including hysterectomy, appendectomy with a postoperative bowel obstruction requiring emergent surgery. Exam Vital Signs (past 8 hours): - 06/10/22 03:50 Temperature 97.5 F L Pulse Rate 84 Respiratory Rate 20 Blood Pressure 132/81 Pulse Oximetry 95 Oxygen Flow Rate 0 Oxygen Delivery Method Room Air Oxygen Flow Rate 0 Narrative Exam Narrative: 51-year-old female in moderate distress, standing by the sink. Lumbar dressing is clean, dry, intact. No surrounding erythema, induration, or leola pus. Bilateral lower extremity: Motor functions are grossly intact, sensation is grossly intact to light touch Abdominal exam: Moderately distended and tender to palpation in the left upper and left lower quadrants. Objective Labs 06/10/22 05:55 06/10/22 05:55 Labs: Laboratory Results - last 24 hr 06/09/22 06/09/22 06/10/22 08:21 08:35 05:55 WBC RBC Hgb Hct MCV MCH MCHC RDW Plt Count Neut % (Auto) Lymph % (Auto) [place] % (Auto) Eos % (Auto) Baso % (Auto) Neut # (Auto) Lymph # (Auto) [place] # (Auto) Eos # (Auto) Baso # (Auto) Sodium 133 L 136 L Potassium 3.8 3.5 Chloride 102 107 Carbon Dioxide 26 22 BUN 8 6 L Creatinine 0.44 L 0.44 L Estimated GFR > 60 > 60 BUN/Creatinine Ratio 18.2 13.6 Glucose 86 96 Calcium 8.3 L 8.2 L Total Bilirubin 0.6 0.5 AST 28 23 ALT 26 24 Alkaline Phosphatase 43 42 Total Protein 6.4 6.0 L Albumin 3.5 3.3 L Globulin 2.9 2.7 Albumin/Globulin Ratio 1.2 1.2 SARS-CoV-2 (PCR) Negative 06/10/22 05:55 WBC 4.9 D RBC 3.67 L Hgb 11.6 L Hct 32.1 L MCV 87.4 MCH 31.5 MCHC 36.0 RDW 13.2 Plt Count 211 Neut % (Auto) 62.9 Lymph % (Auto) 23.7 L [place] % (Auto) 7.4 Eos % (Auto) 5.4 H Baso % (Auto) 0.6 Neut # (Auto) 3100 Lymph # (Auto) 1200 [place] # (Auto) 400 Eos # (Auto) 300 Baso # (Auto) 0 Sodium Potassium Chloride Carbon Dioxide BUN Creatinine Estimated GFR BUN/Creatinine Ratio Glucose Calcium Total Bilirubin AST ALT Alkaline Phosphatase Total Protein Albumin Globulin Albumin/Globulin Ratio SARS-CoV-2 (PCR) [facility] Medical History Asthma COVID-19 virus infection (11/2020) Hypothyroidism Sciatica Spinal stenosis Synovial cyst of lumbar spine Uterine cancer (07/2016) Surgical History History of partial hysterectomy (07/2016) Hx of abdominal surgery (09/2017) Hx of appendectomy (09/2017) Hx of dilation and curettage (05/2016) Hx of umbilical hernia repair Social History household members: spouse Smoking Status: Never smoker alcohol intake: current Assessment & Plan Assessment & Plan narrative: Patient is status post L3-L4 posterolateral and posterior interbody fusion on June 06, 2022. CT scan shows large amount of stool in colon consistent with fecal impaction. History multiple abdominal surgeries and acute bowel obstruction with emergent surgery in the past. Narrative: -mobilize with physical therapy. Weightbearing as tolerated. Encourage ambulation, limit bending, twisting, lifting x 6 wks -Incentive spirometer -added Tylenol scheduled, tramadol as needed for moderate pain. Dilaudid as needed for severe pain -continue with Dulcolax, mineral oil, Senokot. Increase MiraLax to t.i.d. -Hep-Lock IV as patient is tolerating oral fluids well -Patient currently on full liquids recommend progressing slowly with this until she has a bowel movement -Repeat CBC, CMP tomorrow -SCDs and Lovenox for DVT prophylaxis -general surgery consultation with Dr. Carballo was requested today D-isposition to be determined Time Spent With Patient Critical Care time: I spent a total of [] minutes of critical care time on this patient's care today; this time is exclusive of procedural time. Quality VTE Deep Vein Thrombosis/Pulmonary Embolism Present on Admission: No
[2022-06-10] MEDS: PSYLLIUM HUSK 1 PACKET PO (09:43)
[2022-06-10] MEDS: METOCLOPRAMIDE 10 MG/2 ML INJ IV ×2 (09:43→20:07)
[2022-06-10] MEDS: ENOXAPARIN 40 MG/0.4 ML SYRINGE SUBCUT (09:43)
[2022-06-10] MEDS: polyethylene glycoL 3350 17 GM POWD.PACK PO (09:43)
[2022-06-10] MEDS: SENNOSIDES 8.6 MG TABLET PO (09:43)
--- NOTE | 2022-06-10 10:56 | PT-IP ANOTE ---
Screened pt for PT needs. Upon entering room, pt was ambulating independently from restroom to sink without an assistive device, and then stood at bedside for 10+ minutes discussing overall recovery. Pt and were then able to get pt into bed while maintaining spinal precautions. Therapist and patient both agree that mobility and safety not an issue currently, feels confident in her current level of function, other than what is limited by pain and constipation. Will discharge from in-patient PT at this time.
[2022-06-10 11:19] LABS: Magnesium 1.9 mg/dL (1.6-2.3)
[2022-06-10 12:09] VITALS: BP 132/82; PULSE 77; RESP 16; TEMP 36.7; O2SAT 96
[2022-06-10] MEDS: MAGNESIUM HYDROXIDE 30 ML UDC 60 ML PO (12:21)
[2022-06-10] MEDS: POTASSIUM CHLORIDE 20 MEQ TAB 40 MEQ PO (12:23)
[2022-06-10] MEDS: PEG3350/SOD SULF,BICARB,CL/KCL 4,000 ML SOLUTION 2000 ML PO (12:24)
--- NOTE | 2022-06-10 15:02 | P.CONS_ITS ---
History of Present Illness Consult details Date Patient Seen: 06/10/22 Time Patient Seen: 15:02 Chief complaint: pain, constipation Narrative: 51-year-old woman who underwent a L3-4 fusion within the past 1 week readmitted for abdominal pain and constipation. CT abdomen pelvis demonstrates extensive stool no evidence of obstruction. She has been hospitalized for the past 24 hours so far has received stool softeners, bisacodyl, fiber suppository and manual disimpaction. She has passed a small amount of stool. History of multiple prior abdominal surgeries as a result of perforated appendicitis. History of small-bowel obstruction which resolved non operatively. Meds Home Medications and Allergies Home Medications Medication Instructions Recorded Confirmed Type fluticasone 500 mcg-salmeterol 50 1 ea inhalation BID 05/16/22 06/09/22 History mcg/dose blistr powdr for inhalation (Advair Diskus) thyroid (pork) 120 mg tablet ([employer] 120 mg PO BID 05/16/22 06/09/22 History Thyroid) hydrochlorothiazide 25 mg tablet 25 mg PO QAM PRN Menopause 06/01/22 06/09/22 History symptoms, swelling acetaminophen 325 mg tablet 650 mg PO Q6HR PRN Pain, Mild 06/07/22 06/09/22 Rx (1-3) #60 tabs docusate sodium 100 mg capsule 100 mg PO BID #10 caps 06/07/22 06/09/22 Rx hydroxyzine pamoate 25 mg capsule 25 mg PO Q4HR PRN Nausea And 06/07/22 06/09/22 Rx Vomiting #20 caps oxycodone 5 mg tablet 5 mg PO Q3HR PRN Pain, Moderate 06/07/22 06/09/22 Rx (4-6) 60 days #60 tabs Allergies Allergy/AdvReac Type Severity Reaction Status Date / Time No Known Drug Allergies Allergy Verified 06/06/22 08:16 Exam Vital Signs (past 8 hours): - 06/10/22 08:30 06/10/22 12:09 Temperature 98.0 F 98.0 F Pulse Rate 76 77 Respiratory Rate 16 16 Blood Pressure 139/79 132/82 Pulse Oximetry 96 96 Oxygen Flow Rate 0 0 Oxygen Delivery Method Room Air Oxygen Flow Rate 0 Narrative Exam Narrative: GENERAL: A well nourished, well developed woman appearing stated age, in no acute distress. CHEST: Rising symmetrically. No audible wheezes CARDIOVASCULAR: Warm and well perfused. Regular rate ABDOMEN: No peritonitis. Moderately distended EXTREMITIES: Normal tone and without edema. NEUROLOGIC: Moving all extremities spontaneously. No gross motor deficits. Objective Labs 06/10/22 05:55 06/10/22 05:55 Labs: Laboratory Results - last 24 hr 06/10/22 06/10/22 06/10/22 05:55 05:55 05:55 WBC 4.9 D RBC 3.67 L Hgb 11.6 L Hct 32.1 L MCV 87.4 MCH 31.5 MCHC 36.0 RDW 13.2 Plt Count 211 Neut % (Auto) 62.9 Lymph % (Auto) 23.7 L [place] % (Auto) 7.4 Eos % (Auto) 5.4 H Baso % (Auto) 0.6 Neut # (Auto) 3100 Lymph # (Auto) 1200 [place] # (Auto) 400 Eos # (Auto) 300 Baso # (Auto) 0 Sodium 136 L Potassium 3.5 Chloride 107 Carbon Dioxide 22 BUN 6 L Creatinine 0.44 L Estimated GFR > 60 BUN/Creatinine Ratio 13.6 Glucose 96 Calcium 8.2 L Magnesium 1.9 Total Bilirubin 0.5 AST 23 ALT 24 Alkaline Phosphatase 42 Total Protein 6.0 L Albumin 3.3 L Globulin 2.7 Albumin/Globulin Ratio 1.2 PFSH Medical History Asthma COVID-19 virus infection (11/2020) Hypothyroidism Sciatica Spinal stenosis Synovial cyst of lumbar spine Uterine cancer (07/2016) Surgical History History of partial hysterectomy (07/2016) Hx of abdominal surgery (09/2017) Hx of appendectomy (09/2017) Hx of dilation and curettage (05/2016) Hx of umbilical hernia repair Social History household members: spouse Tobacco & Substance Use Smoking Status: Never smoker alcohol intake: current Assessment & Plan Assessment and plan (1) Constipation: Status: Acute Assessment & Plan narrative: 51-year-old woman hospitalized for fecal impaction following recent lumbar fusion. CT abdomen pelvis reviewed personally no evidence of bowel obstruction and does demonstrate a large amount of stool within the colon. Ordered 4 L [employer] bowel prep 300 mL tap water enema 60 mL milk of magnesia If the above is not adequate will plan for therapeutic colonoscopy this weekend Time Spent With Patient Critical Care time: I spent a total of [] minutes of critical care time on this patient's care today; this time is exclusive of procedural time.
--- NOTE | 2022-06-10 16:15 | CM.DPNOTE ---
DCP Note Met w/patient and spouse to review DCP, discuss HH services and provide listening support as both reviewed the difficulties they have experienced navigating patient's recent health scares, surgeries, recovery etc Patient and spouse hopeful HH services are an option upon discharge, especially HH RN, as a bridge to a medical provider, medical oversight etc Placed call to Jesús at [facility] who explained that patient's Crown Perforator Operator provider through [facility] in [facility] [place] (patient's PCP) does not have the certification required to sign for Home Health services This STAFFING ADMINISTRATOR did not have time available to return to bedside to update patient and spouse re this info from [facility].. it would be worth discussing this referral with [facility] (?) if patient/spouse agree. [facility] does not require a PCP to start services, however, [facility] does need to review to determine eligibility Plan: discharge home w/supportive spouse and family/friends when medically cleared, close outpatient f/u recommended, HH services if available w/o a PCP (?) JW
[2022-06-10 16:45] VITALS: BP 151/89; PULSE 95; RESP 16; TEMP 36.6; O2SAT 98
[2022-06-10] MEDS: ACETAMINOPHEN 325 MG TABLET 650 MG PO (18:23)
[2022-06-10 19:57] VITALS: BP 134/83; PULSE 81; RESP 16; TEMP 36.8; O2SAT 95
--- NOTE | 2022-06-10 22:18 | PC.NURSE ---
NOC Shift Note- Tap water enema completed as ordered with no results noted. Patient tolaterated. Patient reports feeling bloated and uncomfortable.
[2022-06-10 23:51] VITALS: BP 128/80; PULSE 80; RESP 16; TEMP 36.7; O2SAT 96
[2022-06-11] VITALS (7 sets, daily range): BP systolic 120–132; BP diastolic 71–81; PULSE 69–87; RESP 15–16; TEMP 36.1–36.7; O2SAT 95–100; BMI 23.3
[2022-06-11] MEDS: ACETAMINOPHEN 325 MG TABLET 650 MG PO ×2 (00:37→08:12)
[2022-06-11] MEDS: METOCLOPRAMIDE 10 MG/2 ML INJ IV (08:12)
[2022-06-11] MEDS: LACTATED RINGERS 1,000 ML 42 ML IV (08:55)
--- NOTE | 2022-06-11 09:27 | PM.PREOP ---
Pre-operative Note Interval Note History & Physical reviewed/Exam performed by Physician: Yes Changes to H&P: No H&P completed within 30 days and has changed as indicated here:: No significant improvement with extensive bowel care measures over the past 24 hrs. Milk of Mag, Tap water enema, 4 L go lytely. Will proceed to therapeutic colonoscopy. Risks including bleeding, colonic injury need for further procedure discussed. She provides written and verbal consent to proceed. Questions have been answered.
[2022-06-11] MEDS: MINERAL OIL LIGHT TOPICAL 10 ML TOP (09:42)
--- NOTE | 2022-06-11 10:31 | DI.RAD.S_ITS ---
PROCEDURE: XR ABDOMEN 1V INDICATIONS: fecal impaction s/p colonoscopy TECHNIQUE: One view of the abdomen acquired. COMPARISON: [facility], CR, XR ABDOMEN 1V, 06/08/2022, 14:37. FINDINGS: Surgical changes and devices: C4-5 pedicular screw and fam fixation and discectomy. Bowel: Bowel gas pattern is normal. Soft tissues: No suspicious abdominal calcifications. Visualized solid organ contours appear normal in size. No significant retained stool. Air is seen throughout the small and large bowel. Bones: No suspicious bony lesions. Pedicular screw and fam fixation of C4-5. Mild leftward curvature of the lumbar spine. IMPRESSION: There is air throughout the small and large bowel. No significant retained stool. Dictated by: Gary Hendrix M.D. on 06/11/2022 at 10:12 Approved by: Gary Hendrix M.D. on 06/11/2022 at 10:15
--- NOTE | 2022-06-11 10:31 | P.OP.COLON_ITS ---
Operative Date/Time/Diagnoses Date of procedure: 06/11/22 Time of procedure: 10:32 Pre-op diagnosis: Fecal impaction Post-op diagnosis: same Procedure & Clinicians Study performed: Colonoscopy Same procedure as scheduled: Yes Indications: 51-year-old woman recent back surgery who is readmitted to the hospital for fecal impaction. Despite 4 L of GoLYTELY magnesium sulfate tap water enema she is unable to adequately empty her bowels secondary to impaction she is therefore brought to the procedure room for therapeutic colonoscopy Surgeon: Randal Carballo Procedure Notes Procedure in detail: The history and physical was performed/updated and the patient is ASA class is 2. The procedure was discussed in detail with the patient. Potential risks complications including infection, bleeding, missed diagnosis, perforation, need for surgery, and were explained. Their questions were answered and informed consent was obtained. Patient was brought to the procedure room and placed standard monitoring equipment. The patient's vital signs were monitored continuously throughout the entire procedure. Prior to starting time-out was performed. The patient was placed in the left lateral recumbent position. Procedural sedation was a dministered by anesthesia. Examination began with a thorough inspection of the perianal area there was no evidence of fissures, fistulae, external hemorrhoids or cutaneous malignancy. The colonoscopy scope was then placed into the anal canal and was advanced forward. Within the colon there was a moderate amount of liquid and some solid stool which was suctioned out. We were able to reach the ascending colon but despite multiple attempts to reposition the patient, external compression and scope stiffening I could not reach the cecum. The ileocecal valve could be observed and there was no evidence of large stool burden within the cecum. The scope was then withdrawn irrigating on the way back. At The end of the procedure the colon was grossly clear of stool. she may discharge home later today. Withdrawal time was 12 minutes. Specimen(s): none sent Impression: Constipation Post-procedure Plan for aftercare: May discharge home Disposition: Acute Care
--- NOTE | 2022-06-11 10:44 | SUR.PHASEI ---
KUB at bedside. Abdomen soft and non-distended. Denies abdominal pain , denies nausea.
--- NOTE | 2022-06-11 11:34 | P.DS_ITS ---
History of Present Illness History of Present Illness Date Patient Seen: 06/11/22 Time Patient Seen: 11:34 Chief complaint: pain, constipation Narrative: Patient notes her abdominal pain is significantly improved after her colonoscopy this morning. She is having moderate low back pain, but well managed with Tylenol, ice, breathing exercises. She is trying to avoid narcotics completely due to her severe constipation postoperatively. Her sister is at bedside. Overall she is feeling well like to be discharged home today. Discharge Providers Provider Date of admission: 06/08/22 22:26 Discharge Date: 06/11/22 Primary care physician: Beena Yusuf ND Consults: 06/08/22 22:27 Consult to Orthopedic Surgery Urgent Comment: Consulting Provider: Iván Duke Reason for consultation: admission Has provider been notified: No Consult to Physician Urgent Comment: Consulting Provider: Sparkle Santa Reason for consultation: admission Has provider been notified: Yes 06/09/22 04:27 Consult to Discharge Planning Routine Comment: Consult to Physical Therapy Evaluate & Treat Comment: spine bending/lifting twisting precautions Physician Instructions: Evaluate and Treat 06/10/22 08:44 Consult to General Surgery Routine Comment: Consulting Provider: Randal Carballo Reason for consultation: Fecal impaction s/p TLIF; h/o bowel obstruction & mult abd surgeries Has provider been notified: Yes Discharge provider: Clari Thomas PA-C Summary Hospital Course Discharge Diagnosis: -fecal impaction status post L3-[address] Gomez on 06/06/2022 Hospital Course: 51-year-old woman who underwent a L3-4 fusion within the past 1 week readmitted for abdominal pain and constipation.? CT abdomen pelvis demonstrates extensive stool no evidence of obstruction.? She has been hospitalized for the past 24 hours so far has received stool softeners, bisacodyl, fiber suppository and manual disimpaction.? She has passed a small amount of stool.? History of multiple prior abdominal surgeries as a result of perforated appendicitis.? History of small-bowel obstruction which resolved non operatively. Patient underwent a colonoscopy on 06/11/2022 Operative Date/Time/Diagnoses Date of procedure: 06/11/22 Time of procedure: 10:32 Procedure & Clinicians Study performed: Colonoscopy Same procedure as scheduled: Yes Indications: 51-year-old woman recent back surgery who is readmitted to the hospital for fecal impaction.? Despite 4 L of GoLYTELY magnesium sulfate tap water enema she is unable to adequately empty her bowels secondary to impaction she is therefore brought to the procedure room for therapeutic colonoscopy Surgeon: Randal Carballo Status at Discharge Cognitive/behavioral status at discharge: at baseline, oriented Functional status at discharge: independent ambulation Overall status at discharge: patient is progressing back to baseline Exam Vital Signs (past 8 hours): - 06/11/22 06:12 06/11/22 09:00 06/11/22 08:00 Temperature 98.1 F 97.7 F 96.9 F L Pulse Rate 77 72 87 Respiratory Rate 16 16 16 Blood Pressure 126/79 123/80 132/81 Pulse Oximetry 95 98 96 Oxygen Delivery Method Room Air 06/11/22 10:34 06/11/22 10:39 06/11/22 10:45 Temperature 97.1 F L Pulse Rate 76 74 69 Respiratory Rate 15 16 16 Blood Pressure 127/71 120/78 121/76 Pulse Oximetry 99 100 98 Oxygen Delivery Method Room Air Room Air Room Air 06/11/22 10:49 Temperature Pulse Rate 74 Respiratory Rate 16 Blood Pressure 121/75 Pulse Oximetry 97 Oxygen Delivery Method Room Air Oxygen Delivery Method Room Air Oxygen Flow Rate 0 Narrative Exam Narrative: Pleasant 51-year-old female, resting comfortably in bed, no acute distress. Bilateral lower extremities: Motor functions are grossly intact, sensation is grossly intact to light touch. Abdomen is nondistended. Objective Labs 06/10/22 05:55 06/10/22 05:55 [facility] Medical History Asthma COVID-19 virus infection (11/2020) Hypothyroidism Sciatica Spinal stenosis Synovial cyst of lumbar spine Uterine cancer (07/2016) Surgical History History of partial hysterectomy (07/2016) Hx of abdominal surgery (09/2017) Hx of appendectomy (09/2017) Hx of dilation and curettage (05/2016) Hx of umbilical hernia repair Social History household members: spouse Smoking Status: Never smoker alcohol intake: current Discharge Assessment & Plan Assessment and Plan Assessment: -fecal impaction status post L3-4 TLIF on 06/06/[address] Gomez Plan of Treatment: -continue with fiber and MiraLax for constipation/fecal impaction -maintain TLIF protocols: No bending, lifting, twisting x6 weeks. Weightbearing as tolerated -continue with multimodal pain management, avoid narcotics as much as possible due to severe constipation -DC home today Discharge Plan Discharge Plan Patient Disposition: Home Discharge orders & Medications Prescriptions: New Metamucil Fiber Singles 3.4 gram Powder In Packet 1 packet PO DAILY Qty: 30 0RF polyethylene glycol 3350 [Miralax] 17 gram/dose powder 17 g PO .1-3 times daily PRN (Reason: constipation) Qty: 119 0RF Continued hydrochlorothiazide 25 mg Tablet 25 mg PO QAM PRN (Reason: Menopause symptoms, swelling) acetaminophen 325 mg Tablet 650 mg PO Q6HR PRN (Reason: Pain, Mild (1-3)) Qty: 60 0RF docusate sodium 100 mg Capsule 100 mg PO BID Qty: 10 0RF hydroxyzine pamoate 25 mg Capsule 25 mg PO Q4HR PRN (Reason: Nausea And Vomiting) Qty: 20 0RF Rx Instructions: One tablet every 4 hours as needed for nausea or muscle spasms oxycodone 5 mg Tablet 5 mg PO Q3HR PRN (Reason: Pain, Moderate (4-6)) 60 Days Qty: 60 0RF Rx Instructions: Take 5-10 mg every 3 hours as needed for pain fluticasone propion-salmeterol [Advair Diskus] 500-50 mcg/dose blister with device 1 ea INHALATION BID Patient Comments: INHALE ONE PUFF INTO THE LUNGS TWO TIMES DAILY. thyroid (pork) [CARD HAND Thyroid] 120 mg tablet 120 mg PO BID Follow up/Referrals: Beena Yusuf ND [Primary Care Provider] - (Please check in with her primary care doctor after your colonoscopy) Iván Duke MD [Physician] - As previously scheduled (Postoperative visit in approximately 1 week) Diet/Activity/Treatments Diet: Diet as Tolerated Other treatments: Medications: -OTC Tylenol 500 mg 1 tablet every 4 hours as needed for pain/fever. Max 6 tablets per day. -tramadol 50 mg 1-2 tablets every 4 hours as needed for moderate-severe pain (narcotic pain medication). -As needed medications: -Ducolax and /or MiraLax as needed for constipation from narcotic pain medications. -Pepcid AC as needed for stomach upset. -Vistaril (hydroxyine) 25mg 1 tab every 4 hours as needed for spasms /pain/nausea. Bowel program: -daily fiber supplement -Miralax 1-3 times daily -continue with oral water intake Dressing/Wound care: -Keep dressing in place until postoperative follow-up office visit. -Okay to shower. Keep wound out of direct water stream. Can use PressNSeal plastic wrap to protect from shower stream. No soaking or submerging until all the scabs fall off (approximately 6 weeks). -Please call the office if dressing becomes wet, soiled, or saturated. Activities: -Limit bending, lifting, twisting x6 weeks. No deep bending (more than 90 degrees) or twisting at the waist. No lifting > 20 pounds. -Walk frequently. -Weight-bearing as tolerated. Use front wheeled walker, and progress to cane when safe. -Continue with home exercises as directed by your physical therapist. -Ice your incision as needed for pain/inflammation/swelling. Protect your skin w ith a folded pillowcase. -Incentive Spirometer (breathing device from hospital): 5-10xs every hour while awake for the first 1-2 weeks. Follow-up: -Follow-up with your surgeon or PA in the office in 10-14 days after surgery. -Follow-up with your surgeon 6 weeks postoperatively. Call the office if you have chest pain, shortness of breath, significant swelling that will not resolve with elevating, fever over 101?, significantly worsening pain, or are concerned you might need to go to the Emergency Room. [facility]: [phone] Skin/Wound/Dressing Care Report to your healthcare provider any signs of infection, such as:: chills, fever, night sweats, unusual drainage and unusual redness Visit Report/Discharge Packet Instructions: DI for Constipation, High-Fiber Diet, DI for Prescription Opioid Use Stand Alone Forms: Patient Portal/API, Stroke Signs & Symptoms, Colonoscopy Result: Isld Surg Discharge Data Primary Care Provider: Beena Yusuf Attending Provider: Sparkle Santa VTE Deep Vein Thrombosis/Pulmonary Embolism Present on Admission: No
--- NOTE | 2022-06-11 12:26 | CM.DPNOTE ---
Discharge Planning Note: Patient has completed colonoscopy and has discharge orders. She has declined Home Health. Her sister is here preparing her to go home. Plan: Discharge home to care of sister who will transport. Saritha Rodriguez RN/DCP
--- NOTE | 2022-06-11 12:53 | PC.NURSE ---
Pt discharged home at 1245, escorted off floor in wheelchair, accompanied by family and hospital staff. IV removed, discharge teaching reviewed including new medications, follow up appointments and worsening symptoms. Questions answered. Patient left with all belongings.
== END 2022-06-11 13:00 | disposition home or self-care (01) ==
LOC: ED 22:25 → AC 22:27
PROVIDERS: Physician Assistant Medical; Surgery; Admitting Provider Orthopaedic Surgery Foot and Ankle Surgery; Emergency Provider Emergency Medicine; PCP Naturopath; Referring Provider Emergency Medicine; Visit Provider Orthopaedic Surgery Foot and Ankle Surgery
PROC: 0DJD8ZZ Inspection of Lower Intestinal Tract, Via Natural or Artificial Opening Endoscopic (ICD-10-PCS; CPT 45378; principal; 2022-06-11 09:15)
DX: K56.41 Fecal impaction (principal); E87.6 Hypokalemia; Z20.822 Contact with and (suspected) exposure to COVID-19; Z98.1 Arthrodesis status; Z98.890 Other specified postprocedural states
CPT/HCPCS: 45378; 36415; 74018; 74177; 80053; 81001; 82550; 82553; 83605; 83735; 84145; 84484; 85025; 85610; 85730; 87040; 87635; 93005; 96361; 96372; 96374; 96375; 96376; 99232; 99285; C9803; G0378; J1170; J1650; J1885; J2405; J2704; J2765; Q9967

== ENCOUNTER → 2022-10-28 14:47 | Outpatient (CLI) | payer OTHER, SELFPAY ==
--- NOTE | 2022-10-28 15:08 | DI.DEXA.S_ITS ---
Bone Density Report Name: FAUSTINO OLMOS Age: 51 Sex: Female Ethnicity: White Date of : 1970 Indication: postmenopausal; history of glucocorticoids; Referring Provider: CROW PATEL Study: Bone densitometry was performed. Exam Date: October 28, 2022 Accession number: [id number] Bone Density: Region BMD T-score Z-score Classification AP Spine(L1, L2, L3) 0.869 -1.4 -0.6 Osteopenia Femoral Neck (Left) 1.008 1.4 2.2 Normal Total Hip (Left) 1.010 0.6 1.0 Normal Femoral Neck (Right) 0.944 0.9 1.6 Normal Total Hip (Right) 1.005 0.5 1.0 Normal Total Hip Mean 1.007 0.6 1.0 Normal World Health Organization criteria for BMD impression classify patients as: Normal (T-score at or above -1.0), Osteopenia (T-score between -1.0 and -2.5), or Osteoporosis (T-score at or below -2.5). 10-year Fracture Risk(1): Major Osteoporotic Fracture 5.2% Hip Fracture < 0.1% Reported Risk Factors: [place] (), Neck BMD=0.944, BMI=23.6, glucocorticoids (1) FRAX(R) Version 3.08. Fracture probability calculated for an untreated patient. Fracture probability may be lower if the patient has received treatment. Impression: The patient has low bone mass, based on the Total Spine T-score. The patient has risk factors, including: history of glucocorticoid therapy. Discussion: BONE DENSITY IS LOW AT ONE OR MORE SKELETAL SITES. This patient's lowest T-score is low at one or more skeletal sites. It meets the World Health Organization's (WHO) criteria for ?low bone mass? (T-score between -1.0 and -2.5). The patient's 10-year risk of fracture as calculated by FRAX is less than the threshold where pharmacological therapy is recommended by the National Osteoporosis Foundation (NOF). However, all treatment decisions require clinical judgment and consideration of individual patient factors, including patient preferences, comorbidities, previous drug use, risk factors not captured in the FRAX model (e.g., frailty, falls, vitamin D deficiency, increased bone turnover, interval significant decline in bone density) and possible under or overestimation of fracture risk by FRAX. The patient should follow a healthful lifestyle (good nutrition with adequate calcium and vitamin D, and appropriate weight-bearing exercise). Follow-Up: Consider repeating this study in 2 to 3 years to reassess this patient's status, or sooner if there is some new clinical indication. Reported by: KRISS HENSLEY M.D. on 10/28/2022 3:18:00 PM.
== END ==
PROVIDERS: Family Provider Naturopath; PCP Naturopath; Referring Provider Naturopath; Visit Provider Naturopath
DX: Z13.820 Encounter for screening for osteoporosis (principal); Z92.241 Personal history of systemic steroid therapy; Z78.0 Asymptomatic menopausal state; M85.88 Other specified disorders of bone density and structure, other site
CPT/HCPCS: 77080

== ENCOUNTER 2023-02-09 12:45 | Outpatient (RCR) | payer OTHER, SELFPAY ==
--- NOTE | 2022-08-02 17:23 | PT.OIE ---
Current Diagnoses Intervertebral disc disorders with radiculopathy, lumbar region (08/02/22) Abnormal posture (08/02/22) Weakness (08/02/22) Past Medical History (Last Reviewed 06/11/22 @ 11:37 by Clari Thomas PA-C) Asthma COVID-19 virus infection (11/2020) Hypothyroidism Sciatica Spinal stenosis Synovial cyst of lumbar spine Uterine cancer (07/2016) Past Surgical History (Last Reviewed 06/11/22 @ 11:37 by Clari Thomas PA-C) History of partial hysterectomy (07/2016) Hx of abdominal surgery (09/2017) Hx of appendectomy (09/2017) Hx of dilation and curettage (05/2016) Hx of umbilical hernia repair Visit Care Team Role Provider Type Beena Yusuf ND Family Provider Non-Staff Primary Care Provider Specialty: Naturopathy Address: [address] [place] [address], [address], [address] Email: Iván Duke MD Attending Provider Physician Referring Provider Specialty: Orthopedics Orthopedic Surgery Address: [address] [place] [address], [id number] Email: [email or web address] Physical Therapy Initial Evaluation PT-OP-A Visit Information Start: 08/01/22 17:48 Freq: Status: Active Protocol: Document 08/02/22 15:03 [facility] (Rec: 08/02/22 16:09 [facility] [id number]) Out-Patient Physical Therapy Visit Information Visit Information Visit Type Initial Evaluation Visit Start Time 15:15 Visit Stop Time 16:02 Total Visit Minutes 47 Visit Number 1/6 Number of WEEKEND ANCHOR Visits 0 PT-OP-B Current Condition Start: 08/01/22 17:48 Freq: Status: Active Protocol: Document 08/02/22 15:03 [facility] (Rec: 08/02/22 16:09 [facility] [id number]) Current Condition History of Current Condition Onset Date L3-4 TLIF 3/ Current Complaints LBP History of Current Condition Pt reports back pain started Mar 18 and she had worked out and felt sore that day and took a few days off and it didn't get beter. She hasn't worked out now since Mar. She had a cyst on the inside of her spine and they had to remove the disc in order to remove the cyst in the ant. She now had TLIF of L3-4. A spacer was placed in the spine also She had uterine CA on 2016 and it was all contained on her uterus and had that removed at the time. Her appendix ruptured 09/2017 and had appendectomy. She had to go back to the ER d/t bowel blockage and abscess. She had an umbilical hernia in 02/2018 and they just did a stich and then d/t covid didn't get fixed until 08/22 since it didn 't work. Pt reports her back used to be very flexible in ext. She felt like she had too much mobility ant and post flexiblity. 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 Pt reprots typically her workouts would be [place] and walking her dog. 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 Pt reports surgery was very painful. MD said she was healing well and plan to follow up in 2 more months. She is to cont to limit bending, lifting (greater than 10lbs) and twisting. Plan will be to possibly clear that in 2 months. Pt reports she has been walking 5 miles but said she was walking too much so she is now doing 4 miles/day. she walks slowly. Pt reports after her last hernia surgery, she had a lot more unstable in her core. Pt was limited in working out d/t 6 weeks required to rest after surgery and then had flu for 6 weeks then COVID for 6 weeks. Pt reports after surgery was re-admitted d/t severe constipation that requird colonoscopy. Prior Treatments and Tests Tried PT prior to surgery but pt notes she had LBP w/R leg pain all the way down leg Treatment Goals Patient/Caregiver Goals Get back to barre, pick something off ground, sleep, sit extended, no pain w/ donning socks & shoes PT-OP-C Subjective Start: 08/01/22 17:48 Freq: Status: Active Protocol: Document 08/02/22 15:03 [facility] (Rec: 08/02/22 16:09 [facility] [id number]) Patient Questionnaires Oswestry Low Back Index Oswestry Score 13/50 OP-PT Pain Assessment Location Lower Back Pain Location Details R lumbar area Intensity 3 Scale Used Numeric (0 - 10) Description Aching Frequency Intermittent Pain Duration goes away within sec if gets out of the position Pain Aggravating Factors Sitting,Bending Other Pain Aggravating Factors sit >20 min,laying down Other Pain Alleviating Factors change position PT-OP-D Balance Start: 08/01/22 17:48 Freq: Status: Active Protocol: Document 08/02/22 15:03 [facility] (Rec: 08/02/22 16:09 [facility] [id number]) Balance Tests Single Limb Standing Single Limb- Right >30sec w/lat r hip shear & L rot Single Limb- Left >30 sec w/lat left hip shear and R hip hike PT-OP-F Manual Assessment Start: 08/01/22 17:48 Freq: Status: Active Protocol: Document 08/02/22 15:03 [facility] (Rec: 08/02/22 16:09 [facility] [id number]) Manual Assessments Soft Tissue Assessment Soft Tissue Mobility Assessment QL & ES tight B PT-OP-G Mobility & Gait Start: 08/01/22 17:48 Freq: Status: Active Protocol: Document 08/02/22 15:03 [facility] (Rec: 08/02/22 16:09 [facility] [id number]) OP Gait Assessment Comments Gait Comments dec ant dep B; LLE occ adducts , dec post dep B PT-OP-J Posture/Palpation/Skin Start: 08/01/22 17:48 Freq: Status: Active Protocol: Document 08/02/22 15:03 [facility] (Rec: 08/02/22 16:09 [facility] [id number]) Posture Evaluation [facility] Postural Classification System [facility] Postural Classifications Posterior/Posterior Elbow Flexion Test 0 Lumbar Protective Mechanism Left AP 0 Lumbar Protective Mechanism Right AP 0 Lumbar Protective Mechanism Left PA 0 Lumbar Protective Mechanism Right PA 0 Comments Posture Comments slight ext R foot in standing; equal greater trochanter PT-OP-M Strength Start: 08/01/22 17:48 Freq: Status: Active Protocol: Document 08/02/22 15:03 [facility] (Rec: 08/02/22 16:09 [facility] [id number]) Hip Strength Hip Manual Muscle Testing Right Flexion (L2) 3+ Fair+ Extension (S1) 3+ Fair+ Abduction 4 Good External Rotation 4- Good- Internal Rotation 4- Good- Left Flexion (L2) 3+ Fair+ Extension (S1) 3+ Fair+ Abduction 4 Good Adduction 4 Good External Rotation 4 Good Internal Rotation 4 Good Comments dec core stability w/testing Knee Strength Knee Manual Muscle Testing Right Flexion (S2) 4 Good Extension (L3) 4 Good Left Flexion (S2) 5 Normal Extension (L3) 5 Normal Ankle/Foot Strength Ankle and Foot Manual Muscle Testing Right Dorsiflexion (L4) 5 Normal Plantarflexion (S1) 5 Normal Left Dorsiflexion (L4) 5 Normal Plantarflexion (S1) 5 Normal Comments 20 heel raises B PT-OP-Q Treatments Start: 08/01/22 17:48 Freq: Status: Active Protocol: Document 08/02/22 15:03 [facility] (Rec: 08/02/22 17:23 [facility] [id number]) Self-Care/Home Management Treatment Education Other Education 9 min: edu of core anatomy and muscles included in this; discussed abdominal pressure systema nd edu on how posture is improtance for this. Showed pt how to improve ribcage to pelvis alignment and demonstrated w/improved EFT how this is important for core firing. PT-OP-T Assessment and Plan Start: 08/01/22 17:48 Freq: Status: Active Protocol: Document 08/02/22 15:03 [facility] (Rec: 08/02/22 16:09 [facility] [id number]) Physical Therapy Assessment Rehab Potential Rehabilitation Potential Excellent Evaluation Complexity Number of Personal Factors/Comorbidities 3 or More Number of Body Systems Impaired 4 or More Clinical Presentation at Evaluation Evolving Impairments Impairments Activity Tolerance,Balance, Functional Activities, Functional Mobility,Gait,Pain, Posture,ROM,Soft Tissue Mobility,Strength Goals exercise Correction Goal (LTG) Pt will be able to return to [place] exercise routines w/o inc pain. LTG Duration 10/11/22 activities Impairment cannot sit >20min and pain w/ laying down Short Term Goal (STG) Pt will be able to position herself to sleep comofrtably though to night w/o inc pain. STG Duration 09/01/22 Correction Goal (LTG) Pt will be able to sit as long as needed without inc pain. LTG Duration 10/11/22 strength Short Term Goal (STG) Pt will be indep w/HEP for flexiblity, strength and posture STG Duration 09/01/22 Steel Layout Worker Goal (LTG) Pt will score at least 5/5 on all LE MMT B and at least 3/5 LPM and EFT to show improved stabiltiy to allow pt to return to her normal activities w/o pain. LTG Duration 10/12/22 JANE Impairment 13/50 Short Term Goal (STG) Pt will improve score to no greater than 7/50 to show improved functional ability STG Duration 09/01/22 Correction Goal (LTG) Pt will improve score to no greater than 2/50 to show improved functional ability LTG Duration 10/11/22 Assessment Summary Assessment Pt presents 8 wks s/p L3-4 TLIF with overall good pain control but still pain w/ bending over and w/donning shoes/socks/pants. She has R>L LE weakness and shows absent core response w/testing. She has history of multiple abdominal surgeries which likely are affecting her mobility and pain also as she likely has a lot of scar tissue along the spine ant.She has uneven iliac crests indicating SI dysfucntion is likely along w/signficiant tightness of R>L TLIF scar tissue. She is still limited in BLT until next MD appt in 2 months and would benefit from skilled PT to work on addressing core stabiltiy, balance, gait, posture and LE strength to dec pain and imprvoe pt function. Physical Therapy Plan Frequency and Duration Frequency of Treatment 2x/wk 1 wk>1x/wk Duration of treatment (weeks) 10 Plan of Care Start Date 08/02/22 Plan of Care End Date 10/11/22 Therapeutic Interventions Therapeutic Interventions Balance Training,Gait Training ,Home Exercise Program,Joint Mobilizations,Manual Therapy, Neuromuscular Re-education, Patient/Caregiver Education, Self-Care/Home Management,Soft Tissue Mobilization,Taping, Therapeutic Activities, Therapeutic Exercises Modalities Cold Pack/Ice Massage,Electric Stimulation,Ultrasound Next Visit Focus/Plan Next Note Type Treatment Note Next Visit Plan HEP: hip hinge, squat, supine abdominal series, bridge, sidesteps; Manual: hip mobs & work on sacrum and innominate mobility, ant & post scar tissue Edu on sleep postures
--- NOTE | 2022-08-02 17:23 | PT.OPPOC ---
Physical, Occupational & Speech Therapy At [facility] Current Diagnoses Intervertebral disc disorders with radiculopathy, lumbar region (08/02/22) Abnormal posture (08/02/22) Weakness (08/02/22) Visit Care Team Role Provider Type Beena Yusuf ND Family Provider Non-Staff Primary Care Provider Specialty: Naturopathy Address: [id number] [place] [address], [address], [place], [address] Email: Iván Duke MD Attending Provider Physician Referring Provider Specialty: Orthopedics Orthopedic Surgery Address: [address] [place] [address], [address] Email: [email or web address] Plan Of Care PT-OP-T Assessment and Plan Start: 08/01/22 17:48 Freq: Status: Active Protocol: Document 08/02/22 15:03 [facility] (Rec: 08/02/22 16:09 [facility] [id number]) Physical Therapy Assessment Rehab Potential Rehabilitation Potential Excellent Evaluation Complexity Number of Personal Factors/Comorbidities 3 or More Number of Body Systems Impaired 4 or More Clinical Presentation at Evaluation Evolving Impairments Impairments Activity Tolerance,Balance, Functional Activities, Functional Mobility,Gait,Pain, Posture,ROM,Soft Tissue Mobility,Strength Goals exercise Penitentiary Goal (LTG) Pt will be able to return to [place] exercise routines w/o inc pain. LTG Duration 10/11/22 activities Impairment cannot sit >20min and pain w/ laying down Short Term Goal (STG) Pt will be able to position herself to sleep comofrtably though to night w/o inc pain. STG Duration 09/01/22 Penitentiary Goal (LTG) Pt will be able to sit as long as needed without inc pain. LTG Duration 10/11/22 strength Short Term Goal (STG) Pt will be indep w/HEP for flexiblity, strength and posture STG Duration 09/01/22 Penitentiary Goal (LTG) Pt will score at least 5/5 on all LE MMT B and at least 3/5 LPM and EFT to show improved stabiltiy to allow pt to return to her normal activities w/o pain. LTG Duration 10/12/22 JANE Impairment 13/50 Short Term Goal (STG) Pt will improve score to no greater than 7/50 to show improved functional ability STG Duration 09/01/22 Penitentiary Goal (LTG) Pt will improve score to no greater than 2/50 to show improved functional ability LTG Duration 10/11/22 Assessment Summary Assessment Pt presents 8 wks s/p L3-4 TLIF with overall good pain control but still pain w/ bending over and w/donning shoes/socks/pants. She has R>L LE weakness and shows absent core response w/testing. She has history of multiple abdominal surgeries which likely are affecting her mobility and pain also as she likely has a lot of scar tissue along the spine ant.She has uneven iliac crests indicating SI dysfucntion is likely along w/signficiant tightness of R>L TLIF scar tissue. She is still limited in BLT until next MD appt in 2 months and would benefit from skilled PT to work on addressing core stabiltiy, balance, gait, posture and LE strength to dec pain and imprvoe pt function. Physical Therapy Plan Frequency and Duration Frequency of Treatment 2x/wk 1 wk>1x/wk Duration of treatment (weeks) 10 Plan of Care Start Date 08/02/22 Plan of Care End Date 10/11/22 Therapeutic Interventions Therapeutic Interventions Balance Training,Gait Training ,Home Exercise Program,Joint Mobilizations,Manual Therapy, Neuromuscular Re-education, Patient/Caregiver Education, Self-Care/Home Management,Soft Tissue Mobilization,Taping, Therapeutic Activities, Therapeutic Exercises Modalities Cold Pack/Ice Massage,Electric Stimulation,Ultrasound Next Visit Focus/Plan Next Note Type Treatment Note Next Visit Plan HEP: hip hinge, squat, supine abdominal series, bridge, sidesteps; Manual: hip mobs & work on sacrum and innominate mobility, ant & post scar tissue Edu on sleep postures Plan of Care Dates Plan of Care Start Date 08/02/22 Plan of Care End Date 10/11/22 Electronically Signed by: Precious Castaneda, PT 08/02/22 [id number] If you are in agreement with this Plan of Care, please return a signed and dated copy. I have reviewed this Plan of Care and certify that the skilled therapy services above are required to meet the patient?s needs. Physician Signature Date Printed Name and Credentials Clinical Instructor Signature Printed Name and Credentials
--- NOTE | 2022-08-04 12:50 | PT.OTN ---
Current Diagnoses Intervertebral disc disorders with radiculopathy, lumbar region (08/04/22) Abnormal posture (08/04/22) Weakness (08/04/22) Physical Therapy Treatment Note PT-OP-A Visit Information Start: 08/01/22 17:48 Freq: Status: Active Protocol: Document 08/04/22 11:36 [facility] (Rec: 08/04/22 12:49 [facility] [id number]) Out-Patient Physical Therapy Visit Information Visit Information Visit Type Treatment Note Visit Start Time 11:37 Visit Stop Time 12:22 Total Visit Minutes 45 Visit Number 2/6 Number of NATIONAL RECRUITER Visits 0 PT-OP-B Current Condition Start: 08/01/22 17:48 Freq: Status: Active Protocol: Document 08/02/22 15:03 [facility] (Rec: 08/02/22 16:09 [facility] [id number]) Current Condition History of Current Condition Onset Date L3-4 TLIF 06/06 Current Complaints LBP History of Current Condition Pt reports back pain started Mar 18 and she had worked out and felt sore that day and took a few days off and it didn't get beter. She hasn't worked out now since Mar. She had a cyst on the inside of her spine and they had to remove the disc in order to remove the cyst in the ant. She now had TLIF of L3-4. A spacer was placed in the spine also She had uterine CA on 2016 and it was all contained on her uterus and had that removed at the time. Her appendix ruptured 09/2017 and had appendectomy. She had to go back to the ER d/t bowel blockage and abscess. She had an umbilical hernia in 02/2018 and they just did a stich and then d/t covid didn't get fixed until 08/22 since it didn 't work. Pt reports her back used to be very flexible in ext. She felt like she had too much mobility ant and post flexiblity. 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 Pt reprots typically her workouts would be [place] and walking her dog. 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 Pt reports surgery was very painful. said she was healing well and plan to follow up in 2 more months. She is to cont to limit bending, lifting (greater than 10lbs) and twisting. Plan will be to possibly clear that in 2 months. Pt reports she has been walking 5 miles but said she was walking too much so she is now doing 4 miles/day. she walks slowly. Pt reports after her last hernia surgery, she had a lot more unstable in her core. Pt was limited in working out d/t 6 weeks required to rest after surgery and then had flu for 6 weeks then COVID for 6 weeks. Pt reports after surgery was re-admitted d/t severe constipation that requird colonoscopy. Prior Treatments and Tests Tried PT prior to surgery but pt notes she had LBP w/R leg pain all the way down leg Treatment Goals Patient/Caregiver Goals Get back to barre, pick something off ground, sleep, sit extended, no pain w/ donning socks & shoes PT-OP-C Subjective Start: 08/01/22 17:48 Freq: Status: Active Protocol: Document 08/04/22 11:36 [facility] (Rec: 08/04/22 12:49 [facility] [id number]) OP-PT Subjective Patient Comments Patient Comments pt reports working on her posture PT-OP-D Balance Start: 08/01/22 17:48 Freq: Status: Active Protocol: Document 08/02/22 15:03 [facility] (Rec: 08/02/22 16:09 [facility] [id number]) Balance Tests Single Limb Standing Single Limb- Right >30sec w/lat r hip shear & L rot Single Limb- Left >30 sec w/lat left hip shear and R hip hike PT-OP-F Manual Assessment Start: 08/01/22 17:48 Freq: Status: Active Protocol: Document 08/02/22 15:03 [facility] (Rec: 08/02/22 16:09 [facility] [id number]) Manual Assessments Soft Tissue Assessment Soft Tissue Mobility Assessment QL & ES tight B PT-OP-G Mobility & Gait Start: 08/01/22 17:48 Freq: Status: Active Protocol: Document 08/02/22 15:03 [facility] (Rec: 08/02/22 16:09 [facility] [id number]) OP Gait Assessment Comments Gait Comments dec ant dep B; LLE occ adducts , dec post dep B PT-OP-J Posture/Palpation/Skin Start: 08/01/22 17:48 Freq: Status: Active Protocol: Document 08/02/22 15:03 [facility] (Rec: 08/02/22 16:09 [facility] [id number]) Posture Evaluation [facility] Postural Classification System [facility] Postural Classifications Posterior/Posterior Elbow Flexion Test 0 Lumbar Protective Mechanism Left AP 0 Lumbar Protective Mechanism Right AP 0 Lumbar Protective Mechanism Left PA 0 Lumbar Protective Mechanism Right PA 0 Comments Posture Comments slight ext R foot in standing; equal greater trochanter PT-OP-M Strength Start: 08/01/22 17:48 Freq: Status: Active Protocol: Document 08/02/22 15:03 [facility] (Rec: 08/02/22 16:09 [facility] [id number]) Hip Strength Hip Manual Muscle Testing Right Flexion (L2) 3+ Fair+ Extension (S1) 3+ Fair+ Abduction 4 Good External Rotation 4- Good- Internal Rotation 4- Good- Left Flexion (L2) 3+ Fair+ Extension (S1) 3+ Fair+ Abduction 4 Good Adduction 4 Good External Rotation 4 Good Internal Rotation 4 Good Comments dec core stability w/testing Knee Strength Knee Manual Muscle Testing Right Flexion (S2) 4 Good Extension (L3) 4 Good Left Flexion (S2) 5 Normal Extension (L3) 5 Normal Ankle/Foot Strength Ankle and Foot Manual Muscle Testing Right Dorsiflexion (L4) 5 Normal Plantarflexion (S1) 5 Normal Left Dorsiflexion (L4) 5 Normal Plantarflexion (S1) 5 Normal Comments 20 heel raises B PT-OP-Q Treatments Start: 08/01/22 17:48 Freq: Status: Active Protocol: Document 08/04/22 11:36 [facility] (Rec: 08/04/22 12:49 [facility] [id number]) Therapeutic Exercises Supine Exercises bridge Side bilateral Reps/Minutes 5 sec hold x10 abdominal series Supine Exercise Name flex, diagonal, ext press, flex press Side bilateral Reps/Minutes 30 sec ea Standing Exercises sidestep Side bilateral Equipment Used [place] Reps/Minutes 10ft Comments cues for ft neutral and no lat lean squats Standing Exercise Name w/pt holding dowel Side bilateral Reps/Minutes 10 hip hinge Side bilateral Reps/Minutes 5x w.pt holding dowel x6 w/PT holding dowel Therapeutic Activity Therapeutic Activity sleep posture Comments s/l and supine sleeping posture propping w/towels and pillows x10 min-use of MARYAM training Manual Therapy Treatment Soft Tissue Mobilization scar Body Location R>L Mobilization Type Myofascial Release Intensity/Depth Superficial Body Position Sidelying PT-OP-T Assessment and Plan Start: 08/01/22 17:48 Freq: Status: Active Protocol: Document 08/04/22 11:36 [facility] (Rec: 08/04/22 12:49 [facility] [id number]) Physical Therapy Assessment Goals exercise Unarmed Security Officer Goal (LTG) Pt will be able to return to [place] exercise routines w/o inc pain. LTG Duration 10/11/22 activities Impairment cannot sit >20min and pain w/ laying down Short Term Goal (STG) Pt will be able to position herself to sleep comofrtably though to night w/o inc pain. STG Duration 09/01/22 Unarmed Security Officer Goal (LTG) Pt will be able to sit as long as needed without inc pain. LTG Duration 10/11/22 strength Short Term Goal (STG) Pt will be indep w/HEP for flexiblity, strength and posture STG Duration 09/01/22 Unarmed Security Officer Goal (LTG) Pt will score at least 5/5 on all LE MMT B and at least 3/5 LPM and EFT to show improved stabiltiy to allow pt to return to her normal activities w/o pain. LTG Duration 10/12/22 JANE Impairment 13/50 Short Term Goal (STG) Pt will improve score to no greater than 7/50 to show improved functional ability STG Duration 09/01/22 Unarmed Security Officer Goal (LTG) Pt will improve score to no greater than 2/50 to show improved functional ability LTG Duration 10/11/22 Assessment Summary Assessment Pt did well with all activities and was very receptive to learning.S he presented w/better posture today and had less lordosis and aligned ribcage over plvic floor better in standing. She has sensitivity to R scar and more restriction that did improve w/manual. Physical Therapy Plan Frequency and Duration Frequency of Treatment 2x/wk 1 wk>1x/wk Duration of treatment (weeks) 10 Plan of Care Start Date 08/02/22 Plan of Care End Date 10/11/22 Next Visit Focus/Plan Next Note Type Treatment Note Next Visit Plan Discuss further pelvic floor and start pelvic floor for abdominal stabiltiy Review HEP: hip hinge, squat, supine abdominal series, bridge, sidesteps; Manual: hip mobs & work on sacrum and innominate mobility, ant & post scar tissue
--- NOTE | 2022-08-11 16:43 | PT.OTN ---
Current Diagnoses Intervertebral disc disorders with radiculopathy, lumbar region (08/11/22) Abnormal posture (08/11/22) Weakness (08/11/22) Physical Therapy Treatment Note PT-OP-A Visit Information Start: 08/01/22 17:48 Freq: Status: Active Protocol: Document 08/11/22 09:00 [facility] (Rec: 08/11/22 16:34 [facility] [id number]) Out-Patient Physical Therapy Visit Information Visit Information Visit Type Treatment Note Visit Start Time 09:01 Visit Stop Time 09:45 Total Visit Minutes 44 Visit Number 3/6 Number of FULFILLMENT SPECIALIST Visits 0 PT-OP-B Current Condition Start: 08/01/22 17:48 Freq: Status: Active Protocol: Document 08/02/22 15:03 [facility] (Rec: 08/02/22 16:09 [facility] [id number]) Current Condition History of Current Condition Onset Date L3-4 TLIF 06/06 Current Complaints LBP History of Current Condition Pt reports back pain started Mar 18 and she had worked out and felt sore that day and took a few days off and it didn't get beter. She hasn't worked out now since Mar. She had a cyst on the inside of her spine and they had to remove the disc in order to remove the cyst in the ant. She now had TLIF of L3-4. A spacer was placed in the spine also She had uterine CA on 2016 and it was all contained on her uterus and had that removed at the time. Her appendix ruptured 09/2017 and had appendectomy. She had to go back to the ER d/t bowel blockage and abscess. She had an umbilical hernia in 02/2018 and they just did a stich and then d/t covid didn't get fixed until 08/22 since it didn 't work. Pt reports her back used to be very flexible in ext. She felt like she had too much mobility ant and post flexiblity. 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 Pt reprots typically her workouts would be [employer] and walking her dog. 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 Pt reports surgery was very painful. MD said she was healing well and plan to follow up in 2 more months. She is to cont to limit bending, lifting (greater than 10lbs) and twisting. Plan will be to possibly clear that in 2 months. Pt reports she has been walking 5 miles but said she was walking too much so she is now doing 4 miles/day. she walks slowly. Pt reports after her last hernia surgery, she had a lot more unstable in her core. Pt was limited in working out d/t 6 weeks required to rest after surgery and then had flu for 6 weeks then COVID for 6 weeks. Pt reports after surgery was re-admitted d/t severe constipation that requird colonoscopy. Prior Treatments and Tests Tried PT prior to surgery but pt notes she had LBP w/R leg pain all the way down leg Treatment Goals Patient/Caregiver Goals Get back to barre, pick something off ground, sleep, sit extended, no pain w/ donning socks & shoes PT-OP-C Subjective Start: 08/01/22 17:48 Freq: Status: Active Protocol: Document 08/11/22 09:03 [facility] (Rec: 08/11/22 09:50 [facility] [id number]) OP-PT Subjective Patient Comments Patient Comments pt notes her last stomache surgery was last august and then she got a massive flu in October and then covid after that, she feels like she didn't work out x 4 months after her last stomache surgery PT-OP-D Balance Start: 08/01/22 17:48 Freq: Status: Active Protocol: Document 08/02/22 15:03 [facility] (Rec: 08/02/22 16:09 [facility] [id number]) Balance Tests Single Limb Standing Single Limb- Right >30sec w/lat r hip shear & L rot Single Limb- Left >30 sec w/lat left hip shear and R hip hike PT-OP-F Manual Assessment Start: 08/01/22 17:48 Freq: Status: Active Protocol: Document 08/02/22 15:03 [facility] (Rec: 08/02/22 16:09 [facility] [id number]) Manual Assessments Soft Tissue Assessment Soft Tissue Mobility Assessment QL & ES tight B PT-OP-G Mobility & Gait Start: 08/01/22 17:48 Freq: Status: Active Protocol: Document 08/02/22 15:03 [facility] (Rec: 08/02/22 16:09 [facility] [id number]) OP Gait Assessment Comments Gait Comments dec ant dep B; LLE occ adducts , dec post dep B PT-OP-J Posture/Palpation/Skin Start: 08/01/22 17:48 Freq: Status: Active Protocol: Document 08/02/22 15:03 [facility] (Rec: 08/02/22 16:09 [facility] [id number]) Posture Evaluation [facility] Postural Classification System [facility] Postural Classifications Posterior/Posterior Elbow Flexion Test 0 Lumbar Protective Mechanism Left AP 0 Lumbar Protective Mechanism Right AP 0 Lumbar Protective Mechanism Left PA 0 Lumbar Protective Mechanism Right PA 0 Comments Posture Comments slight ext R foot in standing; equal greater trochanter PT-OP-M Strength Start: 08/01/22 17:48 Freq: Status: Active Protocol: Document 08/02/22 15:03 [facility] (Rec: 08/02/22 16:09 [facility] [id number]) Hip Strength Hip Manual Muscle Testing Right Flexion (L2) 3+ Fair+ Extension (S1) 3+ Fair+ Abduction 4 Good External Rotation 4- Good- Internal Rotation 4- Good- Left Flexion (L2) 3+ Fair+ Extension (S1) 3+ Fair+ Abduction 4 Good Adduction 4 Good External Rotation 4 Good Internal Rotation 4 Good Comments dec core stability w/testing Knee Strength Knee Manual Muscle Testing Right Flexion (S2) 4 Good Extension (L3) 4 Good Left Flexion (S2) 5 Normal Extension (L3) 5 Normal Ankle/Foot Strength Ankle and Foot Manual Muscle Testing Right Dorsiflexion (L4) 5 Normal Plantarflexion (S1) 5 Normal Left Dorsiflexion (L4) 5 Normal Plantarflexion (S1) 5 Normal Comments 20 heel raises B PT-OP-Q Treatments Start: 08/01/22 17:48 Freq: Status: Active Protocol: Document 08/11/22 09:03 [facility] (Rec: 08/11/22 09:50 [facility] [id number]) Therapeutic Exercises Supine Exercises diaphragmatic breathing Reps/Minutes x 5 reps Comments cues to avoid upper chest breathing TA with marches Reps/Minutes x 10 each Comments pt cues to keep pelvis stable with march Pelvic floor isolations Reps/Minutes hold x 10 seconds and relax x 10 seconds x 10 reps Comments cues to avoid upper abdominal subsitiution Standing Exercises modified down dog Reps/Minutes 2 reps Comments hands on plinth, cued hip hinge, pt noted this position felt really good active hamstring stretch Resistance bilateral Reps/Minutes x 5 reps from a squat position hamstring flossing Standing Exercise Name Active hamstring stretch Side bilateral hip hinge Side bilateral Reps/Minutes 1-2 xms no dowel used today Other Exercises quadruped TA draw in Reps/Minutes x 10 reps, cues to relax the upper abdominal wall yosef pose Reps/Minutes 1 min, on forarms with elbows bent Comments hip hinge to get to position, stretching only to tolerance Manual Therapy Treatment Soft Tissue Mobilization MFR Body Location left obliques and diaphragm release Intensity/Depth Moderate Body Position Supine scar Body Location R>L Mobilization Type Myofascial Release Intensity/Depth Superficial Body Position Sidelying PT-OP-T Assessment and Plan Start: 08/01/22 17:48 Freq: Status: Active Protocol: Document 08/11/22 09:00 [facility] (Rec: 08/11/22 16:34 [facility] [id number]) Physical Therapy Assessment Assessment Summary Assessment I started fascial work today on the diaphragm and over the lower abdominal incisions. Pt was tight fascially in the left upper quadrant of the diaphragm and right lower quadrant of the pelvis and lower abdominal fascia. She reported that with [employer] she was taught to hold her upper abdominal muscles tight. We discussed the function of the local verses global muscles and worked on upper abdominal relaxation with diaphragmatic breathing and in quadruped. She was educated on pelvic floor isloations and endurance contractions for the pelvic floor. She tolerated this well. I also started active hamstring stretch. She is doing really well with her home program. Physical Therapy Plan Frequency and Duration Frequency of Treatment 2x/wk 1 wk>1x/wk Duration of treatment (weeks) 10 Plan of Care Start Date 08/02/22 Plan of Care End Date 10/11/22 Therapeutic Interventions Therapeutic Interventions Balance Training,Gait Training ,Home Exercise Program,Joint Mobilizations,Manual Therapy, Neuromuscular Re-education, Patient/Caregiver Education, Self-Care/Home Management,Soft Tissue Mobilization,Taping, Therapeutic Activities, Therapeutic Exercises Modalities Cold Pack/Ice Massage,Electric Stimulation,Ultrasound Next Visit Focus/Plan Next Note Type Treatment Note Next Visit Plan continue progressing hip hinge , working on inner core stabilization without global muscle substitution, fascial work over the abdominal wall and diaphragm. Possible star kinesiotape over the lumbar incision.
--- NOTE | 2022-08-15 14:33 | PT.OTN ---
Current Diagnoses Intervertebral disc disorders with radiculopathy, lumbar region (08/15/22) Abnormal posture (08/15/22) Weakness (08/15/22) Physical Therapy Treatment Note PT-OP-A Visit Information Start: 08/01/22 17:48 Freq: Status: Active Protocol: Document 08/15/22 11:33 [facility] (Rec: 08/15/22 14:33 [facility] [id number]) Out-Patient Physical Therapy Visit Information Visit Information Visit Type Treatment Note Visit Start Time 11:34 Visit Stop Time 12:19 Total Visit Minutes 45 Visit Number 4/6 Number of GEOGRAPHIC INFORMATION SYSTEM SURVEYOR Visits 0 PT-OP-B Current Condition Start: 08/01/22 17:48 Freq: Status: Active Protocol: Document 08/02/22 15:03 [facility] (Rec: 08/02/22 16:09 [facility] [id number]) Current Condition History of Current Condition Onset Date L3-4 TLIF 06/06 Current Complaints LBP History of Current Condition Pt reports back pain started Mar 18 and she had worked out and felt sore that day and took a few days off and it didn't get beter. She hasn't worked out now since Mar. She had a cyst on the inside of her spine and they had to remove the disc in order to remove the cyst in the ant. She now had TLIF of L3-4. A spacer was placed in the spine also She had uterine CA on 2016 and it was all contained on her uterus and had that removed at the time. Her appendix ruptured 09/2017 and had appendectomy. She had to go back to the ER d/t bowel blockage and abscess. She had an umbilical hernia in 02/2018 and they just did a stich and then d/t covid didn't get fixed until 08/22 since it didn 't work. Pt reports her back used to be very flexible in ext. She felt like she had too much mobility ant and post flexiblity. 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 Pt reprots typically her workouts would be [place] and walking her dog. 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 Pt reports surgery was very painful. said she was healing well and plan to follow up in 2 more months. She is to cont to limit bending, lifting (greater than 10lbs) and twisting. Plan will be to possibly clear that in 2 months. Pt reports she has been walking 5 miles but said she was walking too much so she is now doing 4 miles/day. she walks slowly. Pt reports after her last hernia surgery, she had a lot more unstable in her core. Pt was limited in working out d/t 6 weeks required to rest after surgery and then had flu for 6 weeks then COVID for 6 weeks. Pt reports after surgery was re-admitted d/t severe constipation that requird colonoscopy. Prior Treatments and Tests Tried PT prior to surgery but pt notes she had LBP w/R leg pain all the way down leg Treatment Goals Patient/Caregiver Goals Get back to barre, pick something off ground, sleep, sit extended, no pain w/ donning socks & shoes PT-OP-C Subjective Start: 08/01/22 17:48 Freq: Status: Active Protocol: Document 08/15/22 11:33 [facility] (Rec: 08/15/22 14:33 [facility] [id number]) OP-PT Subjective Patient Comments Patient Comments Pt reprots she has been working on exercises last therapist gave her. She did well after last session. PT-OP-D Balance Start: 08/01/22 17:48 Freq: Status: Active Protocol: Document 08/02/22 15:03 [facility] (Rec: 08/02/22 16:09 [facility] [id number]) Balance Tests Single Limb Standing Single Limb- Right >30sec w/lat r hip shear & L rot Single Limb- Left >30 sec w/lat left hip shear and R hip hike PT-OP-F Manual Assessment Start: 08/01/22 17:48 Freq: Status: Active Protocol: Document 08/02/22 15:03 [facility] (Rec: 08/02/22 16:09 [facility] [id number]) Manual Assessments Soft Tissue Assessment Soft Tissue Mobility Assessment QL & ES tight B PT-OP-G Mobility & Gait Start: 08/01/22 17:48 Freq: Status: Active Protocol: Document 08/02/22 15:03 [facility] (Rec: 08/02/22 16:09 [facility] [id number]) OP Gait Assessment Comments Gait Comments dec ant dep B; LLE occ adducts , dec post dep B PT-OP-J Posture/Palpation/Skin Start: 08/01/22 17:48 Freq: Status: Active Protocol: Document 08/02/22 15:03 [facility] (Rec: 08/02/22 16:09 [facility] [id number]) Posture Evaluation [facility] Postural Classification System [facility] Postural Classifications Posterior/Posterior Elbow Flexion Test 0 Lumbar Protective Mechanism Left AP 0 Lumbar Protective Mechanism Right AP 0 Lumbar Protective Mechanism Left PA 0 Lumbar Protective Mechanism Right PA 0 Comments Posture Comments slight ext R foot in standing; equal greater trochanter PT-OP-M Strength Start: 08/01/22 17:48 Freq: Status: Active Protocol: Document 08/02/22 15:03 [facility] (Rec: 08/02/22 16:09 [facility] [id number]) Hip Strength Hip Manual Muscle Testing Right Flexion (L2) 3+ Fair+ Extension (S1) 3+ Fair+ Abduction 4 Good External Rotation 4- Good- Internal Rotation 4- Good- Left Flexion (L2) 3+ Fair+ Extension (S1) 3+ Fair+ Abduction 4 Good Adduction 4 Good External Rotation 4 Good Internal Rotation 4 Good Comments dec core stability w/testing Knee Strength Knee Manual Muscle Testing Right Flexion (S2) 4 Good Extension (L3) 4 Good Left Flexion (S2) 5 Normal Extension (L3) 5 Normal Ankle/Foot Strength Ankle and Foot Manual Muscle Testing Right Dorsiflexion (L4) 5 Normal Plantarflexion (S1) 5 Normal Left Dorsiflexion (L4) 5 Normal Plantarflexion (S1) 5 Normal Comments 20 heel raises B PT-OP-Q Treatments Start: 08/01/22 17:48 Freq: Status: Active Protocol: Document 08/15/22 11:33 [facility] (Rec: 08/15/22 14:33 [facility] [id number]) Therapeutic Exercises Supine Exercises diaphragmatic breathing Reps/Minutes 2x5 Comments avoiding TL ext and working on lat ribcage expansion Standing Exercises hamstring flossing Standing Exercise Name bottoms up from chair Side bilateral Reps/Minutes 4x squats Standing Exercise Name w/pt dowel on back encouraging deeper squat Side bilateral Reps/Minutes 2x12 hip hinge Side bilateral Equipment Used yard stick on back Reps/Minutes 2 Manual Therapy Treatment Soft Tissue Mobilization MFR Body Location R diaphram Intensity/Depth Moderate Body Position Supine Comments w/breathing scar Body Location R abdominal by diaphram Mobilization Type Myofascial Release Intensity/Depth Superficial Body Position Supine Neuro Re-Education Treatment Other Activities facilitation Comments individually traction to facilite LE wt acceptance B in seated w/bias to encourage abd -mult sustained holds 2. supine w/tonic spread in hooklying traction at LEs PT-OP-T Assessment and Plan Start: 08/01/22 17:48 Freq: Status: Active Protocol: Document 08/15/22 11:33 [facility] (Rec: 08/15/22 14:33 [facility] [id number]) Physical Therapy Assessment Goals exercise Fci Goal (LTG) Pt will be able to return to [place] exercise routines w/o inc pain. LTG Duration 10/11/22 activities Impairment cannot sit >20min and pain w/ laying down Short Term Goal (STG) Pt will be able to position herself to sleep comofrtably though to night w/o inc pain. STG Duration 09/01/22 Bleaching Machine Operator Goal (LTG) Pt will be able to sit as long as needed without inc pain. LTG Duration 10/11/22 strength Short Term Goal (STG) Pt will be indep w/HEP for flexiblity, strength and posture STG Duration 09/01/22 Bleaching Machine Operator Goal (LTG) Pt will score at least 5/5 on all LE MMT B and at least 3/5 LPM and EFT to show improved stabiltiy to allow pt to return to her normal activities w/o pain. LTG Duration 10/12/22 JANE Impairment 13/50 Short Term Goal (STG) Pt will improve score to no greater than 7/50 to show improved functional ability STG Duration 09/01/22 Bleaching Machine Operator Goal (LTG) Pt will improve score to no greater than 2/50 to show improved functional ability LTG Duration 10/11/22 Assessment Summary Assessment Pt had improved squat after facilitationt grabiel. She has dec overall tonic mm activation and requires work w /tonic spread to imrpove this. Improved R ribcage expansion w/manual for imrpoved diaphragmatic breathing. Physical Therapy Plan Frequency and Duration Frequency of Treatment 2x/wk 1 wk>1x/wk Duration of treatment (weeks) 10 Plan of Care Start Date 08/02/22 Plan of Care End Date 10/11/22 Next Visit Focus/Plan Next Note Type Treatment Note Next Visit Plan continue progressing squat and lunge, working on inner core stabilization without global muscle substitution, fascial work over the abdominal wall and diaphragm. Possible star kinesiotape over the lumbar incision.
--- NOTE | 2022-08-17 16:00 | PT.OTN ---
Current Diagnoses Intervertebral disc disorders with radiculopathy, lumbar region (08/17/22) Abnormal posture (08/17/22) Weakness (08/17/22) Physical Therapy Treatment Note PT-OP-A Visit Information Start: 08/01/22 17:48 Freq: Status: Active Protocol: Document 08/17/22 13:37 [facility] (Rec: 08/17/22 16:00 [facility] [id number]) Out-Patient Physical Therapy Visit Information Visit Information Visit Type Treatment Note Visit Start Time 13:35 Visit Stop Time 14:16 Total Visit Minutes 41 Visit Number 5/6 Number of ELECTRIC CAR OPERATOR Visits 0 PT-OP-B Current Condition Start: 08/01/22 17:48 Freq: Status: Active Protocol: Document 08/02/22 15:03 [facility] (Rec: 08/02/22 16:09 [facility] [id number]) Current Condition History of Current Condition Onset Date L3-4 TLIF 06/06 Current Complaints LBP History of Current Condition Pt reports back pain started Mar 18 and she had worked out and felt sore that day and took a few days off and it didn't get beter. She hasn't worked out now since Mar. She had a cyst on the inside of her spine and they had to remove the disc in order to remove the cyst in the ant. She now had TLIF of L3-4. A spacer was placed in the spine also She had uterine CA on 2016 and it was all contained on her uterus and had that removed at the time. Her appendix ruptured 09/2017 and had appendectomy. She had to go back to the ER d/t bowel blockage and abscess. She had an umbilical hernia in 02/2018 and they just did a stich and then d/t covid didn't get fixed until 08/22 since it didn 't work. Pt reports her back used to be very flexible in ext. She felt like she had too much mobility ant and post flexiblity. 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 Pt reprots typically her workouts would be [place] and walking her dog. 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 Pt reports surgery was very painful. said she was healing well and plan to follow up in 2 more months. She is to cont to limit bending, lifting (greater than 10lbs) and twisting. Plan will be to possibly clear that in 2 months. Pt reports she has been walking 5 miles but said she was walking too much so she is now doing 4 miles/day. she walks slowly. Pt reports after her last hernia surgery, she had a lot more unstable in her core. Pt was limited in working out d/t 6 weeks required to rest after surgery and then had flu for 6 weeks then COVID for 6 weeks. Pt reports after surgery was re-admitted d/t severe constipation that requird colonoscopy. Prior Treatments and Tests Tried PT prior to surgery but pt notes she had LBP w/R leg pain all the way down leg Treatment Goals Patient/Caregiver Goals Get back to barre, pick something off ground, sleep, sit extended, no pain w/ donning socks & shoes PT-OP-C Subjective Start: 08/01/22 17:48 Freq: Status: Active Protocol: Document 08/17/22 13:37 [facility] (Rec: 08/17/22 16:00 [facility] [id number]) OP-PT Subjective Patient Comments Patient Comments Pt reports back is a bit sore today. had told her it would be sore for these next couple weeks. She feels like her quads are so weak. PT-OP-D Balance Start: 08/01/22 17:48 Freq: Status: Active Protocol: Document 08/02/22 15:03 [facility] (Rec: 08/02/22 16:09 [facility] [id number]) Balance Tests Single Limb Standing Single Limb- Right >30sec w/lat r hip shear & L rot Single Limb- Left >30 sec w/lat left hip shear and R hip hike PT-OP-F Manual Assessment Start: 08/01/22 17:48 Freq: Status: Active Protocol: Document 08/02/22 15:03 [facility] (Rec: 08/02/22 16:09 [facility] [id number]) Manual Assessments Soft Tissue Assessment Soft Tissue Mobility Assessment QL & ES tight B PT-OP-G Mobility & Gait Start: 08/01/22 17:48 Freq: Status: Active Protocol: Document 08/02/22 15:03 [facility] (Rec: 08/02/22 16:09 [facility] [id number]) OP Gait Assessment Comments Gait Comments dec ant dep B; LLE occ adducts , dec post dep B PT-OP-J Posture/Palpation/Skin Start: 08/01/22 17:48 Freq: Status: Active Protocol: Document 08/02/22 15:03 [facility] (Rec: 08/02/22 16:09 [facility] [id number]) Posture Evaluation [facility] Postural Classification System [facility] Postural Classifications Posterior/Posterior Elbow Flexion Test 0 Lumbar Protective Mechanism Left AP 0 Lumbar Protective Mechanism Right AP 0 Lumbar Protective Mechanism Left PA 0 Lumbar Protective Mechanism Right PA 0 Comments Posture Comments slight ext R foot in standing; equal greater trochanter PT-OP-M Strength Start: 08/01/22 17:48 Freq: Status: Active Protocol: Document 08/02/22 15:03 [facility] (Rec: 08/02/22 16:09 [facility] [id number]) Hip Strength Hip Manual Muscle Testing Right Flexion (L2) 3+ Fair+ Extension (S1) 3+ Fair+ Abduction 4 Good External Rotation 4- Good- Internal Rotation 4- Good- Left Flexion (L2) 3+ Fair+ Extension (S1) 3+ Fair+ Abduction 4 Good Adduction 4 Good External Rotation 4 Good Internal Rotation 4 Good Comments dec core stability w/testing Knee Strength Knee Manual Muscle Testing Right Flexion (S2) 4 Good Extension (L3) 4 Good Left Flexion (S2) 5 Normal Extension (L3) 5 Normal Ankle/Foot Strength Ankle and Foot Manual Muscle Testing Right Dorsiflexion (L4) 5 Normal Plantarflexion (S1) 5 Normal Left Dorsiflexion (L4) 5 Normal Plantarflexion (S1) 5 Normal Comments 20 heel raises B PT-OP-Q Treatments Start: 08/01/22 17:48 Freq: Status: Active Protocol: Document 08/17/22 13:37 [facility] (Rec: 08/17/22 16:00 [facility] [id number]) Therapeutic Exercises Standing Exercises wall squat Standing Exercise Name wall roll up w/squat down partial and hold Side bilateral Reps/Minutes 5 min-inc time to get posture and no back ext w/stand up Comments progressively inc range squats Standing Exercise Name over mat Side bilateral Reps/Minutes 8 Comments cues to descend slower and neutral spine Manual Therapy Treatment Soft Tissue Mobilization hip flexor Body Location R Mobilization Type Sustained Pressure Intensity/Depth Moderate Comments w/heel sldie uner inguinal ligament Joint Mobilizations innominate Joint R caudal FM; B ER FM Body Position Prone hips Joint B ER hip on axis FM Body Position Prone Neuro Re-Education Treatment Other Activities facilitation Comments traction and approximation through LEs in hooklying w/ rhythmic stabilization x6 min 2. diagonal isometric DL prolonged holds B x5 min PT-OP-T Assessment and Plan Start: 08/01/22 17:48 Freq: Status: Active Protocol: Document 08/17/22 13:37 [facility] (Rec: 08/17/22 16:00 [facility] [id number]) Physical Therapy Assessment Goals exercise Detention Goal (LTG) Pt will be able to return to [place] exercise routines w/o inc pain. LTG Duration 10/11/22 activities Impairment cannot sit >20min and pain w/ laying down Short Term Goal (STG) Pt will be able to position herself to sleep comofrtably though to night w/o inc pain. STG Duration 09/01/22 Detention Goal (LTG) Pt will be able to sit as long as needed without inc pain. LTG Duration 10/11/22 strength Short Term Goal (STG) Pt will be indep w/HEP for flexiblity, strength and posture STG Duration 09/01/22 Activity Manager Goal (LTG) Pt will score at least 5/5 on all LE MMT B and at least 3/5 LPM and EFT to show improved stabiltiy to allow pt to return to her normal activities w/o pain. LTG Duration 10/12/22 JANE Impairment 13/50 Short Term Goal (STG) Pt will improve score to no greater than 7/50 to show improved functional ability STG Duration 09/01/22 Detention Goal (LTG) Pt will improve score to no greater than 2/50 to show improved functional ability LTG Duration 10/11/22 Assessment Summary Assessment Pt had imrpoved core activation w/manual facilitation and imrpoved hip ER after manual treatment.S he is very weak in her quads and struggled to do partial wall sits while keeping back on wall. told she could start w/6 min of barre every other day avoiding BLT activties. Physical Therapy Plan Frequency and Duration Frequency of Treatment 2x/wk 1 wk>1x/wk Duration of treatment (weeks) 10 Plan of Care Start Date 08/02/22 Plan of Care End Date 10/11/22 Next Visit Focus/Plan Next Note Type Treatment Note Next Visit Plan continue progressing squat and lunge, working on inner core stabilization without global muscle substitution, fascial work over the abdominal wall and diaphragm. Possible star kinesiotape over the lumbar incision.
--- NOTE | 2022-08-23 14:05 | PT.OTN ---
Current Diagnoses Intervertebral disc disorders with radiculopathy, lumbar region (08/23/22) Abnormal posture (08/23/22) Weakness (08/23/22) Physical Therapy Treatment Note PT-OP-A Visit Information Start: 08/01/22 17:48 Freq: Status: Active Protocol: Document 08/23/22 12:49 [facility] (Rec: 08/23/22 14:05 [facility] [id number]) Out-Patient Physical Therapy Visit Information Visit Information Visit Type Progress Note Visit Start Time 12:45 Visit Stop Time 13:41 Total Visit Minutes 56 Visit Number 6/ Number of BUSSER Visits 0 PT-OP-B Current Condition Start: 08/01/22 17:48 Freq: Status: Active Protocol: Document 08/02/22 15:03 [facility] (Rec: 08/02/22 16:09 [facility] [id number]) Current Condition History of Current Condition Onset Date L3-4 TLIF 06/06 Current Complaints LBP History of Current Condition Pt reports back pain started Mar 18 and she had worked out and felt sore that day and took a few days off and it didn't get beter. She hasn't worked out now since Mar. She had a cyst on the inside of her spine and they had to remove the disc in order to remove the cyst in the ant. She now had TLIF of L3-4. A spacer was placed in the spine also She had uterine CA on 2016 and it was all contained on her uterus and had that removed at the time. Her appendix ruptured 09/2017 and had appendectomy. She had to go back to the ER d/t bowel blockage and abscess. She had an umbilical hernia in 02/2018 and they just did a stich and then d/t covid didn't get fixed until 08/22 since it didn 't work. Pt reports her back used to be very flexible in ext. She felt like she had too much mobility ant and post flexiblity. 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 Pt reprots typically her workouts would be [place] and walking her dog. 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 Pt reports surgery was very painful. said she was healing well and plan to follow up in 2 more months. She is to cont to limit bending, lifting (greater than 10lbs) and twisting. Plan will be to possibly clear that in 2 months. Pt reports she has been walking 5 miles but said she was walking too much so she is now doing 4 miles/day. she walks slowly. Pt reports after her last hernia surgery, she had a lot more unstable in her core. Pt was limited in working out d/t 6 weeks required to rest after surgery and then had flu for 6 weeks then COVID for 6 weeks. Pt reports after surgery was re-admitted d/t severe constipation that requird colonoscopy. Prior Treatments and Tests Tried PT prior to surgery but pt notes she had LBP w/R leg pain all the way down leg Treatment Goals Patient/Caregiver Goals Get back to barre, pick something off ground, sleep, sit extended, no pain w/ donning socks & shoes PT-OP-C Subjective Start: 08/01/22 17:48 Freq: Status: Active Protocol: Document 08/23/22 12:49 [facility] (Rec: 08/23/22 14:05 [facility] [id number]) OP-PT Subjective Patient Comments Patient Comments Pt was able to try the 6 min of squat barre exercises w/o inc pain. She feels tight in all her soft tissue of back. reports she still has a lot of issue sitting especially ground sitting. Patient Reported Progress Improving PT-OP-D Balance Start: 08/01/22 17:48 Freq: Status: Active Protocol: Document 08/02/22 15:03 [facility] (Rec: 08/02/22 16:09 [facility] [id number]) Balance Tests Single Limb Standing Single Limb- Right >30sec w/lat r hip shear & L rot Single Limb- Left >30 sec w/lat left hip shear and R hip hike PT-OP-F Manual Assessment Start: 08/01/22 17:48 Freq: Status: Active Protocol: Document 08/02/22 15:03 [facility] (Rec: 08/02/22 16:09 [facility] [id number]) Manual Assessments Soft Tissue Assessment Soft Tissue Mobility Assessment QL & ES tight B PT-OP-G Mobility & Gait Start: 08/01/22 17:48 Freq: Status: Active Protocol: Document 08/02/22 15:03 [facility] (Rec: 08/02/22 16:09 [facility] [id number]) OP Gait Assessment Comments Gait Comments dec ant dep B; LLE occ adducts , dec post dep B PT-OP-J Posture/Palpation/Skin Start: 08/01/22 17:48 Freq: Status: Active Protocol: Document 08/23/22 12:49 [facility] (Rec: 08/23/22 14:05 [facility] [id number]) Posture Evaluation [facility] Postural Classification System [facility] Postural Classifications Vertical/Posterior Elbow Flexion Test 3 Lumbar Protective Mechanism Left AP 0 Lumbar Protective Mechanism Right AP 1 Lumbar Protective Mechanism Left PA 1 Lumbar Protective Mechanism Right PA 1 PT-OP-M Strength Start: 08/01/22 17:48 Freq: Status: Active Protocol: Document 08/23/22 12:49 [facility] (Rec: 08/23/22 14:05 [facility] [id number]) Hip Strength Hip Manual Muscle Testing Right Flexion (L2) 4 Good Extension (S1) 3+ Fair+ Abduction 4+ Good+ Adduction 5 Normal External Rotation 4- Good- Internal Rotation 5 Normal Comments pain in back w/hp ext and ER B Left Flexion (L2) 4 Good Extension (S1) 3+ Fair+ Abduction 4+ Good+ Adduction 5 Normal External Rotation 4 Good Internal Rotation 5 Normal Comments dec core stability w/testing- pain w/ER Knee Strength Knee Manual Muscle Testing Right Flexion (S2) 5 Normal Extension (L3) 5 Normal Left Flexion (S2) 5 Normal Extension (L3) 5 Normal Ankle/Foot Strength Ankle and Foot Manual Muscle Testing Right Dorsiflexion (L4) 5 Normal Plantarflexion (S1) 5 Normal Left Dorsiflexion (L4) 5 Normal Plantarflexion (S1) 5 Normal Comments 20 heel raises B PT-OP-Q Treatments Start: 08/01/22 17:48 Freq: Status: Active Protocol: Document 08/23/22 12:49 [facility] (Rec: 08/23/22 14:05 [facility] [id number]) Therapeutic Exercises Supine Exercises TA with marches Supine Exercise Name TA w/heel slide hovering over mat Side bilateral Reps/Minutes 8 Comments min cues for back Standing Exercises SL Standing Exercise Name in mirror w/june to work on glute activation Side bilateral Other Exercises quadruped TA draw in Other Exercise Name w/alt hip ext Side bilateral Reps/Minutes 10sec x10 Comments working on neutral spine position and no lat wt shift Manual Therapy Treatment Soft Tissue Mobilization MFR Body Location thoracolumbar spine Intensity/Depth Superficial Body Position Prone Comments w/breathing superficial tissue work 2. STM along bony contors of spine layer 2-3 scar Body Location spine Mobilization Type Myofascial Release Intensity/Depth Superficial Body Position Prone Self-Care/Home Management Treatment Education Other Education 10min: edu re: how coccyx affects dura, pelvic floor and may be contributing to her dec ability to sit along w/ pain in sitting. Edu to pt re: improtance of slow proression back to barre and cleared her to start some isometric standing glute work as long as she does not inc pain w/it and no more than 10 min a day. Edu re: how it will take her body time to combat athrophy that started since her first surgery, but should cont to see gradual progression. PT-OP-T Assessment and Plan Start: 08/01/22 17:48 Freq: Status: Active Protocol: Document 08/23/22 12:49 [facility] (Rec: 08/23/22 14:05 [facility] [id number]) Physical Therapy Assessment Goals exercise Glove Tagger Goal (LTG) Pt will be able to return to [place] exercise routines w/o inc pain. 08/23-started 6 min and felt ok LTG Duration 10/11/22 activities Impairment cannot sit >20min and pain w/ laying down Short Term Goal (STG) Pt will be able to position herself to sleep comofrtably though to night w/o inc pain. 08/23-dec frequency of waking up through night STG Duration 09/01/22 Glove Tagger Goal (LTG) Pt will be able to sit as long as needed without inc pain. 08/23-still very limited; no change LTG Duration 10/11/22 strength Short Term Goal (STG) Pt will be indep w/HEP for flexiblity, strength and posture 08/23-advancing as able STG Duration 09/01/22 Glove Tagger Goal (LTG) Pt will score at least 5/5 on all LE MMT B and at least 3/5 LPM and EFT to show improved stabiltiy to allow pt to return to her normal activities w/o pain. 08/23improved LTG Duration 10/12/22 JANE Impairment 13/50 Short Term Goal (STG) Pt will improve score to no greater than 7/50 to show improved functional ability STG Duration 09/01/22 Glove Tagger Goal (LTG) Pt will improve score to no greater than 2/50 to show improved functional ability LTG Duration 10/11/22 Assessment Summary Assessment Pt is making excellent progress w/PT and cont to advance w/her stability exercises and increase her functional activities.She is still limited by surgeon w/ bending, lifting and twisting and does still have dec core engagmetn but is improving. She has improved her posture significantly, but is still not back to work on at this time. She would benefit from cont PT to work on her functional mobility and dec her pain to return her back to work and being able to sit extended along w/do ADLs w/ less pain Physical Therapy Plan Frequency and Duration Frequency of Treatment 2x/wk 1 wk>1x/wk Duration of treatment (weeks) 10 Plan of Care Start Date 08/02/22 Plan of Care End Date 10/11/22 Therapeutic Interventions Therapeutic Interventions Balance Training,Gait Training ,Home Exercise Program,Joint Mobilizations,Manual Therapy, Neuromuscular Re-education, Patient/Caregiver Education, Self-Care/Home Management,Soft Tissue Mobilization,Taping, Therapeutic Activities, Therapeutic Exercises Modalities Cold Pack/Ice Massage,Electric Stimulation,Ultrasound Next Visit Focus/Plan Next Note Type Treatment Note Next Visit Plan continue progressing squat and lunge, visceral mob, coccyx mob, working on inner core stabilization without global muscle substitution, fascial work over the abdominal wall and diaphragm. Possible star kinesiotape over the lumbar incision.
--- NOTE | 2022-09-06 18:24 | PT.OTN ---
Current Diagnoses Intervertebral disc disorders with radiculopathy, lumbar region (09/06/22) Abnormal posture (09/06/22) Weakness (09/06/22) Physical Therapy Treatment Note PT-OP-A Visit Information Start: 08/01/22 17:48 Freq: Status: Active Protocol: Document 09/06/22 13:31 [facility] (Rec: 09/06/22 18:24 [facility] [id number]) Out-Patient Physical Therapy Visit Information Visit Information Visit Type Treatment Note Visit Start Time 13:31 Visit Stop Time 14:15 Total Visit Minutes 44 Visit Number 10/18 Number of AIR BRAKE RIGGER Visits 0 PT-OP-B Current Condition Start: 08/01/22 17:48 Freq: Status: Active Protocol: Document 08/02/22 15:03 [facility] (Rec: 08/02/22 16:09 [facility] [id number]) Current Condition History of Current Condition Onset Date L3-4 TLIF 06/06 Current Complaints LBP History of Current Condition Pt reports back pain started Mar 18 and she had worked out and felt sore that day and took a few days off and it didn't get beter. She hasn't worked out now since Mar. She had a cyst on the inside of her spine and they had to remove the disc in order to remove the cyst in the ant. She now had TLIF of L3-4. A spacer was placed in the spine also She had uterine CA on 2016 and it was all contained on her uterus and had that removed at the time. Her appendix ruptured 09/2017 and had appendectomy. She had to go back to the ER d/t bowel blockage and abscess. She had an umbilical hernia in 02/2018 and they just did a stich and then d/t covid didn't get fixed until 08/22 since it didn 't work. Pt reports her back used to be very flexible in ext. She felt like she had too much mobility ant and post flexiblity. 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 Pt reprots typically her workouts would be [place] and walking her dog. 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 Pt reports surgery was very painful. said she was healing well and plan to follow up in 2 more months. She is to cont to limit bending, lifting (greater than 10lbs) and twisting. Plan will be to possibly clear that in 2 months. Pt reports she has been walking 5 miles but said she was walking too much so she is now doing 4 miles/day. she walks slowly. Pt reports after her last hernia surgery, she had a lot more unstable in her core. Pt was limited in working out d/t 6 weeks required to rest after surgery and then had flu for 6 weeks then COVID for 6 weeks. Pt reports after surgery was re-admitted d/t severe constipation that requird colonoscopy. Prior Treatments and Tests Tried PT prior to surgery but pt notes she had LBP w/R leg pain all the way down leg Treatment Goals Patient/Caregiver Goals Get back to barre, pick something off ground, sleep, sit extended, no pain w/ donning socks & shoes PT-OP-C Subjective Start: 08/01/22 17:48 Freq: Status: Active Protocol: Document 09/06/22 13:31 [facility] (Rec: 09/06/22 18:24 [facility] [id number]) OP-PT Subjective Patient Comments Patient Comments Pt notes LB being sore in general. she can do 40 min of gentle barre recently w/o inc pain. keepign neutral spine PT-OP-D Balance Start: 08/01/22 17:48 Freq: Status: Active Protocol: Document 08/02/22 15:03 [facility] (Rec: 08/02/22 16:09 [facility] [id number]) Balance Tests Single Limb Standing Single Limb- Right >30sec w/lat r hip shear & L rot Single Limb- Left >30 sec w/lat left hip shear and R hip hike PT-OP-F Manual Assessment Start: 08/01/22 17:48 Freq: Status: Active Protocol: Document 08/02/22 15:03 [facility] (Rec: 08/02/22 16:09 [facility] [id number]) Manual Assessments Soft Tissue Assessment Soft Tissue Mobility Assessment QL & ES tight B PT-OP-G Mobility & Gait Start: 08/01/22 17:48 Freq: Status: Active Protocol: Document 08/02/22 15:03 [facility] (Rec: 08/02/22 16:09 [facility] [id number]) OP Gait Assessment Comments Gait Comments dec ant dep B; LLE occ adducts , dec post dep B PT-OP-J Posture/Palpation/Skin Start: 08/01/22 17:48 Freq: Status: Active Protocol: Document 08/23/22 12:49 [facility] (Rec: 08/23/22 14:05 [facility] [id number]) Posture Evaluation [facility] Postural Classification System [facility] Postural Classifications Vertical/Posterior Elbow Flexion Test 3 Lumbar Protective Mechanism Left AP 0 Lumbar Protective Mechanism Right AP 1 Lumbar Protective Mechanism Left PA 1 Lumbar Protective Mechanism Right PA 1 PT-OP-M Strength Start: 08/01/22 17:48 Freq: Status: Active Protocol: Document 08/23/22 12:49 [facility] (Rec: 08/23/22 14:05 [facility] [id number]) Hip Strength Hip Manual Muscle Testing Right Flexion (L2) 4 Good Extension (S1) 3+ Fair+ Abduction 4+ Good+ Adduction 5 Normal External Rotation 4- Good- Internal Rotation 5 Normal Comments pain in back w/hp ext and ER B Left Flexion (L2) 4 Good Extension (S1) 3+ Fair+ Abduction 4+ Good+ Adduction 5 Normal External Rotation 4 Good Internal Rotation 5 Normal Comments dec core stability w/testing- pain w/ER Knee Strength Knee Manual Muscle Testing Right Flexion (S2) 5 Normal Extension (L3) 5 Normal Left Flexion (S2) 5 Normal Extension (L3) 5 Normal Ankle/Foot Strength Ankle and Foot Manual Muscle Testing Right Dorsiflexion (L4) 5 Normal Plantarflexion (S1) 5 Normal Left Dorsiflexion (L4) 5 Normal Plantarflexion (S1) 5 Normal Comments 20 heel raises B PT-OP-Q Treatments Start: 08/01/22 17:48 Freq: Status: Active Protocol: Document 09/06/22 13:31 [facility] (Rec: 09/06/22 18:24 [facility] [id number]) Manual Therapy Treatment Soft Tissue Mobilization abdomen Body Location R>L Comments multi layers mostly R to L superior aspec of abdomen and around umbilicus hip flexor Body Location R Mobilization Type Sustained Pressure Intensity/Depth Moderate Comments w/heel sldie uner inguinal ligament scar Body Location spine Mobilization Type Myofascial Release Intensity/Depth Superficial Body Position Prone Joint Mobilizations innominate Joint R caudal FM; B ER FM Body Position Prone hips Joint B ER hip on axis FM Body Position Prone Comments manual facilitation at end range PT-OP-T Assessment and Plan Start: 08/01/22 17:48 Freq: Status: Active Protocol: Document 09/06/22 13:31 [facility] (Rec: 09/06/22 18:24 [facility] [id number]) Physical Therapy Assessment Goals exercise Hair Specialist Goal (LTG) Pt will be able to return to [place] exercise routines w/o inc pain. 08/23-started 6 min and felt ok LTG Duration 10/11/22 activities Impairment cannot sit >20min and pain w/ laying down Short Term Goal (STG) Pt will be able to position herself to sleep comofrtably though to night w/o inc pain. 08/23-dec frequency of waking up through night STG Duration 09/01/22 Halfway Goal (LTG) Pt will be able to sit as long as needed without inc pain. 08/23-still very limited; no change LTG Duration 10/11/22 strength Short Term Goal (STG) Pt will be indep w/HEP for flexiblity, strength and posture 08/23-advancing as able STG Duration 09/01/22 Hair Specialist Goal (LTG) Pt will score at least 5/5 on all LE MMT B and at least 3/5 LPM and EFT to show improved stabiltiy to allow pt to return to her normal activities w/o pain. 08/23improved LTG Duration 10/12/22 JANE Impairment 13/50 Short Term Goal (STG) Pt will improve score to no greater than 7/50 to show improved functional ability STG Duration 09/01/22 Hair Specialist Goal (LTG) Pt will improve score to no greater than 2/50 to show improved functional ability LTG Duration 10/11/22 Assessment Summary Assessment Pt reports less back soreness after manul.s he cont tohave lack of abdomenal mobility which will impair back mobility as she is cleared for further ROM Physical Therapy Plan Frequency and Duration Frequency of Treatment 2x/wk 1 wk>1x/wk Duration of treatment (weeks) 10 Plan of Care Start Date 08/02/22 Plan of Care End Date 10/11/22 Next Visit Focus/Plan Next Note Type Treatment Note Next Visit Plan continue progressing squat and lunge, visceral mob, coccyx mob, working on inner core stabilization without global muscle substitution, fascial work over the abdominal wall and diaphragm. Possible star kinesiotape over the lumbar incision.
--- NOTE | 2022-09-15 14:04 | PT.OTN ---
Current Diagnoses Intervertebral disc disorders with radiculopathy, lumbar region (09/15/22) Abnormal posture (09/15/22) Weakness (09/15/22) Physical Therapy Treatment Note PT-OP-A Visit Information Start: 08/01/22 17:48 Freq: Status: Active Protocol: Document 09/15/22 13:45 [facility] (Rec: 09/15/22 14:03 [facility] [id number]) Out-Patient Physical Therapy Visit Information Visit Information Visit Type Treatment Note Visit Start Time 12:46 Visit Stop Time 13:31 Total Visit Minutes 45 Visit Number 8/18 Number of PHYSICIAN RELATIONS SPECIALIST Visits 0 PT-OP-B Current Condition Start: 08/01/22 17:48 Freq: Status: Active Protocol: Document 08/02/22 15:03 [facility] (Rec: 08/02/22 16:09 [facility] [id number]) Current Condition History of Current Condition Onset Date L3-4 TLIF 06/06 Current Complaints LBP History of Current Condition Pt reports back pain started Mar 18 and she had worked out and felt sore that day and took a few days off and it didn't get beter. She hasn't worked out now since Mar. She had a cyst on the inside of her spine and they had to remove the disc in order to remove the cyst in the ant. She now had TLIF of L3-4. A spacer was placed in the spine also She had uterine CA on 2016 and it was all contained on her uterus and had that removed at the time. Her appendix ruptured 09/2017 and had appendectomy. She had to go back to the ER d/t bowel blockage and abscess. She had an umbilical hernia in 02/2018 and they just did a stich and then d/t covid didn't get fixed until 08/22 since it didn 't work. Pt reports her back used to be very flexible in ext. She felt like she had too much mobility ant and post flexiblity. 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 Pt reprots typically her workouts would be [place] and walking her dog. 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 Pt reports surgery was very painful. said she was healing well and plan to follow up in 2 more months. She is to cont to limit bending, lifting (greater than 10lbs) and twisting. Plan will be to possibly clear that in 2 months. Pt reports she has been walking 5 miles but said she was walking too much so she is now doing 4 miles/day. she walks slowly. Pt reports after her last hernia surgery, she had a lot more unstable in her core. Pt was limited in working out d/t 6 weeks required to rest after surgery and then had flu for 6 weeks then COVID for 6 weeks. Pt reports after surgery was re-admitted d/t severe constipation that requird colonoscopy. Prior Treatments and Tests Tried PT prior to surgery but pt notes she had LBP w/R leg pain all the way down leg Treatment Goals Patient/Caregiver Goals Get back to barre, pick something off ground, sleep, sit extended, no pain w/ donning socks & shoes PT-OP-C Subjective Start: 08/01/22 17:48 Freq: Status: Active Protocol: Document 09/15/22 13:45 [facility] (Rec: 09/15/22 14:03 [facility] [id number]) OP-PT Subjective Patient Comments Patient Comments Pt reports she felt much better after last treatment. She still has difficulty with vacuuming. PT-OP-D Balance Start: 08/01/22 17:48 Freq: Status: Active Protocol: Document 08/02/22 15:03 [facility] (Rec: 08/02/22 16:09 [facility] [id number]) Balance Tests Single Limb Standing Single Limb- Right >30sec w/lat r hip shear & L rot Single Limb- Left >30 sec w/lat left hip shear and R hip hike PT-OP-F Manual Assessment Start: 08/01/22 17:48 Freq: Status: Active Protocol: Document 08/02/22 15:03 [facility] (Rec: 08/02/22 16:09 [facility] [id number]) Manual Assessments Soft Tissue Assessment Soft Tissue Mobility Assessment QL & ES tight B PT-OP-G Mobility & Gait Start: 08/01/22 17:48 Freq: Status: Active Protocol: Document 08/02/22 15:03 [facility] (Rec: 08/02/22 16:09 [facility] [id number]) OP Gait Assessment Comments Gait Comments dec ant dep B; LLE occ adducts , dec post dep B PT-OP-J Posture/Palpation/Skin Start: 08/01/22 17:48 Freq: Status: Active Protocol: Document 08/23/22 12:49 [facility] (Rec: 08/23/22 14:05 [facility] [id number]) Posture Evaluation [facility] Postural Classification System [facility] Postural Classifications Vertical/Posterior Elbow Flexion Test 3 Lumbar Protective Mechanism Left AP 0 Lumbar Protective Mechanism Right AP 1 Lumbar Protective Mechanism Left PA 1 Lumbar Protective Mechanism Right PA 1 PT-OP-M Strength Start: 08/01/22 17:48 Freq: Status: Active Protocol: Document 08/23/22 12:49 [facility] (Rec: 08/23/22 14:05 [facility] [id number]) Hip Strength Hip Manual Muscle Testing Right Flexion (L2) 4 Good Extension (S1) 3+ Fair+ Abduction 4+ Good+ Adduction 5 Normal External Rotation 4- Good- Internal Rotation 5 Normal Comments pain in back w/hp ext and ER B Left Flexion (L2) 4 Good Extension (S1) 3+ Fair+ Abduction 4+ Good+ Adduction 5 Normal External Rotation 4 Good Internal Rotation 5 Normal Comments dec core stability w/testing- pain w/ER Knee Strength Knee Manual Muscle Testing Right Flexion (S2) 5 Normal Extension (L3) 5 Normal Left Flexion (S2) 5 Normal Extension (L3) 5 Normal Ankle/Foot Strength Ankle and Foot Manual Muscle Testing Right Dorsiflexion (L4) 5 Normal Plantarflexion (S1) 5 Normal Left Dorsiflexion (L4) 5 Normal Plantarflexion (S1) 5 Normal Comments 20 heel raises B PT-OP-Q Treatments Start: 08/01/22 17:48 Freq: Status: Active Protocol: Document 09/15/22 13:45 [facility] (Rec: 09/15/22 14:03 [facility] [id number]) Manual Therapy Treatment Soft Tissue Mobilization HS Body Location B HS w/active HS stretch Mobilization Type Rolling,Strumming,Sustained Pressure Intensity/Depth Moderate abdomen Body Location R Comments w/flex hip flexor Body Location R proximal psoas Mobilization Type Sustained Pressure Intensity/Depth Moderate Comments in 90/90 flex position Joint Mobilizations innominate Joint B flex FM; R abd FM at ischial tub hips Joint B inf FM supine Self-Care/Home Management Treatment Education Other Education 15 min: edu that stretches are okay as long as back is in neutral; reminder that w/core exercises not trying to do PPT but avoiding APT. Edu that she should cont good movement strategies even once cleared for movement d/t it is better for the back. PT-OP-T Assessment and Plan Start: 08/01/22 17:48 Freq: Status: Active Protocol: Document 09/15/22 13:45 [facility] (Rec: 09/15/22 14:03 [facility] [id number]) Physical Therapy Assessment Goals exercise Fdc Goal (LTG) Pt will be able to return to [place] exercise routines w/o inc pain. 08/23-started 6 min and felt ok LTG Duration 10/11/22 activities Impairment cannot sit >20min and pain w/ laying down Short Term Goal (STG) Pt will be able to position herself to sleep comofrtably though to night w/o inc pain. 08/23-dec frequency of waking up through night STG Duration 09/01/22 Branch Operations Manager Goal (LTG) Pt will be able to sit as long as needed without inc pain. 08/23-still very limited; no change LTG Duration 10/11/22 strength Short Term Goal (STG) Pt will be indep w/HEP for flexiblity, strength and posture 08/23-advancing as able STG Duration 09/01/22 Fdc Goal (LTG) Pt will score at least 5/5 on all LE MMT B and at least 3/5 LPM and EFT to show improved stabiltiy to allow pt to return to her normal activities w/o pain. 08/23improved LTG Duration 10/12/22 JANE Impairment 13/50 Short Term Goal (STG) Pt will improve score to no greater than 7/50 to show improved functional ability STG Duration 09/01/22 Fdc Goal (LTG) Pt will improve score to no greater than 2/50 to show improved functional ability LTG Duration 10/11/22 Assessment Summary Assessment Pt cont to have innominate dysfunction but had much improvement of flex w/manual and after manual was able to do deep squat w/o inc back pain. Physical Therapy Plan Frequency and Duration Frequency of Treatment 2x/wk 1 wk>1x/wk Duration of treatment (weeks) 10 Plan of Care Start Date 08/02/22 Plan of Care End Date 10/11/22 Next Visit Focus/Plan Next Note Type Treatment Note Next Visit Plan visceral work, coccyx mob, cont to work innominate mobility (abd/add)-abd supine in full flex
--- NOTE | 2022-09-22 16:36 | PT.OTN ---
Current Diagnoses Intervertebral disc disorders with radiculopathy, lumbar region (09/22/22) Abnormal posture (09/22/22) Weakness (09/22/22) Physical Therapy Treatment Note PT-OP-A Visit Information Start: 08/01/22 17:48 Freq: Status: Active Protocol: Document 09/22/22 12:47 [facility] (Rec: 09/22/22 16:36 [facility] [id number]) Out-Patient Physical Therapy Visit Information Visit Information Visit Type Treatment Note Visit Start Time 12:47 Visit Stop Time 13:32 Total Visit Minutes 45 Visit Number 12/19 Number of LOIN TRIMMER Visits 0 PT-OP-B Current Condition Start: 08/01/22 17:48 Freq: Status: Active Protocol: Document 08/02/22 15:03 [facility] (Rec: 08/02/22 16:09 [facility] [id number]) Current Condition History of Current Condition Onset Date L3-4 TLIF 06/06 Current Complaints LBP History of Current Condition Pt reports back pain started Mar 18 and she had worked out and felt sore that day and took a few days off and it didn't get beter. She hasn't worked out now since Mar. She had a cyst on the inside of her spine and they had to remove the disc in order to remove the cyst in the ant. She now had TLIF of L3-4. A spacer was placed in the spine also She had uterine CA on 2016 and it was all contained on her uterus and had that removed at the time. Her appendix ruptured 09/2017 and had appendectomy. She had to go back to the ER d/t bowel blockage and abscess. She had an umbilical hernia in 02/2018 and they just did a stich and then d/t covid didn't get fixed until 08/22 since it didn 't work. Pt reports her back used to be very flexible in ext. She felt like she had too much mobility ant and post flexiblity. 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 Pt reprots typically her workouts would be [place] and walking her dog. 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 Pt reports surgery was very painful. said she was healing well and plan to follow up in 2 more months. She is to cont to limit bending, lifting (greater than 10lbs) and twisting. Plan will be to possibly clear that in 2 months. Pt reports she has been walking 5 miles but MD said she was walking too much so she is now doing 4 miles/day. she walks slowly. Pt reports after her last hernia surgery, she had a lot more unstable in her core. Pt was limited in working out d/t 6 weeks required to rest after surgery and then had flu for 6 weeks then COVID for 6 weeks. Pt reports after surgery was re-admitted d/t severe constipation that requird colonoscopy. Prior Treatments and Tests Tried PT prior to surgery but pt notes she had LBP w/R leg pain all the way down leg Treatment Goals Patient/Caregiver Goals Get back to barre, pick something off ground, sleep, sit extended, no pain w/ donning socks & shoes PT-OP-C Subjective Start: 08/01/22 17:48 Freq: Status: Active Protocol: Document 09/22/22 12:47 [facility] (Rec: 09/22/22 16:36 [facility] [id number]) OP-PT Subjective Patient Comments Patient Comments Pt reports she feels like last session really helped. She is looking fwd to being able to bend. Her appt w/MD is next . PT-OP-D Balance Start: 08/01/22 17:48 Freq: Status: Active Protocol: Document 08/02/22 15:03 [facility] (Rec: 08/02/22 16:09 [facility] [id number]) Balance Tests Single Limb Standing Single Limb- Right >30sec w/lat r hip shear & L rot Single Limb- Left >30 sec w/lat left hip shear and R hip hike PT-OP-F Manual Assessment Start: 08/01/22 17:48 Freq: Status: Active Protocol: Document 08/02/22 15:03 [facility] (Rec: 08/02/22 16:09 [facility] [id number]) Manual Assessments Soft Tissue Assessment Soft Tissue Mobility Assessment QL & ES tight B PT-OP-G Mobility & Gait Start: 08/01/22 17:48 Freq: Status: Active Protocol: Document 08/02/22 15:03 [facility] (Rec: 08/02/22 16:09 [facility] [id number]) OP Gait Assessment Comments Gait Comments dec ant dep B; LLE occ adducts , dec post dep B PT-OP-J Posture/Palpation/Skin Start: 08/01/22 17:48 Freq: Status: Active Protocol: Document 08/23/22 12:49 [facility] (Rec: 08/23/22 14:05 [facility] [id number]) Posture Evaluation [facility] Postural Classification System [facility] Postural Classifications Vertical/Posterior Elbow Flexion Test 3 Lumbar Protective Mechanism Left AP 0 Lumbar Protective Mechanism Right AP 1 Lumbar Protective Mechanism Left PA 1 Lumbar Protective Mechanism Right PA 1 PT-OP-M Strength Start: 08/01/22 17:48 Freq: Status: Active Protocol: Document 08/23/22 12:49 [facility] (Rec: 08/23/22 14:05 [facility] [id number]) Hip Strength Hip Manual Muscle Testing Right Flexion (L2) 4 Good Extension (S1) 3+ Fair+ Abduction 4+ Good+ Adduction 5 Normal External Rotation 4- Good- Internal Rotation 5 Normal Comments pain in back w/hp ext and ER B Left Flexion (L2) 4 Good Extension (S1) 3+ Fair+ Abduction 4+ Good+ Adduction 5 Normal External Rotation 4 Good Internal Rotation 5 Normal Comments dec core stability w/testing- pain w/ER Knee Strength Knee Manual Muscle Testing Right Flexion (S2) 5 Normal Extension (L3) 5 Normal Left Flexion (S2) 5 Normal Extension (L3) 5 Normal Ankle/Foot Strength Ankle and Foot Manual Muscle Testing Right Dorsiflexion (L4) 5 Normal Plantarflexion (S1) 5 Normal Left Dorsiflexion (L4) 5 Normal Plantarflexion (S1) 5 Normal Comments 20 heel raises B PT-OP-Q Treatments Start: 08/01/22 17:48 Freq: Status: Active Protocol: Document 09/22/22 12:47 [facility] (Rec: 09/22/22 16:36 [facility] [id number]) Therapeutic Activity Therapeutic Activity posture Reps/Minutes 5 min Comments standing posture in mirror working on keeping pelvis neutral and thoracic stacking Manual Therapy Treatment Soft Tissue Mobilization post Body Location L rhomboids, lats Mobilization Type Strumming Intensity/Depth Moderate Body Position Sidelying abdomen Body Location R Comments w/flex hip and breathing and cervical rot hip flexor Body Location R proximal psoas Mobilization Type Sustained Pressure Intensity/Depth Moderate Comments in 90/90 flex position Joint Mobilizations thoracic Joint transverse R T5-7 FM and percussion ribs Joint caudal upper ribs general w/ scap pattenr FM Neuro Re-Education Treatment Other Activities PNF Details L Reps/Duration 8 min Comments 1. scap post dep rhythmic initiation 2. scap post dep sustained hold and irraditiaton from L pivot prone 3. scap post dep w/irradation to L ant elevation PT-OP-T Assessment and Plan Start: 08/01/22 17:48 Freq: Status: Active Protocol: Document 09/22/22 12:47 [facility] (Rec: 09/22/22 16:36 [facility] [id number]) Physical Therapy Assessment Goals exercise Senior Living Goal (LTG) Pt will be able to return to [place] exercise routines w/o inc pain. 08/23-started 6 min and felt ok LTG Duration 10/11/22 activities Impairment cannot sit >20min and pain w/ laying down Short Term Goal (STG) Pt will be able to position herself to sleep comofrtably though to night w/o inc pain. 08/23-mar frequency of waking up through night STG Duration 09/01/22 Senior Living Goal (LTG) Pt will be able to sit as long as needed without inc pain. 08/23-still very limited; no change LTG Duration 10/11/22 strength Short Term Goal (STG) Pt will be indep w/HEP for flexiblity, strength and posture 08/23-advancing as able STG Duration 09/01/22 Senior Living Goal (LTG) Pt will score at least 5/5 on all LE MMT B and at least 3/5 LPM and EFT to show improved stabiltiy to allow pt to return to her normal activities w/o pain. 08/23improved LTG Duration 10/12/22 JANE Impairment 13/50 Short Term Goal (STG) Pt will improve score to no greater than 7/50 to show improved functional ability STG Duration 09/01/22 Appeals Assistant Goal (LTG) Pt will improve score to no greater than 2/50 to show improved functional ability LTG Duration 10/11/22 Assessment Summary Assessment Pt had imrpoved abiltiy to lift LUE ins tanding w/better neutral trunk and rhomobid engagment after manual along w /dec pelvic shear in standing. Physical Therapy Plan Frequency and Duration Frequency of Treatment 2x/wk 1 wk>1x/wk Duration of treatment (weeks) 10 Plan of Care Start Date 08/02/22 Plan of Care End Date 10/11/22 Next Visit Focus/Plan Next Note Type Progress Note Next Visit Plan visceral work, coccyx mob, cont to work innominate mobility (abd/add)-abd supine in full flex
--- NOTE | 2022-09-29 15:16 | PT.OTN ---
Current Diagnoses Intervertebral disc disorders with radiculopathy, lumbar region (09/29/22) Abnormal posture (09/29/22) Weakness (09/29/22) Physical Therapy Treatment Note PT-OP-A Visit Information Start: 08/01/22 17:48 Freq: Status: Active Protocol: Document 09/29/22 12:49 [facility] (Rec: 09/29/22 15:16 [facility] [id number]) Out-Patient Physical Therapy Visit Information Visit Information Visit Type Progress Note Visit Number 01/18 Number of DIGITAL FIELD SERVICE TECHNICIAN Visits 0 PT-OP-B Current Condition Start: 08/01/22 17:48 Freq: Status: Active Protocol: Document 08/02/22 15:03 [facility] (Rec: 08/02/22 16:09 [facility] [id number]) Current Condition History of Current Condition Onset Date L3-4 TLIF 06/06 Current Complaints LBP History of Current Condition Pt reports back pain started Mar 18 and she had worked out and felt sore that day and took a few days off and it didn't get beter. She hasn't worked out now since Mar. She had a cyst on the inside of her spine and they had to remove the disc in order to remove the cyst in the ant. She now had TLIF of L3-4. A spacer was placed in the spine also She had uterine CA on 2016 and it was all contained on her uterus and had that removed at the time. Her appendix ruptured 09/2017 and had appendectomy. She had to go back to the ER d/t bowel blockage and abscess. She had an umbilical hernia in 02/2018 and they just did a stich and then d/t covid didn't get fixed until 08/22 since it didn 't work. Pt reports her back used to be very flexible in ext. She felt like she had too much mobility ant and post flexiblity. 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 Pt reprots typically her workouts would be [place] and walking her dog. 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 Pt reports surgery was very painful. said she was healing well and plan to follow up in 2 more months. She is to cont to limit bending, lifting (greater than 10lbs) and twisting. Plan will be to possibly clear that in 2 months. Pt reports she has been walking 5 miles but MD said she was walking too much so she is now doing 4 miles/day. she walks slowly. Pt reports after her last hernia surgery, she had a lot more unstable in her core. Pt was limited in working out d/t 6 weeks required to rest after surgery and then had flu for 6 weeks then COVID for 6 weeks. Pt reports after surgery was re-admitted d/t severe constipation that requird colonoscopy. Prior Treatments and Tests Tried PT prior to surgery but pt notes she had LBP w/R leg pain all the way down leg Treatment Goals Patient/Caregiver Goals Get back to barre, pick something off ground, sleep, sit extended, no pain w/ donning socks & shoes PT-OP-C Subjective Start: 08/01/22 17:48 Freq: Status: Active Protocol: Document 09/29/22 12:49 [facility] (Rec: 09/29/22 15:16 [facility] [id number]) OP-PT Subjective Patient Comments Patient Comments Pt reports she looks forward to her MD juan [employer] and is hopeful to be able to bend. PT-OP-D Balance Start: 08/01/22 17:48 Freq: Status: Active Protocol: Document 08/02/22 15:03 [facility] (Rec: 08/02/22 16:09 [facility] [id number]) Balance Tests Single Limb Standing Single Limb- Right >30sec w/lat r hip shear & L rot Single Limb- Left >30 sec w/lat left hip shear and R hip hike PT-OP-F Manual Assessment Start: 08/01/22 17:48 Freq: Status: Active Protocol: Document 08/02/22 15:03 [facility] (Rec: 08/02/22 16:09 [facility] [id number]) Manual Assessments Soft Tissue Assessment Soft Tissue Mobility Assessment QL & ES tight B PT-OP-G Mobility & Gait Start: 08/01/22 17:48 Freq: Status: Active Protocol: Document 08/02/22 15:03 [facility] (Rec: 08/02/22 16:09 [facility] [id number]) OP Gait Assessment Comments Gait Comments dec ant dep B; LLE occ adducts , dec post dep B PT-OP-J Posture/Palpation/Skin Start: 08/01/22 17:48 Freq: Status: Active Protocol: Document 09/29/22 12:49 [facility] (Rec: 09/29/22 15:16 [facility] [id number]) Posture Evaluation [facility] Postural Classification System [facility] Postural Classifications Vertical/Posterior Elbow Flexion Test 4 Lumbar Protective Mechanism Left AP 2 Lumbar Protective Mechanism Right AP 2 Lumbar Protective Mechanism Left PA 4 Lumbar Protective Mechanism Right PA 3 PT-OP-M Strength Start: 08/01/22 17:48 Freq: Status: Active Protocol: Document 09/29/22 12:49 [facility] (Rec: 09/29/22 15:16 [facility] [id number]) Hip Strength Hip Manual Muscle Testing Right Flexion (L2) 4 Good Extension (S1) 4- Good- Abduction 5 Normal Adduction 5 Normal External Rotation 5 Normal Internal Rotation 5 Normal Comments pain in back w/hp ext B Left Flexion (L2) 4+ Good+ Extension (S1) 4- Good- Abduction 4+ Good+ Adduction 5 Normal External Rotation 5 Normal Internal Rotation 5 Normal Comments dec core stability w/testing hip flex B Knee Strength Knee Manual Muscle Testing Right Flexion (S2) 5 Normal Extension (L3) 5 Normal Left Flexion (S2) 5 Normal Extension (L3) 5 Normal Ankle/Foot Strength Ankle and Foot Manual Muscle Testing Right Dorsiflexion (L4) 5 Normal Plantarflexion (S1) 5 Normal Left Dorsiflexion (L4) 5 Normal Plantarflexion (S1) 5 Normal Comments 20 heel raises B PT-OP-Q Treatments Start: 08/01/22 17:48 Freq: Status: Active Protocol: Document 09/29/22 12:49 [facility] (Rec: 09/29/22 15:16 [facility] [id number]) Therapeutic Exercises Supine Exercises abdominal series Supine Exercise Name flex Side bilateral Reps/Minutes 30 sec ea Prone Exercises hip ext Side bilateral Reps/Minutes 10 sec x2 B Comments also prolonge dholds w/PT pressure Standing Exercises bottoms up Side bilateral Reps/Minutes 10 sec x5 Manual Therapy Treatment Joint Mobilizations innominate Comments R abd FM, L add FM, B ext FM- manual faciliation at end ranges hips Comments L add FM & R abd FM PT-OP-T Assessment and Plan Start: 08/01/22 17:48 Freq: Status: Active Protocol: Document 09/29/22 12:49 [facility] (Rec: 09/29/22 15:16 [facility] [id number]) Physical Therapy Assessment Goals exercise Calciminer Goal (LTG) Pt will be able to return to [place] exercise routines w/o inc pain. 08/23-started 6 min and felt ok 09/29-back to modified barre for 50 min 5-6 days a week LTG Duration 12/12 activities Impairment cannot sit >20min and pain w/ laying down Short Term Goal (STG) Pt will be able to position herself to sleep comofrtably though to night w/o inc pain. 08/23-dec frequency of waking up through night STG Duration achieved Calciminer Goal (LTG) Pt will be able to sit as long as needed without inc pain. 08/23-still very limited; no change 09/29-can sit about 10 min before pain starts LTG Duration 12/08 strength Short Term Goal (STG) Pt will be indep w/HEP for flexiblity, strength and posture 08/23-advancing as able STG Duration achieved advancing as able Fpc Goal (LTG) Pt will score at least 5/5 on all LE MMT B and at least 3/5 LPM and EFT to show improved stabiltiy to allow pt to return to her normal activities w/o pain. 08/23improved 09/29-much improved LTG Duration 12/08 JANE Impairment 13/50 Short Term Goal (STG) Pt will improve score to no greater than 7/50 to show improved functional ability 09/29-n/t STG Duration 10/01 Fpc Goal (LTG) Pt will improve score to no greater than 2/50 to show improved functional ability LTG Duration 12/08 Assessment Summary Assessment Pt is making excellent progress towards PT goals and is showing much improved strength but does still demonstrate some dec core stability overall. She would benefit from cont PT to work on these deficits an dimprove her functional ability including her ability to sit extended. Physical Therapy Plan Frequency and Duration Frequency of Treatment 1x/Week Duration of treatment (weeks) 10 Plan of Care Start Date 09/29/22 Plan of Care End Date 12/08/22 Therapeutic Interventions Therapeutic Interventions Balance Training,Gait Training ,Home Exercise Program,Joint Mobilizations,Manual Therapy, Neuromuscular Re-education, Patient/Caregiver Education, Self-Care/Home Management,Soft Tissue Mobilization,Taping, Therapeutic Activities, Therapeutic Exercises Modalities Cold Pack/Ice Massage,Electric Stimulation,Ultrasound Next Visit Focus/Plan Next Note Type Progress Note Next Visit Plan visceral work, coccyx mob, cont to work innominate mobility , PNF for core facilitation
--- NOTE | 2022-09-29 15:16 | PT.OPPOC ---
Physical, Occupational & Speech Therapy At [facility] Current Diagnoses Intervertebral disc disorders with radiculopathy, lumbar region (09/29/22) Abnormal posture (09/29/22) Weakness (09/29/22) Visit Care Team Role Provider Type Beena Yusuf ND Family Provider Non-Staff Primary Care Provider Specialty: Naturopathy Address: [address], [address], [place], [address] Email: Iván Duke MD Attending Provider Physician Referring Provider Specialty: Orthopedics Orthopedic Surgery Address: [address] [place] [address], [address] Email: [email or web address] Plan Of Care PT-OP-T Assessment and Plan Start: 08/01/22 17:48 Freq: Status: Active Protocol: Document 09/29/22 12:49 [facility] (Rec: 09/29/22 15:16 [facility] [id number]) Physical Therapy Assessment Goals exercise Employment Consultant Goal (LTG) Pt will be able to return to [place] exercise routines w/o inc pain. 08/23-started 6 min and felt ok 09/29-back to modified barre for 50 min 5-6 days a week LTG Duration 12/12 activities Impairment cannot sit >20min and pain w/ laying down Short Term Goal (STG) Pt will be able to position herself to sleep comofrtably though to night w/o inc pain. 08/23-dec frequency of waking up through night STG Duration achieved Custodial Goal (LTG) Pt will be able to sit as long as needed without inc pain. 08/23-still very limited; no change 09/29-can sit about 10 min before pain starts LTG Duration 12/08 strength Short Term Goal (STG) Pt will be indep w/HEP for flexiblity, strength and posture 08/23-advancing as able STG Duration achieved advancing as able Employment Consultant Goal (LTG) Pt will score at least 5/5 on all LE MMT B and at least 3/5 LPM and EFT to show improved stabiltiy to allow pt to return to her normal activities w/o pain. 08/23improved 09/29-much improved LTG Duration 12/08 JANE Impairment 1350 Short Term Goal (STG) Pt will improve score to no greater than 7/50 to show improved functional ability 09/29-n/t STG Duration 10/01 Custodial Goal (LTG) Pt will improve score to no greater than 2/50 to show improved functional ability LTG Duration 12/08 Assessment Summary Assessment Pt is making excellent progress towards PT goals and is showing much improved strength but does still demonstrate some dec core stability overall. She would benefit from cont PT to work on these deficits an dimprove her functional ability including her ability to sit extended. Physical Therapy Plan Frequency and Duration Frequency of Treatment 1x/Week Duration of treatment (weeks) 10 Plan of Care Start Date 09/29/22 Plan of Care End Date 12/08/22 Therapeutic Interventions Therapeutic Interventions Balance Training,Gait Training ,Home Exercise Program,Joint Mobilizations,Manual Therapy, Neuromuscular Re-education, Patient/Caregiver Education, Self-Care/Home Management,Soft Tissue Mobilization,Taping, Therapeutic Activities, Therapeutic Exercises Modalities Cold Pack/Ice Massage,Electric Stimulation,Ultrasound Next Visit Focus/Plan Next Note Type Progress Note Next Visit Plan visceral work, coccyx mob, cont to work innominate mobility , PNF for core facilitation Plan of Care Dates Plan of Care Start Date 09/29/22 Plan of Care End Date 12/08/22 Electronically Signed by: Precious Castaneda, PT 09/29/22 0821 If you are in agreement with this Plan of Care, please return a signed and dated copy. I have reviewed this Plan of Care and certify that the skilled therapy services above are required to meet the patient?s needs. Physician Signature Date Printed Name and Credentials Clinical Instructor Signature Printed Name and Credentials
--- NOTE | 2022-10-06 18:22 | PT.OTN ---
Current Diagnoses Intervertebral disc disorders with radiculopathy, lumbar region (10/06/22) Abnormal posture (10/06/22) Weakness (10/06/22) Physical Therapy Treatment Note PT-OP-A Visit Information Start: 08/01/22 17:48 Freq: Status: Active Protocol: Document 10/06/22 18:18 [facility] (Rec: 10/06/22 18:22 [facility] [id number]) Out-Patient Physical Therapy Visit Information Visit Information Visit Type Treatment Note Visit Start Time 12:46 Visit Stop Time 13:34 Total Visit Minutes 48 Visit Number 02/18 Number of SURFACE WATER TECHNICIAN Visits 0 PT-OP-B Current Condition Start: 08/01/22 17:48 Freq: Status: Active Protocol: Document 08/02/22 15:03 [facility] (Rec: 08/02/22 16:09 [facility] [id number]) Current Condition History of Current Condition Onset Date L3-4 TLIF 06/06 Current Complaints LBP History of Current Condition Pt reports back pain started Mar 18 and she had worked out and felt sore that day and took a few days off and it didn't get beter. She hasn't worked out now since Mar. She had a cyst on the inside of her spine and they had to remove the disc in order to remove the cyst in the ant. She now had TLIF of L3-4. A spacer was placed in the spine also She had uterine CA on 2016 and it was all contained on her uterus and had that removed at the time. Her appendix ruptured 09/2017 and had appendectomy. She had to go back to the ER d/t bowel blockage and abscess. She had an umbilical hernia in 02/2018 and they just did a stich and then d/t covid didn't get fixed until 08/22 since it didn 't work. Pt reports her back used to be very flexible in ext. She felt like she had too much mobility ant and post flexiblity. 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 Pt reprots typically her workouts would be [place] and walking her dog. 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 Pt reports surgery was very painful. said she was healing well and plan to follow up in 2 more months. She is to cont to limit bending, lifting (greater than 10lbs) and twisting. Plan will be to possibly clear that in 2 months. Pt reports she has been walking 5 miles but MD said she was walking too much so she is now doing 4 miles/day. she walks slowly. Pt reports after her last hernia surgery, she had a lot more unstable in her core. Pt was limited in working out d/t 6 weeks required to rest after surgery and then had flu for 6 weeks then COVID for 6 weeks. Pt reports after surgery was re-admitted d/t severe constipation that requird colonoscopy. Prior Treatments and Tests Tried PT prior to surgery but pt notes she had LBP w/R leg pain all the way down leg Treatment Goals Patient/Caregiver Goals Get back to barre, pick something off ground, sleep, sit extended, no pain w/ donning socks & shoes PT-OP-C Subjective Start: 08/01/22 17:48 Freq: Status: Active Protocol: Document 10/06/22 18:18 [facility] (Rec: 10/06/22 18:22 [facility] [id number]) OP-PT Subjective Patient Comments Patient Comments Pt reports she is cleared to slowly progress back ROM w/PT direction from . Xray showd good healing PT-OP-D Balance Start: 08/01/22 17:48 Freq: Status: Active Protocol: Document 08/02/22 15:03 [facility] (Rec: 08/02/22 16:09 [facility] [id number]) Balance Tests Single Limb Standing Single Limb- Right >30sec w/lat r hip shear & L rot Single Limb- Left >30 sec w/lat left hip shear and R hip hike PT-OP-F Manual Assessment Start: 08/01/22 17:48 Freq: Status: Active Protocol: Document 08/02/22 15:03 [facility] (Rec: 08/02/22 16:09 [facility] [id number]) Manual Assessments Soft Tissue Assessment Soft Tissue Mobility Assessment QL & ES tight B PT-OP-G Mobility & Gait Start: 08/01/22 17:48 Freq: Status: Active Protocol: Document 08/02/22 15:03 [facility] (Rec: 08/02/22 16:09 [facility] [id number]) OP Gait Assessment Comments Gait Comments dec ant dep B; LLE occ adducts , dec post dep B PT-OP-J Posture/Palpation/Skin Start: 08/01/22 17:48 Freq: Status: Active Protocol: Document 09/29/22 12:49 [facility] (Rec: 09/29/22 15:16 [facility] [id number]) Posture Evaluation [facility] Postural Classification System [facility] Postural Classifications Vertical/Posterior Elbow Flexion Test 4 Lumbar Protective Mechanism Left AP 2 Lumbar Protective Mechanism Right AP 2 Lumbar Protective Mechanism Left PA 4 Lumbar Protective Mechanism Right PA 3 PT-OP-M Strength Start: 08/01/22 17:48 Freq: Status: Active Protocol: Document 09/29/22 12:49 [facility] (Rec: 09/29/22 15:16 [facility] [id number]) Hip Strength Hip Manual Muscle Testing Right Flexion (L2) 4 Good Extension (S1) 4- Good- Abduction 5 Normal Adduction 5 Normal External Rotation 5 Normal Internal Rotation 5 Normal Comments pain in back w/hp ext B Left Flexion (L2) 4+ Good+ Extension (S1) 4- Good- Abduction 4+ Good+ Adduction 5 Normal External Rotation 5 Normal Internal Rotation 5 Normal Comments dec core stability w/testing hip flex B Knee Strength Knee Manual Muscle Testing Right Flexion (S2) 5 Normal Extension (L3) 5 Normal Left Flexion (S2) 5 Normal Extension (L3) 5 Normal Ankle/Foot Strength Ankle and Foot Manual Muscle Testing Right Dorsiflexion (L4) 5 Normal Plantarflexion (S1) 5 Normal Left Dorsiflexion (L4) 5 Normal Plantarflexion (S1) 5 Normal Comments 20 heel raises B PT-OP-Q Treatments Start: 08/01/22 17:48 Freq: Status: Active Protocol: Document 10/06/22 18:18 [facility] (Rec: 10/06/22 18:22 [facility] [id number]) Therapeutic Exercises Other Exercises cat cow Other Exercise Name cues for comfortable range Reps/Minutes 8 downdog Side bilateral Reps/Minutes 30 sec yosef pose Other Exercise Name gentle sit back and gentle puppy stretch Side bilateral Comments cues cofmortable range Manual Therapy Treatment Soft Tissue Mobilization post Body Location ES & lumbar Comments MFR superficial, bony contors and ES rolling FM w/cat/cow abdomen Body Location R Comments w/flex hip and breathing and rot of LEs hip flexor Body Location R proximal psoas Mobilization Type Sustained Pressure Intensity/Depth Moderate Comments in 90/90 flex position scar Body Location spine Mobilization Type Myofascial Release Intensity/Depth Superficial Comments cat/cow PT-OP-T Assessment and Plan Start: 08/01/22 17:48 Freq: Status: Active Protocol: Document 10/06/22 18:18 [facility] (Rec: 10/06/22 18:22 [facility] [id number]) Physical Therapy Assessment Goals exercise Fdc Goal (LTG) Pt will be able to return to [place] exercise routines w/o inc pain. 08/23-started 6 min and felt ok 09/29-back to modified barre for 50 min 5-6 days a week LTG Duration 12/12 activities Impairment cannot sit >20min and pain w/ laying down Short Term Goal (STG) Pt will be able to position herself to sleep comofrtably though to night w/o inc pain. 08/23-dec frequency of waking up through night STG Duration achieved Fdc Goal (LTG) Pt will be able to sit as long as needed without inc pain. 08/23-still very limited; no change 09/29-can sit about 10 min before pain starts LTG Duration 12/08 strength Short Term Goal (STG) Pt will be indep w/HEP for flexiblity, strength and posture 08/23-advancing as able STG Duration achieved advancing as able Dealer Relationship Manager Goal (LTG) Pt will score at least 5/5 on all LE MMT B and at least 3/5 LPM and EFT to show improved stabiltiy to allow pt to return to her normal activities w/o pain. 08/23improved 09/29-much improved LTG Duration 12/08 JANE Impairment 13/50 Short Term Goal (STG) Pt will improve score to no greater than 7/50 to show improved functional ability 09/29-n/t STG Duration 10/01 Dealer Relationship Manager Goal (LTG) Pt will improve score to no greater than 2/50 to show improved functional ability LTG Duration 12/08 Assessment Summary Assessment Pt was able to flex lumbar spine very minimally at start of treatment and did improve a couple inches fo motion of hands down thighs after manual treatment today. Physical Therapy Plan Frequency and Duration Frequency of Treatment 1x/Week Duration of treatment (weeks) 10 Plan of Care Start Date 09/29/22 Plan of Care End Date 12/08/22 Next Visit Focus/Plan Next Note Type Treatment Note Next Visit Plan visceral work, coccyx mob, cont to work innominate mobility , PNF for core facilitation, work lumbar flex
--- NOTE | 2022-10-13 17:43 | PT.OTN ---
Current Diagnoses Intervertebral disc disorders with radiculopathy, lumbar region (10/13/22) Abnormal posture (10/13/22) Weakness (10/13/22) Physical Therapy Treatment Note PT-OP-A Visit Information Start: 08/01/22 17:48 Freq: Status: Active Protocol: Document 10/13/22 17:24 [facility] (Rec: 10/13/22 17:43 [facility] [id number]) Out-Patient Physical Therapy Visit Information Visit Information Visit Type Treatment Note Visit Start Time 12:47 Visit Stop Time 13:31 Total Visit Minutes 44 Visit Number 03/20 Number of LODGING HOUSE KEEPER Visits 0 PT-OP-B Current Condition Start: 08/01/22 17:48 Freq: Status: Active Protocol: Document 08/02/22 15:03 [facility] (Rec: 08/02/22 16:09 [facility] [id number]) Current Condition History of Current Condition Onset Date L3-4 TLIF 06/06 Current Complaints LBP History of Current Condition Pt reports back pain started Mar 18 and she had worked out and felt sore that day and took a few days off and it didn't get beter. She hasn't worked out now since Mar. She had a cyst on the inside of her spine and they had to remove the disc in order to remove the cyst in the ant. She now had TLIF of L3-4. A spacer was placed in the spine also She had uterine CA on 2016 and it was all contained on her uterus and had that removed at the time. Her appendix ruptured 09/2017 and had appendectomy. She had to go back to the ER d/t bowel blockage and abscess. She had an umbilical hernia in 02/2018 and they just did a stich and then d/t covid didn't get fixed until 08/22 since it didn 't work. Pt reports her back used to be very flexible in ext. She felt like she had too much mobility ant and post flexiblity. 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 Pt reprots typically her workouts would be [place] and walking her dog. 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 Pt reports surgery was very painful. said she was healing well and plan to follow up in 2 more months. She is to cont to limit bending, lifting (greater than 10lbs) and twisting. Plan will be to possibly clear that in 2 months. Pt reports she has been walking 5 miles but said she was walking too much so she is now doing 4 miles/day. she walks slowly. Pt reports after her last hernia surgery, she had a lot more unstable in her core. Pt was limited in working out d/t 6 weeks required to rest after surgery and then had flu for 6 weeks then COVID for 6 weeks. Pt reports after surgery was re-admitted d/t severe constipation that requird colonoscopy. Prior Treatments and Tests Tried PT prior to surgery but pt notes she had LBP w/R leg pain all the way down leg Treatment Goals Patient/Caregiver Goals Get back to barre, pick something off ground, sleep, sit extended, no pain w/ donning socks & shoes PT-OP-C Subjective Start: 08/01/22 17:48 Freq: Status: Active Protocol: Document 10/13/22 17:24 [facility] (Rec: 10/13/22 17:43 [facility] [id number]) OP-PT Subjective Patient Comments Patient Comments Pt reports she has been doing well but sitting is still the largest restriction. PT-OP-D Balance Start: 08/01/22 17:48 Freq: Status: Active Protocol: Document 08/02/22 15:03 [facility] (Rec: 08/02/22 16:09 [facility] [id number]) Balance Tests Single Limb Standing Single Limb- Right >30sec w/lat r hip shear & L rot Single Limb- Left >30 sec w/lat left hip shear and R hip hike PT-OP-F Manual Assessment Start: 08/01/22 17:48 Freq: Status: Active Protocol: Document 08/02/22 15:03 [facility] (Rec: 08/02/22 16:09 [facility] [id number]) Manual Assessments Soft Tissue Assessment Soft Tissue Mobility Assessment QL & ES tight B PT-OP-G Mobility & Gait Start: 08/01/22 17:48 Freq: Status: Active Protocol: Document 08/02/22 15:03 [facility] (Rec: 08/02/22 16:09 [facility] [id number]) OP Gait Assessment Comments Gait Comments dec ant dep B; LLE occ adducts , dec post dep B PT-OP-J Posture/Palpation/Skin Start: 08/01/22 17:48 Freq: Status: Active Protocol: Document 09/29/22 12:49 [facility] (Rec: 09/29/22 15:16 [facility] [id number]) Posture Evaluation [facility] Postural Classification System [facility]ass Postural Classifications Vertical/Posterior Elbow Flexion Test 4 Lumbar Protective Mechanism Left AP 2 Lumbar Protective Mechanism Right AP 2 Lumbar Protective Mechanism Left PA 4 Lumbar Protective Mechanism Right PA 3 PT-OP-M Strength Start: 08/01/22 17:48 Freq: Status: Active Protocol: Document 09/29/22 12:49 [facility] (Rec: 09/29/22 15:16 [facility] [id number]) Hip Strength Hip Manual Muscle Testing Right Flexion (L2) 4 Good Extension (S1) 4- Good- Abduction 5 Normal Adduction 5 Normal External Rotation 5 Normal Internal Rotation 5 Normal Comments pain in back w/hp ext B Left Flexion (L2) 4+ Good+ Extension (S1) 4- Good- Abduction 4+ Good+ Adduction 5 Normal External Rotation 5 Normal Internal Rotation 5 Normal Comments dec core stability w/testing hip flex B Knee Strength Knee Manual Muscle Testing Right Flexion (S2) 5 Normal Extension (L3) 5 Normal Left Flexion (S2) 5 Normal Extension (L3) 5 Normal Ankle/Foot Strength Ankle and Foot Manual Muscle Testing Right Dorsiflexion (L4) 5 Normal Plantarflexion (S1) 5 Normal Left Dorsiflexion (L4) 5 Normal Plantarflexion (S1) 5 Normal Comments 20 heel raises B PT-OP-Q Treatments Start: 08/01/22 17:48 Freq: Status: Active Protocol: Document 10/13/22 17:24 [facility] (Rec: 10/13/22 17:43 [facility] [id number]) Manual Therapy Treatment Soft Tissue Mobilization post Body Location ES & lumbar Comments MFR superficial, bony contors and ES rolling FM w/cat/cow scar Body Location spine Mobilization Type Myofascial Release Intensity/Depth Superficial Comments cat/cow Joint Mobilizations coccyx Comments distraction on R side,UPA L and R to L SB FM & correction of flexed coccyx FM innominate Comments L abd in sitting at ischial tuberosity Other Other Manual Treatments Pt verbally consented to all manual treatment Self-Care/Home Management Treatment Education Other Education 4 min: edu re: importance of coccyx (sit directly on it, pelvic floor connection, fascial connection, dural connection, sympathetic gangia in ant aspect) PT-OP-T Assessment and Plan Start: 08/01/22 17:48 Freq: Status: Active Protocol: Document 10/13/22 17:24 [facility] (Rec: 10/13/22 17:43 [facility] [id number]) Physical Therapy Assessment Goals exercise Laminator Preforms Goal (LTG) Pt will be able to return to [place] exercise routines w/o inc pain. 08/23-started 6 min and felt ok 09/29-back to modified barre for 50 min 5-6 days a week LTG Duration 12/12 activities Impairment cannot sit >20min and pain w/ laying down Short Term Goal (STG) Pt will be able to position herself to sleep comofrtably though to night w/o inc pain. 08/23-dec frequency of waking up through night STG Duration achieved Laminator Preforms Goal (LTG) Pt will be able to sit as long as needed without inc pain. 08/23-still very limited; no change 09/29-can sit about 10 min before pain starts LTG Duration 12/08 strength Short Term Goal (STG) Pt will be indep w/HEP for flexiblity, strength and posture 08/23-advancing as able STG Duration achieved advancing as able Laminator Preforms Goal (LTG) Pt will score at least 5/5 on all LE MMT B and at least 3/5 LPM and EFT to show improved stabiltiy to allow pt to return to her normal activities w/o pain. 08/23improved 09/29-much improved LTG Duration 12/08 JANE Impairment 13/50 Short Term Goal (STG) Pt will improve score to no greater than 7/50 to show improved functional ability 09/29-n/t STG Duration 10/01 Shelter Goal (LTG) Pt will improve score to no greater than 2/50 to show improved functional ability LTG Duration 12/08 Assessment Summary Assessment Pt had imrpoved ability to long sit, fwd flex and sit w/ less discomfort after coccyx mobs. She has significnat neural tension taht is likley limiting her positioning. Physical Therapy Plan Frequency and Duration Frequency of Treatment 1x/Week Duration of treatment (weeks) 10 Plan of Care Start Date 09/29/22 Plan of Care End Date 12/08/22 Next Visit Focus/Plan Next Note Type Treatment Note Next Visit Plan visceral work, cont to work innominate mobility (ext, add/ abd) , PNF for core facilitation, work lumbar flex (L3-4 fused so joints above and below)
--- NOTE | 2022-10-20 14:34 | PT.OTN ---
Current Diagnoses Intervertebral disc disorders with radiculopathy, lumbar region (10/20/22) Abnormal posture (10/20/22) Weakness (10/20/22) Physical Therapy Treatment Note PT-OP-A Visit Information Start: 08/01/22 17:48 Freq: Status: Active Protocol: Document 10/20/22 11:56 [facility] (Rec: 10/20/22 14:34 [facility] [id number]) Out-Patient Physical Therapy Visit Information Visit Information Visit Type Treatment Note Visit Start Time 12:47 Visit Stop Time 13:30 Total Visit Minutes 43 Visit Number 13/18 Number of ENGINEER TECHNICIAN Visits 0 PT-OP-B Current Condition Start: 08/01/22 17:48 Freq: Status: Active Protocol: Document 08/02/22 15:03 [facility] (Rec: 08/02/22 16:09 [facility] [id number]) Current Condition History of Current Condition Onset Date L3-4 TLIF 06/06 Current Complaints LBP History of Current Condition Pt reports back pain started Mar 18 and she had worked out and felt sore that day and took a few days off and it didn't get beter. She hasn't worked out now since Mar. She had a cyst on the inside of her spine and they had to remove the disc in order to remove the cyst in the ant. She now had TLIF of L3-4. A spacer was placed in the spine also She had uterine CA on 2016 and it was all contained on her uterus and had that removed at the time. Her appendix ruptured 09/2017 and had appendectomy. She had to go back to the ER d/t bowel blockage and abscess. She had an umbilical hernia in 02/2018 and they just did a stich and then d/t covid didn't get fixed until 08/22 since it didn 't work. Pt reports her back used to be very flexible in ext. She felt like she had too much mobility ant and post flexiblity. 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 Pt reprots typically her workouts would be [place] and walking her dog. 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 Pt reports surgery was very painful. said she was healing well and plan to follow up in 2 more months. She is to cont to limit bending, lifting (greater than 10lbs) and twisting. Plan will be to possibly clear that in 2 months. Pt reports she has been walking 5 miles but said she was walking too much so she is now doing 4 miles/day. she walks slowly. Pt reports after her last hernia surgery, she had a lot more unstable in her core. Pt was limited in working out d/t 6 weeks required to rest after surgery and then had flu for 6 weeks then COVID for 6 weeks. Pt reports after surgery was re-admitted d/t severe constipation that requird colonoscopy. Prior Treatments and Tests Tried PT prior to surgery but pt notes she had LBP w/R leg pain all the way down leg Treatment Goals Patient/Caregiver Goals Get back to [place], pick something off ground, sleep, sit extended, no pain w/ donning socks & shoes PT-OP-C Subjective Start: 08/01/22 17:48 Freq: Status: Active Protocol: Document 10/20/22 11:56 [facility] (Rec: 10/20/22 14:34 [facility] [id number]) OP-PT Subjective Patient Comments Patient Comments Pt reprots she was able to sit about 1 hour after last session. She drove to [place] and after about an hour was when she felt like she needed to get moving. PT-OP-D Balance Start: 08/01/22 17:48 Freq: Status: Active Protocol: Document 08/02/22 15:03 [facility] (Rec: 08/02/22 16:09 [facility] [id number]) Balance Tests Single Limb Standing Single Limb- Right >30sec w/lat r hip shear & L rot Single Limb- Left >30 sec w/lat left hip shear and R hip hike PT-OP-F Manual Assessment Start: 08/01/22 17:48 Freq: Status: Active Protocol: Document 08/02/22 15:03 [facility] (Rec: 08/02/22 16:09 [facility] [id number]) Manual Assessments Soft Tissue Assessment Soft Tissue Mobility Assessment QL & ES tight B PT-OP-G Mobility & Gait Start: 08/01/22 17:48 Freq: Status: Active Protocol: Document 08/02/22 15:03 [facility] (Rec: 08/02/22 16:09 [facility] [id number]) OP Gait Assessment Comments Gait Comments dec ant dep B; LLE occ adducts , dec post dep B PT-OP-J Posture/Palpation/Skin Start: 08/01/22 17:48 Freq: Status: Active Protocol: Document 09/29/22 12:49 [facility] (Rec: 09/29/22 15:16 [facility] [id number]) Posture Evaluation [facility] Postural Classification System [facility] Postural Classifications Vertical/Posterior Elbow Flexion Test 4 Lumbar Protective Mechanism Left AP 2 Lumbar Protective Mechanism Right AP 2 Lumbar Protective Mechanism Left PA 4 Lumbar Protective Mechanism Right PA 3 PT-OP-M Strength Start: 08/01/22 17:48 Freq: Status: Active Protocol: Document 09/29/22 12:49 [facility] (Rec: 09/29/22 15:16 [facility] [id number]) Hip Strength Hip Manual Muscle Testing Right Flexion (L2) 4 Good Extension (S1) 4- Good- Abduction 5 Normal Adduction 5 Normal External Rotation 5 Normal Internal Rotation 5 Normal Comments pain in back w/hp ext B Left Flexion (L2) 4+ Good+ Extension (S1) 4- Good- Abduction 4+ Good+ Adduction 5 Normal External Rotation 5 Normal Internal Rotation 5 Normal Comments dec core stability w/testing hip flex B Knee Strength Knee Manual Muscle Testing Right Flexion (S2) 5 Normal Extension (L3) 5 Normal Left Flexion (S2) 5 Normal Extension (L3) 5 Normal Ankle/Foot Strength Ankle and Foot Manual Muscle Testing Right Dorsiflexion (L4) 5 Normal Plantarflexion (S1) 5 Normal Left Dorsiflexion (L4) 5 Normal Plantarflexion (S1) 5 Normal Comments 20 heel raises B PT-OP-Q Treatments Start: 08/01/22 17:48 Freq: Status: Active Protocol: Document 10/20/22 11:56 [facility] (Rec: 10/20/22 14:34 [facility] [id number]) Therapeutic Exercises Standing Exercises bottoms up Standing Exercise Name w/hands on stool Side bilateral Reps/Minutes 3 min Comments improved flex Manual Therapy Treatment Soft Tissue Mobilization post Body Location ES & lumbar Comments MFR superficial, bony contors and ES rolling FM & cupping and plunger w/cat/cow HS Comments B rolling w/DKTC w/B HS active stretch R rolling w/SLR w/DF abdomen Comments 1. seated transverse colon FM 2. seated sm intestine FM 3. R to L supine w/B knee flex and slight rot of LEs scar Body Location spine Mobilization Type Myofascial Release Intensity/Depth Superficial Comments cat/cow & plunger PT-OP-T Assessment and Plan Start: 08/01/22 17:48 Freq: Status: Active Protocol: Document 10/20/22 11:56 [facility] (Rec: 10/20/22 14:34 [facility] [id number]) Physical Therapy Assessment Goals exercise Skilled Nursing Goal (LTG) Pt will be able to return to [place] exercise routines w/o inc pain. 08/23-started 6 min and felt ok 09/29-back to modified barre for 50 min 5-6 days a week LTG Duration 12/12 activities Impairment cannot sit >20min and pain w/ laying down Short Term Goal (STG) Pt will be able to position herself to sleep comofrtably though to night w/o inc pain. 08/23-dec frequency of waking up through night STG Duration achieved Skilled Nursing Goal (LTG) Pt will be able to sit as long as needed without inc pain. 08/23-still very limited; no change 09/29-can sit about 10 min before pain starts LTG Duration 12/08 strength Short Term Goal (STG) Pt will be indep w/HEP for flexiblity, strength and posture 08/23-advancing as able STG Duration achieved advancing as able Employee Relations Consultant Goal (LTG) Pt will score at least 5/5 on all LE MMT B and at least 3/5 LPM and EFT to show improved stabiltiy to allow pt to return to her normal activities w/o pain. 08/23improved 09/29-much improved LTG Duration 12/08 JANE Impairment 13/50 Short Term Goal (STG) Pt will improve score to no greater than 7/50 to show improved functional ability 09/29-n/t STG Duration 10/01 Skilled Nursing Goal (LTG) Pt will improve score to no greater than 2/50 to show improved functional ability LTG Duration 12/08 Assessment Summary Assessment Pt had improved flexion w/ manual treatment today and was able to bend fwd further. She has restriction in both HS, abdomen and lumbar spine that limit her. Physical Therapy Plan Frequency and Duration Frequency of Treatment 1x/Week Duration of treatment (weeks) 10 Plan of Care Start Date 09/29/22 Plan of Care End Date 12/08/22 Next Visit Focus/Plan Next Note Type Treatment Note Next Visit Plan cont to work on visceral mobility, check innominate ext , PNF facilitition into core, facilitation in sitting. ; cont to work lumbar flex ( above/bleow L3-4)
--- NOTE | 2022-10-27 15:51 | PT.OTN ---
Current Diagnoses Intervertebral disc disorders with radiculopathy, lumbar region (10/27/22) Abnormal posture (10/27/22) Weakness (10/27/22) Physical Therapy Treatment Note PT-OP-A Visit Information Start: 08/01/22 17:48 Freq: Status: Active Protocol: Document 10/27/22 12:48 [facility] (Rec: 10/27/22 15:51 [facility] [id number]) Out-Patient Physical Therapy Visit Information Visit Information Visit Type Treatment Note Visit Start Time 12:47 Visit Stop Time 13:32 Total Visit Minutes 45 Visit Number 14/18 Number of SHOVE UP Visits 0 PT-OP-B Current Condition Start: 08/01/22 17:48 Freq: Status: Active Protocol: Document 08/02/22 15:03 [facility] (Rec: 08/02/22 16:09 [facility] [id number]) Current Condition History of Current Condition Onset Date L3-4 TLIF 06/06 Current Complaints LBP History of Current Condition Pt reports back pain started Mar 18 and she had worked out and felt sore that day and took a few days off and it didn't get beter. She hasn't worked out now since Mar. She had a cyst on the inside of her spine and they had to remove the disc in order to remove the cyst in the ant. She now had TLIF of L3-4. A spacer was placed in the spine also She had uterine CA on 2016 and it was all contained on her uterus and had that removed at the time. Her appendix ruptured 09/2017 and had appendectomy. She had to go back to the ER d/t bowel blockage and abscess. She had an umbilical hernia in 02/2018 and they just did a stich and then d/t covid didn't get fixed until 08/22 since it didn 't work. Pt reports her back used to be very flexible in ext. She felt like she had too much mobility ant and post flexiblity. 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 Pt reprots typically her workouts would be [place] and walking her dog. 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 Pt reports surgery was very painful. said she was healing well and plan to follow up in 2 more months. She is to cont to limit bending, lifting (greater than 10lbs) and twisting. Plan will be to possibly clear that in 2 months. Pt reports she has been walking 5 miles but said she was walking too much so she is now doing 4 miles/day. she walks slowly. Pt reports after her last hernia surgery, she had a lot more unstable in her core. Pt was limited in working out d/t 6 weeks required to rest after surgery and then had flu for 6 weeks then COVID for 6 weeks. Pt reports after surgery was re-admitted d/t severe constipation that requird colonoscopy. Prior Treatments and Tests Tried PT prior to surgery but pt notes she had LBP w/R leg pain all the way down leg Treatment Goals Patient/Caregiver Goals Get back to barre, pick something off ground, sleep, sit extended, no pain w/ donning socks & shoes PT-OP-C Subjective Start: 08/01/22 17:48 Freq: Status: Active Protocol: Document 10/27/22 12:48 [facility] (Rec: 10/27/22 15:51 [facility] [id number]) OP-PT Subjective Patient Comments Patient Comments Pt reports she is improving but still unable to do all core work needed to demo w/ barre. Notes she still feels very tight in her back. PT-OP-D Balance Start: 08/01/22 17:48 Freq: Status: Active Protocol: Document 08/02/22 15:03 [facility] (Rec: 08/02/22 16:09 [facility] [id number]) Balance Tests Single Limb Standing Single Limb- Right >30sec w/lat r hip shear & L rot Single Limb- Left >30 sec w/lat left hip shear and R hip hike PT-OP-F Manual Assessment Start: 08/01/22 17:48 Freq: Status: Active Protocol: Document 08/02/22 15:03 [facility] (Rec: 08/02/22 16:09 [facility] [id number]) Manual Assessments Soft Tissue Assessment Soft Tissue Mobility Assessment QL & ES tight B PT-OP-G Mobility & Gait Start: 08/01/22 17:48 Freq: Status: Active Protocol: Document 08/02/22 15:03 [facility] (Rec: 08/02/22 16:09 [facility] [id number]) OP Gait Assessment Comments Gait Comments dec ant dep B; LLE occ adducts , dec post dep B PT-OP-J Posture/Palpation/Skin Start: 08/01/22 17:48 Freq: Status: Active Protocol: Document 09/29/22 12:49 [facility] (Rec: 09/29/22 15:16 [facility] [id number]) Posture Evaluation [facility] Postural Classification System [facility] Postural Classifications Vertical/Posterior Elbow Flexion Test 4 Lumbar Protective Mechanism Left AP 2 Lumbar Protective Mechanism Right AP 2 Lumbar Protective Mechanism Left PA 4 Lumbar Protective Mechanism Right PA 3 PT-OP-M Strength Start: 08/01/22 17:48 Freq: Status: Active Protocol: Document 09/29/22 12:49 [facility] (Rec: 09/29/22 15:16 [facility] [id number]) Hip Strength Hip Manual Muscle Testing Right Flexion (L2) 4 Good Extension (S1) 4- Good- Abduction 5 Normal Adduction 5 Normal External Rotation 5 Normal Internal Rotation 5 Normal Comments pain in back w/hp ext B Left Flexion (L2) 4+ Good+ Extension (S1) 4- Good- Abduction 4+ Good+ Adduction 5 Normal External Rotation 5 Normal Internal Rotation 5 Normal Comments dec core stability w/testing hip flex B Knee Strength Knee Manual Muscle Testing Right Flexion (S2) 5 Normal Extension (L3) 5 Normal Left Flexion (S2) 5 Normal Extension (L3) 5 Normal Ankle/Foot Strength Ankle and Foot Manual Muscle Testing Right Dorsiflexion (L4) 5 Normal Plantarflexion (S1) 5 Normal Left Dorsiflexion (L4) 5 Normal Plantarflexion (S1) 5 Normal Comments 20 heel raises B PT-OP-Q Treatments Start: 08/01/22 17:48 Freq: Status: Active Protocol: Document 10/27/22 12:48 [facility] (Rec: 10/27/22 15:51 [facility] [id number]) Gym Equipment Therapeutic Ball segmental crunches Ball Size/Color green Reps/Duration 10 Comments segmental roll ups Therapeutic Exercises Supine Exercises pelvic tilts Supine Exercise Name prop on elbows-cues comfortable range Reps/Minutes 10 roll up Supine Exercise Name crunch segmentally w/cues for chin tuck Side bilateral Reps/Minutes 15 Comments slow and controlled Standing Exercises hang Standing Exercise Name off edge of plinth Side bilateral Reps/Minutes 1 min hold x2 Manual Therapy Treatment Soft Tissue Mobilization post Body Location ES & lumbar Comments MFR superficial, bony contors and ES rolling FM & cupping and plunger w/cat/cow 2. fwd flex w/PT from about T7 down to sacrum STM x3 deep breathing in tight areas scar Body Location spine Mobilization Type Myofascial Release Intensity/Depth Superficial Comments cat/cow & plunger & cups Joint Mobilizations lumbar Comments T10-11, T11-12,T12-L1; L1-2 gapping FM w/cat cow PT-OP-T Assessment and Plan Start: 08/01/22 17:48 Freq: Status: Active Protocol: Document 10/27/22 12:48 [facility] (Rec: 10/27/22 15:51 [facility] [id number]) Physical Therapy Assessment Goals exercise Manager Inpatient Goal (LTG) Pt will be able to return to [place] exercise routines w/o inc pain. 08/23-started 6 min and felt ok 09/29-back to modified barre for 50 min 5-6 days a week LTG Duration 12/12 activities Impairment cannot sit >20min and pain w/ laying down Short Term Goal (STG) Pt will be able to position herself to sleep comofrtably though to night w/o inc pain. 08/23-dec frequency of waking up through night STG Duration achieved Manager Inpatient Goal (LTG) Pt will be able to sit as long as needed without inc pain. 08/23-still very limited; no change 09/29-can sit about 10 min before pain starts LTG Duration 12/08 strength Short Term Goal (STG) Pt will be indep w/HEP for flexiblity, strength and posture 08/23-advancing as able STG Duration achieved advancing as able Alf Goal (LTG) Pt will score at least 5/5 on all LE MMT B and at least 3/5 LPM and EFT to show improved stabiltiy to allow pt to return to her normal activities w/o pain. 08/23improved 09/29-much improved LTG Duration 12/08 JANE Impairment Short Term Goal (STG) Pt will improve score to no greater than 7/50 to show improved functional ability 09/29-n/t STG Duration 10/01 Alf Goal (LTG) Pt will improve score to no greater than 2/50 to show improved functional ability LTG Duration 12/08 Assessment Summary Assessment Pt did well w/exercises but has much less range than prior to surgery. Educated that this will cont to get better as she slowly works on them and to only add small bouts at home and gradually inc. She had improved flex after manual treatment. Physical Therapy Plan Frequency and Duration Frequency of Treatment 1x/Week Duration of treatment (weeks) 10 Plan of Care Start Date 09/29/22 Plan of Care End Date 12/08/22 Next Visit Focus/Plan Next Note Type Treatment Note Next Visit Plan work on flex ability (look at visceral, post spine, innominate & rib mobility R>L more limited), cont to facilitate deep core,make sure pelvic floor firing
--- NOTE | 2022-11-10 16:22 | PT.OTN ---
Current Diagnoses Intervertebral disc disorders with radiculopathy, lumbar region (11/10/22) Abnormal posture (11/10/22) Weakness (11/10/22) Physical Therapy Treatment Note PT-OP-A Visit Information Start: 08/01/22 17:48 Freq: Status: Active Protocol: Document 11/10/22 11:20 [facility] (Rec: 11/10/22 16:22 [facility] [id number]) Out-Patient Physical Therapy Visit Information Visit Information Visit Type Treatment Note Visit Start Time 11:20 Visit Stop Time 12:05 Total Visit Minutes 45 Visit Number 15/18 Number of CLASSIFICATION COUNSELOR Visits 0 PT-OP-B Current Condition Start: 08/01/22 17:48 Freq: Status: Active Protocol: Document 08/02/22 15:03 [facility] (Rec: 08/02/22 16:09 [facility] [id number]) Current Condition History of Current Condition Onset Date L3-4 TLIF 06/06 Current Complaints LBP History of Current Condition Pt reports back pain started Mar 18 and she had worked out and felt sore that day and took a few days off and it didn't get beter. She hasn't worked out now since Mar. She had a cyst on the inside of her spine and they had to remove the disc in order to remove the cyst in the ant. She now had TLIF of L3-4. A spacer was placed in the spine also She had uterine CA on 2016 and it was all contained on her uterus and had that removed at the time. Her appendix ruptured 09/2017 and had appendectomy. She had to go back to the ER d/t bowel blockage and abscess. She had an umbilical hernia in 02/2018 and they just did a stich and then d/t covid didn't get fixed until 08/22 since it didn 't work. Pt reports her back used to be very flexible in ext. She felt like she had too much mobility ant and post flexiblity. 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 Pt reprots typically her workouts would be [place] and walking her dog. 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 Pt reports surgery was very painful. said she was healing well and plan to follow up in 2 more months. She is to cont to limit bending, lifting (greater than 10lbs) and twisting. Plan will be to possibly clear that in 2 months. Pt reports she has been walking 5 miles but said she was walking too much so she is now doing 4 miles/day. she walks slowly. Pt reports after her last hernia surgery, she had a lot more unstable in her core. Pt was limited in working out d/t 6 weeks required to rest after surgery and then had flu for 6 weeks then COVID for 6 weeks. Pt reports after surgery was re-admitted d/t severe constipation that requird colonoscopy. Prior Treatments and Tests Tried PT prior to surgery but pt notes she had LBP w/R leg pain all the way down leg Treatment Goals Patient/Caregiver Goals Get back to barre, pick something off ground, sleep, sit extended, no pain w/ donning socks & shoes PT-OP-C Subjective Start: 08/01/22 17:48 Freq: Status: Active Protocol: Document 11/10/22 11:20 [facility] (Rec: 11/10/22 16:22 [facility] [id number]) OP-PT Subjective Patient Comments Patient Comments Stella continues to note that she is very tight in her low back and has difficulty with lumbar flexion due to tightness PT-OP-D Balance Start: 08/01/22 17:48 Freq: Status: Active Protocol: Document 08/02/22 15:03 [facility] (Rec: 08/02/22 16:09 [facility] [id number]) Balance Tests Single Limb Standing Single Limb- Right >30sec w/lat r hip shear & L rot Single Limb- Left >30 sec w/lat left hip shear and R hip hike PT-OP-F Manual Assessment Start: 08/01/22 17:48 Freq: Status: Active Protocol: Document 08/02/22 15:03 [facility] (Rec: 08/02/22 16:09 [facility] [id number]) Manual Assessments Soft Tissue Assessment Soft Tissue Mobility Assessment QL & ES tight B PT-OP-G Mobility & Gait Start: 08/01/22 17:48 Freq: Status: Active Protocol: Document 08/02/22 15:03 [facility] (Rec: 08/02/22 16:09 [facility] [id number]) OP Gait Assessment Comments Gait Comments dec ant dep B; LLE occ adducts , dec post dep B PT-OP-J Posture/Palpation/Skin Start: 08/01/22 17:48 Freq: Status: Active Protocol: Document 09/29/22 12:49 [facility] (Rec: 09/29/22 15:16 [facility] [id number]) Posture Evaluation [facility] Postural Classification System [facility] Postural Classifications Vertical/Posterior Elbow Flexion Test 4 Lumbar Protective Mechanism Left AP 2 Lumbar Protective Mechanism Right AP 2 Lumbar Protective Mechanism Left PA 4 Lumbar Protective Mechanism Right PA 3 PT-OP-M Strength Start: 08/01/22 17:48 Freq: Status: Active Protocol: Document 09/29/22 12:49 [facility] (Rec: 09/29/22 15:16 [facility] [id number]) Hip Strength Hip Manual Muscle Testing Right Flexion (L2) 4 Good Extension (S1) 4- Good- Abduction 5 Normal Adduction 5 Normal External Rotation 5 Normal Internal Rotation 5 Normal Comments pain in back w/hp ext B Left Flexion (L2) 4+ Good+ Extension (S1) 4- Good- Abduction 4+ Good+ Adduction 5 Normal External Rotation 5 Normal Internal Rotation 5 Normal Comments dec core stability w/testing hip flex B Knee Strength Knee Manual Muscle Testing Right Flexion (S2) 5 Normal Extension (L3) 5 Normal Left Flexion (S2) 5 Normal Extension (L3) 5 Normal Ankle/Foot Strength Ankle and Foot Manual Muscle Testing Right Dorsiflexion (L4) 5 Normal Plantarflexion (S1) 5 Normal Left Dorsiflexion (L4) 5 Normal Plantarflexion (S1) 5 Normal Comments 20 heel raises B PT-OP-Q Treatments Start: 08/01/22 17:48 Freq: Status: Active Protocol: Document 11/10/22 11:20 [facility] (Rec: 11/10/22 16:22 [facility] [id number]) Manual Therapy Treatment Soft Tissue Mobilization quadratus lumborum release on the left Comments pt in right sidelying to release left quadratus lumborum parapsinal MFR in modified yosef pose Comments pt propped with pillows under ischium and for arm support, worked on MFR of the left lumbar paraspinals in flexed position abdomen Comments right sidelying position, MFR done on left obliques PT-OP-T Assessment and Plan Start: 08/01/22 17:48 Freq: Status: Active Protocol: Document 11/10/22 11:20 [facility] (Rec: 08/10/23 16:22 [facility] [id number]) Physical Therapy Assessment Assessment Summary Assessment Stella presents with tightness in the lumbodorsal fascia, lumbar paraspinals, and QL on the left >R. I tried MFR in a flexed position today as well as worked in sidelying both on the QL as well as the obliques. Physical Therapy Plan Frequency and Duration Frequency of Treatment 1x/Week Duration of treatment (weeks) 10 Plan of Care Start Date 09/29/22 Plan of Care End Date 12/08/22 Therapeutic Interventions Therapeutic Interventions Balance Training,Gait Training ,Home Exercise Program,Joint Mobilizations,Manual Therapy, Neuromuscular Re-education, Patient/Caregiver Education, Self-Care/Home Management,Soft Tissue Mobilization,Taping, Therapeutic Activities, Therapeutic Exercises Modalities Cold Pack/Ice Massage,Electric Stimulation,Ultrasound Next Visit Focus/Plan Next Note Type Treatment Note Next Visit Plan work on flex ability (look at visceral, post spine, innominate & rib mobility R>L more limited), cont to facilitate deep core,make sure pelvic floor firing
--- NOTE | 2022-11-17 14:22 | PT.OTN ---
Current Diagnoses Intervertebral disc disorders with radiculopathy, lumbar region (11/17/22) Abnormal posture (11/17/22) Weakness (11/17/22) Physical Therapy Treatment Note PT-OP-A Visit Information Start: 08/01/22 17:48 Freq: Status: Active Protocol: Document 11/17/22 09:30 [facility] (Rec: 11/17/22 11:29 [facility] [id number]) Out-Patient Physical Therapy Visit Information Visit Information Visit Type Treatment Note Visit Start Time 09:30 Visit Stop Time 10:15 Total Visit Minutes 45 Visit Number 16/18 Number of VENDING MACHINE FILLER Visits 0 PT-OP-B Current Condition Start: 08/01/22 17:48 Freq: Status: Active Protocol: Document 08/02/22 15:03 [facility] (Rec: 08/02/22 16:09 [facility] [id number]) Current Condition History of Current Condition Onset Date L3-4 TLIF 06/06 Current Complaints LBP History of Current Condition Pt reports back pain started Mar 18 and she had worked out and felt sore that day and took a few days off and it didn't get beter. She hasn't worked out now since Mar. She had a cyst on the inside of her spine and they had to remove the disc in order to remove the cyst in the ant. She now had TLIF of L3-4. A spacer was placed in the spine also She had uterine CA on 2016 and it was all contained on her uterus and had that removed at the time. Her appendix ruptured 09/2017 and had appendectomy. She had to go back to the ER d/t bowel blockage and abscess. She had an umbilical hernia in 02/2018 and they just did a stich and then d/t covid didn't get fixed until 08/22 since it didn 't work. Pt reports her back used to be very flexible in ext. She felt like she had too much mobility ant and post flexiblity. 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 Pt reprots typically her workouts would be [place] and walking her dog. 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 Pt reports surgery was very painful. MD said she was healing well and plan to follow up in 2 more months. She is to cont to limit bending, lifting (greater than 10lbs) and twisting. Plan will be to possibly clear that in 2 months. Pt reports she has been walking 5 miles but said she was walking too much so she is now doing 4 miles/day. she walks slowly. Pt reports after her last hernia surgery, she had a lot more unstable in her core. Pt was limited in working out d/t 6 weeks required to rest after surgery and then had flu for 6 weeks then COVID for 6 weeks. Pt reports after surgery was re-admitted d/t severe constipation that requird colonoscopy. Prior Treatments and Tests Tried PT prior to surgery but pt notes she had LBP w/R leg pain all the way down leg Treatment Goals Patient/Caregiver Goals Get back to barre, pick something off ground, sleep, sit extended, no pain w/ donning socks & shoes PT-OP-C Subjective Start: 08/01/22 17:48 Freq: Status: Active Protocol: Document 11/17/22 09:30 [facility] (Rec: 11/17/22 11:29 [facility] [id number]) OP-PT Subjective Patient Comments Patient Comments Stella notes she did feel that after last visit she gained some mobility but gains are small and slow. She reports she can actually feel her hip flexors stretching now when doing warrior 1 pose since she is more stable in her back Patient Reported Progress Improving PT-OP-D Balance Start: 08/01/22 17:48 Freq: Status: Active Protocol: Document 08/02/22 15:03 [facility] (Rec: 08/02/22 16:09 [facility] [id number]) Balance Tests Single Limb Standing Single Limb- Right >30sec w/lat r hip shear & L rot Single Limb- Left >30 sec w/lat left hip shear and R hip hike PT-OP-F Manual Assessment Start: 08/01/22 17:48 Freq: Status: Active Protocol: Document 08/02/22 15:03 [facility] (Rec: 08/02/22 16:09 [facility] [id number]) Manual Assessments Soft Tissue Assessment Soft Tissue Mobility Assessment QL & ES tight B PT-OP-G Mobility & Gait Start: 08/01/22 17:48 Freq: Status: Active Protocol: Document 08/02/22 15:03 [facility] (Rec: 08/02/22 16:09 [facility] [id number]) OP Gait Assessment Comments Gait Comments dec ant dep B; LLE occ adducts , dec post dep B PT-OP-J Posture/Palpation/Skin Start: 08/01/22 17:48 Freq: Status: Active Protocol: Document 09/29/22 12:49 [facility] (Rec: 09/29/22 15:16 [facility] [id number]) Posture Evaluation [facility] Postural Classification System [facility] Postural Classifications Vertical/Posterior Elbow Flexion Test 4 Lumbar Protective Mechanism Left AP 2 Lumbar Protective Mechanism Right AP 2 Lumbar Protective Mechanism Left PA 4 Lumbar Protective Mechanism Right PA 3 PT-OP-M Strength Start: 08/01/22 17:48 Freq: Status: Active Protocol: Document 09/29/22 12:49 [facility] (Rec: 09/29/22 15:16 [facility] [id number]) Hip Strength Hip Manual Muscle Testing Right Flexion (L2) 4 Good Extension (S1) 4- Good- Abduction 5 Normal Adduction 5 Normal External Rotation 5 Normal Internal Rotation 5 Normal Comments pain in back w/hp ext B Left Flexion (L2) 4+ Good+ Extension (S1) 4- Good- Abduction 4+ Good+ Adduction 5 Normal External Rotation 5 Normal Internal Rotation 5 Normal Comments dec core stability w/testing hip flex B Knee Strength Knee Manual Muscle Testing Right Flexion (S2) 5 Normal Extension (L3) 5 Normal Left Flexion (S2) 5 Normal Extension (L3) 5 Normal Ankle/Foot Strength Ankle and Foot Manual Muscle Testing Right Dorsiflexion (L4) 5 Normal Plantarflexion (S1) 5 Normal Left Dorsiflexion (L4) 5 Normal Plantarflexion (S1) 5 Normal Comments 20 heel raises B PT-OP-Q Treatments Start: 08/01/22 17:48 Freq: Status: Active Protocol: Document 11/17/22 09:30 [facility] (Rec: 11/17/22 14:19 [facility] [id number]) Manual Therapy Treatment Soft Tissue Mobilization quadratus lumborum release on the left Comments pt in right sidelying to release left quadratus lumborum parapsinal MFR in modified yosef pose Comments pt propped with pillows under ischium and for arm support, worked on MFR of the left lumbar paraspinals in flexed position. Gusha was used today for fascial release abdomen Comments worked in both right and left sidelying positions for manual release of the obliques PT-OP-T Assessment and Plan Start: 08/01/22 17:48 Freq: Status: Active Protocol: Document 11/17/22 09:30 [facility] (Rec: 11/17/22 14:19 [facility] [id number]) Physical Therapy Assessment Assessment Summary Assessment Stella tolerated use of the gusha for instrument assist MFR of the paraspinals, and QL . Her skin turns red very quickly so gusha was only used for part of the treament. She continues to work hard on her home program for core stabilization and flexibility exercises Physical Therapy Plan Frequency and Duration Frequency of Treatment 1x/Week Duration of treatment (weeks) 10 Plan of Care Start Date 09/29/22 Plan of Care End Date 12/08/22 Therapeutic Interventions Therapeutic Interventions Balance Training,Gait Training ,Home Exercise Program,Joint Mobilizations,Manual Therapy, Neuromuscular Re-education, Patient/Caregiver Education, Self-Care/Home Management,Soft Tissue Mobilization,Taping, Therapeutic Activities, Therapeutic Exercises Modalities Cold Pack/Ice Massage,Electric Stimulation,Ultrasound Next Visit Focus/Plan Next Note Type Treatment Note Next Visit Plan have pt do her functional tests and measures for evicore form to request additional visits
--- NOTE | 2022-12-01 13:34 | PT.OTN ---
Current Diagnoses Intervertebral disc disorders with radiculopathy, lumbar region (12/01/22) Abnormal posture (12/01/22) Weakness (12/01/22) Physical Therapy Treatment Note PT-OP-A Visit Information Start: 08/01/22 17:48 Freq: Status: Active Protocol: Document 12/01/22 11:24 [facility] (Rec: 12/01/22 13:34 [facility] [id number]) Out-Patient Physical Therapy Visit Information Visit Information Visit Type Progress Note Visit Start Time 12:17 Visit Stop Time 13:17 Total Visit Minutes 60 Visit Number 17/18 Number of WARD AIDE Visits 0 PT-OP-B Current Condition Start: 08/01/22 17:48 Freq: Status: Active Protocol: Document 08/02/22 15:03 [facility] (Rec: 08/02/22 16:09 [facility] [id number]) Current Condition History of Current Condition Onset Date L3-4 TLIF 06/06 Current Complaints LBP History of Current Condition Pt reports back pain started Mar 18 and she had worked out and felt sore that day and took a few days off and it didn't get beter. She hasn't worked out now since Mar. She had a cyst on the inside of her spine and they had to remove the disc in order to remove the cyst in the ant. She now had TLIF of L3-4. A spacer was placed in the spine also She had uterine CA on 2016 and it was all contained on her uterus and had that removed at the time. Her appendix ruptured 09/2017 and had appendectomy. She had to go back to the ER d/t bowel blockage and abscess. She had an umbilical hernia in 02/2018 and they just did a stich and then d/t covid didn't get fixed until 08/22 since it didn 't work. Pt reports her back used to be very flexible in ext. She felt like she had too much mobility ant and post flexiblity. 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 Pt reprots typically her workouts would be [employer] and walking her dog. 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 Pt reports surgery was very painful. said she was healing well and plan to follow up in 2 more months. She is to cont to limit bending, lifting (greater than 10lbs) and twisting. Plan will be to possibly clear that in 2 months. Pt reports she has been walking 5 miles but said she was walking too much so she is now doing 4 miles/day. she walks slowly. Pt reports after her last hernia surgery, she had a lot more unstable in her core. Pt was limited in working out d/t 6 weeks required to rest after surgery and then had flu for 6 weeks then COVID for 6 weeks. Pt reports after surgery was re-admitted d/t severe constipation that requird colonoscopy. 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 PT-OP-D Balance Start: 08/01/22 17:48 Freq: Status: Active Protocol: Document 08/02/22 15:03 [facility] (Rec: 08/02/22 16:09 [facility] [id number]) Balance Tests Single Limb Standing Single Limb- Right >30sec w/lat r hip shear & L rot Single Limb- Left >30 sec w/lat left hip shear and R hip hike PT-OP-F Manual Assessment Start: 08/01/22 17:48 Freq: Status: Active Protocol: Document 08/02/22 15:03 [facility] (Rec: 08/02/22 16:09 [facility] [id number]) Manual Assessments Soft Tissue Assessment Soft Tissue Mobility Assessment QL & ES tight B PT-OP-G Mobility & Gait Start: 08/01/22 17:48 Freq: Status: Active Protocol: Document 08/02/22 15:03 [facility] (Rec: 08/02/22 16:09 [facility] [id number]) OP Gait Assessment Comments Gait Comments dec ant dep B; LLE occ adducts , dec post dep B PT-OP-J Posture/Palpation/Skin Start: 08/01/22 17:48 Freq: Status: Active Protocol: Document 12/01/22 11:24 [facility] (Rec: 12/01/22 13:34 [facility] [id number]) Posture Evaluation [facility] Postural Classification System Vertebral Compression Test 4 Elbow Flexion Test 3 Lumbar Protective Mechanism Left AP 1 Lumbar Protective Mechanism Right AP 3 Lumbar Protective Mechanism Left PA 4 Lumbar Protective Mechanism Right PA 4 Leg Swing Left Hard End Feel,Limited Comments Posture Comments no R nutation PT-OP-K Range of Motion Start: 08/01/22 17:48 Freq: Status: Active Protocol: Document 12/01/22 11:24 [facility] (Rec: 12/01/22 13:34 [facility] [id number]) Lumbar Spine Range of Motion Lumbar Spine Active Percentage Flexion 55 Extension 50 Rotation Left 85 Rotation Right 100 Lateral Flexion Left 60 Lateral Flexion Right 90 Comments passive standing rot; feels unstable w/ext; w/flex 70% from HS and 30% from spine H& I testing: pt has equal ROM on R w/flex and ext quadrants but is more limited w/flex and ext quadrant when starting w/flex or ext indicating possible instability PT-OP-M Strength Start: 08/01/22 17:48 Freq: Status: Active Protocol: Document 12/01/22 11:24 [facility] (Rec: 12/01/22 13:34 [facility] [id number]) Hip Strength Hip Manual Muscle Testing Right Flexion (L2) 4 Good Extension (S1) 4+ Good+ Abduction 5 Normal Adduction 5 Normal External Rotation 5 Normal Internal Rotation 5 Normal Comments pain in back w/hip ext B Left Flexion (L2) 4+ Good+ Extension (S1) 4 Good Abduction 5 Normal Adduction 5 Normal External Rotation 5 Normal Internal Rotation 5 Normal Comments dec core stability w/testing hip flex B Knee Strength Knee Manual Muscle Testing Right Flexion (S2) 5 Normal Extension (L3) 5 Normal Left Flexion (S2) 5 Normal Extension (L3) 5 Normal Ankle/Foot Strength Ankle and Foot Manual Muscle Testing Right Dorsiflexion (L4) 5 Normal Plantarflexion (S1) 5 Normal Left Dorsiflexion (L4) 5 Normal Plantarflexion (S1) 5 Normal Comments 20 heel raises B PT-OP-Q Treatments Start: 05/01/23 17:48 Freq: Status: Active Protocol: Document 12/01/22 11:24 [facility] (Rec: 12/01/22 13:34 [facility] [id number]) Manual Therapy Treatment Soft Tissue Mobilization MFR Body Location lumbar spine Mobilization Type Rolling Intensity/Depth Moderate Body Position Sitting Joint Mobilizations sacrum Comments R nutation FM prone w/1/2foam rolls to block pevlis lumbar Comments down glide L5 L FM innominate Comments Ext individually in [place]zamb[place] position FM 2. PA R seated FM w/ext 3. PT-OP-T Assessment and Plan Start: 08/01/22 17:48 Freq: Status: Active Protocol: Document 12/01/22 11:24 [facility] (Rec: 12/01/22 13:34 [facility] [id number]) Physical Therapy Assessment Goals Long sit Halfway Goal (LTG) Pt will be able to long sit for work w/o inc pain LTG Duration 02/03/23 UE Impairment Pt has weakness in LUE compared to R when lifting and notices she has to rotate spine to L to keep arm neutral . Plant Utility Person Goal (LTG) Pt will be able to lift LUE straight in front of her w/o corresponding rotation. LTG Duration 02/03/23 exercise Plant Utility Person Goal (LTG) Pt will be able to return to [employer] exercise routines w/o inc pain. 08/23-started 6 min and felt ok 09/29-back to modified barre for 50 min 5-6 days a week 12/01-can do all but long sit LTG Duration 02/03 activities Impairment cannot sit >20min and pain w/ laying down Short Term Goal (STG) Pt will be able to position herself to sleep comofrtably though to night w/o inc pain. 08/23-dec frequency of waking up through night STG Duration achieved Halfway Goal (LTG) Pt will be able to sit as long as needed without inc pain. 08/23-still very limited; no change 09/29-can sit about 10 min before pain starts 12/01-pt can sit 25 min; did 2 one hour flights and propped herself but had 7/10 by end of each 1 hour flight LTG Duration 02/03/23 strength Short Term Goal (STG) Pt will be indep w/HEP for flexiblity, strength and posture 08/23-advancing as able STG Duration achieved advancing as able Plant Utility Person Goal (LTG) Pt will score at least 5/5 on all LE MMT B and at least 3/5 LPM and EFT to show improved stabiltiy to allow pt to return to her normal activities w/o pain. 08/23improved 09/29-much improved 12/01-cont improvement but still limited w/flex and AP LPM & pain w/ext LTG Duration 02/03/23 JANE Impairment Short Term Goal (STG) Pt will improve score to no greater than 7/50 to show improved functional ability 09/29-n/t 12/01- STG Duration 01/01 Halfway Goal (LTG) Pt will improve score to no greater than 2/50 to show improved functional ability LTG Duration 02/03/23 Assessment Summary Assessment Pt is making excellent progress w/PT but does still have positive ext sit B and has limit in ability to long sit which is required for her work. She also still has signifiacnt difficulty w/ sitting greater than 25 min and had a lot of trouble when had to sit for an hour for a flight. Pt is doing well with standing, walking and other daily activiteis, but does still have limited ROM. Pt was only cleared about 6 weeks ago to slowly and gently start to work on ROM. 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 Cont PT to work on improving sitting tolerance and ROM Physical Therapy Plan Frequency and Duration Frequency of Treatment 1x/Week Duration of treatment (weeks) 8 Plan of Care Start Date 12/01/22 Plan of Care End Date 02/03/23 Therapeutic Interventions Therapeutic Interventions Balance Training,Gait Training ,Home Exercise Program,Joint Mobilizations,Manual Therapy, Neuromuscular Re-education, Patient/Caregiver Education, Self-Care/Home Management,Soft Tissue Mobilization,Taping, Therapeutic Activities, Therapeutic Exercises Modalities Cold Pack/Ice Massage,Electric Stimulation,Ultrasound Next Visit Focus/Plan Next Note Type Treatment Note Next Visit Plan WB coccyx and ischial tubs w/ neural tension; stress testing flex/ext more limited w/going into SB/rot L; further seated lumbar facet mobility (except L3-4 at fusion)
--- NOTE | 2022-12-01 13:34 | PT.OPPOC ---
Physical, Occupational & Speech Therapy At [facility] Current Diagnoses Intervertebral disc disorders with radiculopathy, lumbar region (12/01/22) Abnormal posture (12/01/22) Weakness (12/01/22) Visit Care Team Role Provider Type Beena Yusuf ND Family Provider Non-Staff Primary Care Provider Specialty: Naturopathy Address: [address], [address], [place], [address] Email: Iván Duke MD Attending Provider Physician Referring Provider Specialty: Orthopedics Orthopedic Surgery Address: [address] [place] [address], [place], [address] Email: [email or web address] Plan Of Care PT-OP-T Assessment and Plan Start: 08/01/22 17:48 Freq: Status: Active Protocol: Document 12/01/22 11:24 [facility] (Rec: 12/01/22 13:34 [facility] [id number]) Physical Therapy Assessment Goals Long sit Mortgage Sales Manager Goal (LTG) Pt will be able to long sit for work w/o inc pain LTG Duration 02/03/23 UE Impairment Pt has weakness in LUE compared to R when lifting and notices she has to rotate spine to L to keep arm neutral . Long-Term Goal (LTG) Pt will be able to lift LUE straight in front of her w/o corresponding rotation. LTG Duration 02/03/23 exercise Mortgage Sales Manager Goal (LTG) Pt will be able to return to [employer] exercise routines w/o inc pain. 08/23-started 6 min and felt ok 09/29-back to modified barre for 50 min 5-6 days a week 12/01-can do all but long sit LTG Duration 02/03 activities Impairment cannot sit >20min and pain w/ laying down Short Term Goal (STG) Pt will be able to position herself to sleep comofrtably though to night w/o inc pain. 08/23-dec frequency of waking up through night STG Duration achieved Long-Term Goal (LTG) Pt will be able to sit as long as needed without inc pain. 08/23-still very limited; no change 09/29-can sit about 10 min before pain starts 12/01-pt can sit 25 min; did 2 one hour flights and propped herself but had 7/10 by end of each 1 hour flight LTG Duration 02/03/23 strength Short Term Goal (STG) Pt will be indep w/HEP for flexiblity, strength and posture 08/23-advancing as able STG Duration achieved advancing as able Mortgage Sales Manager Goal (LTG) Pt will score at least 5/5 on all LE MMT B and at least 3/5 LPM and EFT to show improved stabiltiy to allow pt to return to her normal activities w/o pain. 08/23improved 09/29-much improved 12/01-cont improvement but still limited w/flex and AP LPM & pain w/ext LTG Duration 02/03/23 JANE Impairment 50 Short Term Goal (STG) Pt will improve score to no greater than 7/50 to show improved functional ability 09/29-n/t 12/01- STG Duration 01/01 Long-Term Goal (LTG) Pt will improve score to no greater than 2/50 to show improved functional ability LTG Duration 02/03/23 Assessment Summary Assessment Pt is making excellent progress w/PT but does still have positive ext sit B and has limit in ability to long sit which is required for her work. She also still has signifiacnt difficulty w/ sitting greater than 25 min and had a lot of trouble when had to sit for an hour for a flight. Pt is doing well with standing, walking and other daily activiteis, but does still have limited ROM. Pt was only cleared about 6 weeks ago to slowly and gently start to work on ROM. 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 Cont PT to work on improving sitting tolerance and ROM Physical Therapy Plan Frequency and Duration Frequency of Treatment 1x/Week Duration of treatment (weeks) 8 Plan of Care Start Date 12/01/22 Plan of Care End Date 02/03/23 Therapeutic Interventions Therapeutic Interventions Balance Training,Gait Training ,Home Exercise Program,Joint Mobilizations,Manual Therapy, Neuromuscular Re-education, Patient/Caregiver Education, Self-Care/Home Management,Soft Tissue Mobilization,Taping, Therapeutic Activities, Therapeutic Exercises Modalities Cold Pack/Ice Massage,Electric Stimulation,Ultrasound Next Visit Focus/Plan Next Note Type Treatment Note Next Visit Plan WB coccyx and ischial tubs w/ neural tension; stress testing flex/ext more limited w/going into SB/rot L; further seated lumbar facet mobility (except L3-4 at fusion) Plan of Care Dates Plan of Care Start Date 12/01/22 Plan of Care End Date 02/03/23 Electronically Signed by: Precious Castaneda, PT 12/01/22 2179 If you are in agreement with this Plan of Care, please return a signed and dated copy. I have reviewed this Plan of Care and certify that the skilled therapy services above are required to meet the patient?s needs. Physician Signature Date Printed Name and Credentials Clinical Instructor Signature Printed Name and Credentials
--- NOTE | 2022-12-19 14:52 | PT.OTN ---
Current Diagnoses Intervertebral disc disorders with radiculopathy, lumbar region (12/19/22) Abnormal posture (12/19/22) Weakness (12/19/22) Physical Therapy Treatment Note PT-OP-A Visit Information Start: 08/01/22 17:48 Freq: Status: Active Protocol: Document 12/19/22 11:30 [facility] (Rec: 12/19/22 14:52 [facility] [id number]) Out-Patient Physical Therapy Visit Information Visit Information Visit Type Treatment Note Visit Start Time 11:32 Visit Stop Time 12:17 Total Visit Minutes 45 Visit Number Number of COMPLAINT EVALUATION SUPERVISOR Visits 0 PT-OP-B Current Condition Start: 08/01/22 17:48 Freq: Status: Active Protocol: Document 08/02/22 15:03 [facility] (Rec: 08/02/22 16:09 [facility] [id number]) Current Condition History of Current Condition Onset Date L3-4 TLIF 06/06 Current Complaints LBP History of Current Condition Pt reports back pain started Mar 18 and she had worked out and felt sore that day and took a few days off and it didn't get beter. She hasn't worked out now since Mar. She had a cyst on the inside of her spine and they had to remove the disc in order to remove the cyst in the ant. She now had TLIF of L3-4. A spacer was placed in the spine also She had uterine CA on 2016 and it was all contained on her uterus and had that removed at the time. Her appendix ruptured 09/2017 and had appendectomy. She had to go back to the ER d/t bowel blockage and abscess. She had an umbilical hernia in 02/2018 and they just did a stich and then d/t covid didn't get fixed until 08/22 since it didn 't work. Pt reports her back used to be very flexible in ext. She felt like she had too much mobility ant and post flexiblity. 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 Pt reprots typically her workouts would be [place] and walking her dog. 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 Pt reports surgery was very painful. said she was healing well and plan to follow up in 2 more months. She is to cont to limit bending, lifting (greater than 10lbs) and twisting. Plan will be to possibly clear that in 2 months. Pt reports she has been walking 5 miles but said she was walking too much so she is now doing 4 miles/day. she walks slowly. Pt reports after her last hernia surgery, she had a lot more unstable in her core. Pt was limited in working out d/t 6 weeks required to rest after surgery and then had flu for 6 weeks then COVID for 6 weeks. Pt reports after surgery was re-admitted d/t severe constipation that requird colonoscopy. Prior Treatments and Tests Tried PT prior to surgery but pt notes she had LBP w/R leg pain all the way down leg Treatment Goals Patient/Caregiver Goals Get back to barre, pick something off ground, sleep, sit extended, no pain w/ donning socks & shoes PT-OP-C Subjective Start: 08/01/22 17:48 Freq: Status: Active Protocol: Document 12/19/22 11:30 [facility] (Rec: 12/19/22 14:52 [facility] [id number]) OP-PT Subjective Patient Comments Patient Comments Pt reports she has been stretching into comfortable range. She still feels most limited by sitting. Sees her back surgeon next week. PT-OP-D Balance Start: 08/01/22 17:48 Freq: Status: Active Protocol: Document 08/02/22 15:03 [facility] (Rec: 08/02/22 16:09 [facility] [id number]) Balance Tests Single Limb Standing Single Limb- Right >30sec w/lat r hip shear & L rot Single Limb- Left >30 sec w/lat left hip shear and R hip hike PT-OP-F Manual Assessment Start: 08/01/22 17:48 Freq: Status: Active Protocol: Document 08/02/22 15:03 [facility] (Rec: 08/02/22 16:09 [facility] [id number]) Manual Assessments Soft Tissue Assessment Soft Tissue Mobility Assessment QL & ES tight B PT-OP-G Mobility & Gait Start: 08/01/22 17:48 Freq: Status: Active Protocol: Document 08/02/22 15:03 [facility] (Rec: 08/02/22 16:09 [facility] [id number]) OP Gait Assessment Comments Gait Comments dec ant dep B; LLE occ adducts , dec post dep B PT-OP-J Posture/Palpation/Skin Start: 08/01/22 17:48 Freq: Status: Active Protocol: Document 12/01/22 11:24 [facility] (Rec: 12/01/22 13:34 [facility] [id number]) Posture Evaluation [facility] Postural Classification System Vertebral Compression Test 4 Elbow Flexion Test 3 Lumbar Protective Mechanism Left AP 1 Lumbar Protective Mechanism Right AP 3 Lumbar Protective Mechanism Left PA 4 Lumbar Protective Mechanism Right PA 4 Leg Swing Left Hard End Feel,Limited Comments Posture Comments no R nutation PT-OP-K Range of Motion Start: 08/01/22 17:48 Freq: Status: Active Protocol: Document 12/01/22 11:24 [facility] (Rec: 12/01/22 13:34 [facility] [id number]) Lumbar Spine Range of Motion Lumbar Spine Active Percentage Flexion 55 Extension 50 Rotation Left 85 Rotation Right 100 Lateral Flexion Left 60 Lateral Flexion Right 90 Comments passive standing rot; feels unstable w/ext; w/flex 70% from HS and 30% from spine H& I testing: pt has equal ROM on R w/flex and ext quadrants but is more limited w/flex and ext quadrant when starting w/flex or ext indicating possible instability PT-OP-M Strength Start: 08/01/22 17:48 Freq: Status: Active Protocol: Document 12/01/22 11:24 [facility] (Rec: 12/01/22 13:34 [facility] [id number]) Hip Strength Hip Manual Muscle Testing Right Flexion (L2) 4 Good Extension (S1) 4+ Good+ Abduction 5 Normal Adduction 5 Normal External Rotation 5 Normal Internal Rotation 5 Normal Comments pain in back w/hip ext B Left Flexion (L2) 4+ Good+ Extension (S1) 4 Good Abduction 5 Normal Adduction 5 Normal External Rotation 5 Normal Internal Rotation 5 Normal Comments dec core stability w/testing hip flex B Knee Strength Knee Manual Muscle Testing Right Flexion (S2) 5 Normal Extension (L3) 5 Normal Left Flexion (S2) 5 Normal Extension (L3) 5 Normal Ankle/Foot Strength Ankle and Foot Manual Muscle Testing Right Dorsiflexion (L4) 5 Normal Plantarflexion (S1) 5 Normal Left Dorsiflexion (L4) 5 Normal Plantarflexion (S1) 5 Normal Comments 20 heel raises B PT-OP-Q Treatments Start: 08/01/22 17:48 Freq: Status: Active Protocol: Document 12/19/22 11:30 [facility] (Rec: 12/19/22 14:52 [facility] [id number]) Manual Therapy Treatment Soft Tissue Mobilization MFR Body Location thoracolumbar Mobilization Type Sustained Pressure Intensity/Depth sup to mod Body Position sit Comments w/flex/ext scar Body Location spine Mobilization Type Myofascial Release Intensity/Depth Superficial Comments seated flex/ext Joint Mobilizations coccyx Comments distraction on R side,UPA R prone FM and R to L SB FM in s /l w/progression to w/alt LE SLR then seated w/slump position L -much more tension w/neck flexed innominate Comments R ischium abd FM seated PT-OP-T Assessment and Plan Start: 08/01/22 17:48 Freq: Status: Active Protocol: Document 12/19/22 11:30 [facility] (Rec: 12/19/22 14:52 [facility] [id number]) Physical Therapy Assessment Goals Long sit Golf Ball Cover Treater Goal (LTG) Pt will be able to long sit for work w/o inc pain LTG Duration 02/03/23 UE Impairment Pt has weakness in LUE compared to R when lifting and notices she has to rotate spine to L to keep arm neutral . Penitentiary Goal (LTG) Pt will be able to lift LUE straight in front of her w/o corresponding rotation. LTG Duration 02/03/23 exercise Golf Ball Cover Treater Goal (LTG) Pt will be able to return to [place] exercise routines w/o inc pain. 08/23-started 6 min and felt ok 09/29-back to modified barre for 50 min 5-6 days a week 12/01-can do all but long sit LTG Duration 02/03 activities Impairment cannot sit >20min and pain w/ laying down Short Term Goal (STG) Pt will be able to position herself to sleep comofrtably though to night w/o inc pain. 08/23-dec frequency of waking up through night STG Duration achieved Penitentiary Goal (LTG) Pt will be able to sit as long as needed without inc pain. 08/23-still very limited; no change 09/29-can sit about 10 min before pain starts 12/01-pt can sit 25 min; did 2 one hour flights and propped herself but had 7/10 by end of each 1 hour flight LTG Duration 02/03/23 strength Short Term Goal (STG) Pt will be indep w/HEP for flexiblity, strength and posture 08/23-advancing as able STG Duration achieved advancing as able Penitentiary Goal (LTG) Pt will score at least 5/5 on all LE MMT B and at least 3/5 LPM and EFT to show improved stabiltiy to allow pt to return to her normal activities w/o pain. 08/23improved 09/29-much improved 12/01-cont improvement but still limited w/flex and AP LPM & pain w/ext LTG Duration 02/03/23 JANE Impairment Short Term Goal (STG) Pt will improve score to no greater than 7/50 to show improved functional ability 09/29-n/t 12/01- STG Duration 01/01 Penitentiary Goal (LTG) Pt will improve score to no greater than 2/50 to show improved functional ability LTG Duration 02/03/23 Assessment Summary Assessment Pt had improve ability to long sit today further fwd over ischial tubs but still unable to sit up in appropriate position. 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 She did have improved neural tension in LE after manual treatment and improve ability to sit more onto ant ischial tubs. Physical Therapy Plan Frequency and Duration Frequency of Treatment 1x/Week Duration of treatment (weeks) 8 Plan of Care Start Date 12/01/22 Plan of Care End Date 02/03/23 Next Visit Focus/Plan Next Note Type Treatment Note Next Visit Plan cont to work on coccyx and ischial tubs in WB and neutal tension. Cont to work on pt ability for pt to SB and rot L ; further seated lumbar facet mobility (except L3-4 at fusion)
--- NOTE | 2023-01-04 15:01 | PT-OP ANOTE ---
[facility] peer to peer review completed 01/04 [id number]
--- NOTE | 2023-01-18 18:55 | PT.OTN ---
Current Diagnoses Intervertebral disc disorders with radiculopathy, lumbar region (01/18/23) Abnormal posture (01/18/23) Weakness (01/18/23) Physical Therapy Treatment Note PT-OP-A Visit Information Start: 08/01/22 17:48 Freq: Status: Active Protocol: Document 01/18/23 18:47 [facility] (Rec: 01/18/23 18:55 [facility] [id number]) Out-Patient Physical Therapy Visit Information Visit Information Visit Type Treatment Note Visit Note Student PT Sherrie Ruelas participated in treatment session w/PT direct supervision and direction Visit Start Time 10:51 Visit Stop Time 11:31 Total Visit Minutes 40 Visit Number Number of LITHOGRAPHIC PRESS OPERATOR APPRENTICE Visits 0 PT-OP-B Current Condition Start: 08/01/22 17:48 Freq: Status: Active Protocol: Document 08/02/22 15:03 [facility] (Rec: 08/02/22 16:09 [facility] [id number]) Current Condition History of Current Condition Onset Date L3-4 TLIF 06/06 Current Complaints LBP History of Current Condition Pt reports back pain started Mar 18 and she had worked out and felt sore that day and took a few days off and it didn't get beter. She hasn't worked out now since Mar. She had a cyst on the inside of her spine and they had to remove the disc in order to remove the cyst in the ant. She now had TLIF of L3-4. A spacer was placed in the spine also She had uterine CA on 2016 and it was all contained on her uterus and had that removed at the time. Her appendix ruptured 09/2017 and had appendectomy. She had to go back to the ER d/t bowel blockage and abscess. She had an umbilical hernia in 02/2018 and they just did a stich and then d/t covid didn't get fixed until 08/22 since it didn 't work. Pt reports her back used to be very flexible in ext. She felt like she had too much mobility ant and post flexiblity. 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 Pt reprots typically her workouts would be [place] and walking her dog. 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 Pt reports surgery was very painful. said she was healing well and plan to follow up in 2 more months. She is to cont to limit bending, lifting (greater than 10lbs) and twisting. Plan will be to possibly clear that in 2 months. Pt reports she has been walking 5 miles but said she was walking too much so she is now doing 4 miles/day. she walks slowly. Pt reports after her last hernia surgery, she had a lot more unstable in her core. Pt was limited in working out d/t 6 weeks required to rest after surgery and then had flu for 6 weeks then COVID for 6 weeks. Pt reports after surgery was re-admitted d/t severe constipation that requird colonoscopy. Prior Treatments and Tests Tried PT prior to surgery but pt notes she had LBP w/R leg pain all the way down leg Treatment Goals Patient/Caregiver Goals Get back to barre, pick something off ground, sleep, sit extended, no pain w/ donning socks & shoes PT-OP-C Subjective Start: 08/01/22 17:48 Freq: Status: Active Protocol: Document 01/18/23 18:47 [facility] (Rec: 01/18/23 18:55 [facility] [id number]) OP-PT Subjective Patient Comments Patient Comments Pt reports surgeon told her to expect that pain in sitting won't be fully recovered until after about 1 year. PT-OP-D Balance Start: 08/01/22 17:48 Freq: Status: Active Protocol: Document 08/02/22 15:03 [facility] (Rec: 08/02/22 16:09 [facility] [id number]) Balance Tests Single Limb Standing Single Limb- Right >30sec w/lat r hip shear & L rot Single Limb- Left >30 sec w/lat left hip shear and R hip hike PT-OP-F Manual Assessment Start: 08/01/22 17:48 Freq: Status: Active Protocol: Document 08/02/22 15:03 [facility] (Rec: 08/02/22 16:09 [facility] [id number]) Manual Assessments Soft Tissue Assessment Soft Tissue Mobility Assessment QL & ES tight B PT-OP-G Mobility & Gait Start: 08/01/22 17:48 Freq: Status: Active Protocol: Document 08/02/22 15:03 [facility] (Rec: 08/02/22 16:09 [facility] [id number]) OP Gait Assessment Comments Gait Comments dec ant dep B; LLE occ adducts , dec post dep B PT-OP-J Posture/Palpation/Skin Start: 08/01/22 17:48 Freq: Status: Active Protocol: Document 12/01/22 11:24 [facility] (Rec: 12/01/22 13:34 [facility] [id number]) Posture Evaluation [facility] Postural Classification System Vertebral Compression Test 4 Elbow Flexion Test 3 Lumbar Protective Mechanism Left AP 1 Lumbar Protective Mechanism Right AP 3 Lumbar Protective Mechanism Left PA 4 Lumbar Protective Mechanism Right PA 4 Leg Swing Left Hard End Feel,Limited Comments Posture Comments no R nutation PT-OP-K Range of Motion Start: 08/01/22 17:48 Freq: Status: Active Protocol: Document 12/01/22 11:24 [facility] (Rec: 12/01/22 13:34 [facility] [id number]) Lumbar Spine Range of Motion Lumbar Spine Active Percentage Flexion 55 Extension 50 Rotation Left 85 Rotation Right 100 Lateral Flexion Left 60 Lateral Flexion Right 90 Comments passive standing rot; feels unstable w/ext; w/flex 70% from HS and 30% from spine H& I testing: pt has equal ROM on R w/flex and ext quadrants but is more limited w/flex and ext quadrant when starting w/flex or ext indicating possible instability PT-OP-M Strength Start: 08/01/22 17:48 Freq: Status: Active Protocol: Document 12/01/22 11:24 [facility] (Rec: 12/01/22 13:34 [facility] [id number]) Hip Strength Hip Manual Muscle Testing Right Flexion (L2) 4 Good Extension (S1) 4+ Good+ Abduction 5 Normal Adduction 5 Normal External Rotation 5 Normal Internal Rotation 5 Normal Comments pain in back w/hip ext B Left Flexion (L2) 4+ Good+ Extension (S1) 4 Good Abduction 5 Normal Adduction 5 Normal External Rotation 5 Normal Internal Rotation 5 Normal Comments dec core stability w/testing hip flex B Knee Strength Knee Manual Muscle Testing Right Flexion (S2) 5 Normal Extension (L3) 5 Normal Left Flexion (S2) 5 Normal Extension (L3) 5 Normal Ankle/Foot Strength Ankle and Foot Manual Muscle Testing Right Dorsiflexion (L4) 5 Normal Plantarflexion (S1) 5 Normal Left Dorsiflexion (L4) 5 Normal Plantarflexion (S1) 5 Normal Comments 20 heel raises B PT-OP-Q Treatments Start: 08/01/22 17:48 Freq: Status: Active Protocol: Document 01/18/23 18:47 [facility] (Rec: 01/18/23 18:55 [facility] [id number]) Therapeutic Activity Therapeutic Activity posture Reps/Minutes 10 min Comments seated posture set up w/ working on relax of abdomeninal contents into pelvic floor w/o slouch and relax of paraspinals. working on sitting on pelvic floor and appropriate sitting height Manual Therapy Treatment Soft Tissue Mobilization scar Body Location spine Mobilization Type Myofascial Release Intensity/Depth Superficial Comments seated flex/ext Joint Mobilizations coccyx Comments L to R SB FM in s/l and seated w/neural tension RLE & R to L pressure though visceral restrictions Self-Care/Home Management Treatment Education Other Education 8 min: dsicussion that some of her limit w/long sit and HS stretch on bar is HS flexibility. Edu that this has imrpoved in the month since not seeing PT and will likely further improve as she cont to work on this in [place] and with exercises. Edu that visceral and coccyx restrictions are likely part of what limti her ability to sit extended. edu on self STM w/active HS stretch PT-OP-T Assessment and Plan Start: 08/01/22 17:48 Freq: Status: Active Protocol: Document 01/18/23 18:47 [facility] (Rec: 01/18/23 18:55 [facility] [id number]) Physical Therapy Assessment Goals Long sit Fpc Goal (LTG) Pt will be able to long sit for work w/o inc pain LTG Duration 02/03/23 UE Impairment Pt has weakness in LUE compared to R when lifting and notices she has to rotate spine to L to keep arm neutral . Thread Grinder Goal (LTG) Pt will be able to lift LUE straight in front of her w/o corresponding rotation. LTG Duration 02/03/23 exercise Fpc Goal (LTG) Pt will be able to return to [place] exercise routines w/o inc pain. 08/23-started 6 min and felt ok 09/29-back to modified barre for 50 min 5-6 days a week 12/01-can do all but long sit LTG Duration 02/03 activities Impairment cannot sit >20min and pain w/ laying down Short Term Goal (STG) Pt will be able to position herself to sleep comofrtably though to night w/o inc pain. 08/23-dec frequency of waking up through night STG Duration achieved Thread Grinder Goal (LTG) Pt will be able to sit as long as needed without inc pain. 08/23-still very limited; no change 09/29-can sit about 10 min before pain starts 12/01-pt can sit 25 min; did 2 one hour flights and propped herself but had 7/10 by end of each 1 hour flight LTG Duration 02/03/23 strength Short Term Goal (STG) Pt will be indep w/HEP for flexiblity, strength and posture 08/23-advancing as able STG Duration achieved advancing as able Thread Grinder Goal (LTG) Pt will score at least 5/5 on all LE MMT B and at least 3/5 LPM and EFT to show improved stabiltiy to allow pt to return to her normal activities w/o pain. 08/23improved 09/29-much improved 12/01-cont improvement but still limited w/flex and AP LPM & pain w/ext LTG Duration 02/03/23 JANE Impairment 13/50 Short Term Goal (STG) Pt will improve score to no greater than 7/50 to show improved functional ability 09/29-n/t 12/01-12/50 STG Duration 01/01 Thread Grinder Goal (LTG) Pt will improve score to no greater than 2/50 to show improved functional ability LTG Duration 02/03/23 Assessment Summary Assessment Pt had dec tension w/RLE slump testing after manual treatment and less pull on coccyx. She had more pull on coccyx to shear L w/visceral pull and w/combo mobilization w/neural tension, pt improved tension which likely will improve sitting tolerance. Physical Therapy Plan Frequency and Duration Frequency of Treatment 1x/Week Duration of treatment (weeks) 8 Plan of Care Start Date 12/01/22 Plan of Care End Date 02/03/23 Next Visit Focus/Plan Next Note Type Treatment Note Next Visit Plan cont to work on coccyx and ischial tubs in WB and neutal tension. Cont to work on pt ability for pt to SB and rot L ; further seated lumbar facet mobility (except L3-4 at fusion)
--- NOTE | 2023-01-25 18:14 | PT.OTN ---
Current Diagnoses Intervertebral disc disorders with radiculopathy, lumbar region (01/25/23) Abnormal posture (01/25/23) Weakness (01/25/23) Physical Therapy Treatment Note PT-OP-A Visit Information Start: 08/01/22 17:48 Freq: Status: Active Protocol: Document 01/25/23 15:55 [facility] (Rec: 01/25/23 18:14 [facility] [id number]) Out-Patient Physical Therapy Visit Information Visit Information Visit Type Progress Note Visit Note Student PT Sherrie Ruelas participated in treatment session w/PT direct supervision and direction Visit Start Time 16:03 Visit Stop Time 16:52 Total Visit Minutes 49 Visit Number Number of PROJECT MANAGER INDUSTRIAL Visits 0 PT-OP-B Current Condition Start: 08/01/22 17:48 Freq: Status: Active Protocol: Document 08/02/22 15:03 [facility] (Rec: 08/02/22 16:09 [facility] [id number]) Current Condition History of Current Condition Onset Date L3-4 TLIF 06/06 Current Complaints LBP History of Current Condition Pt reports back pain started Mar 18 and she had worked out and felt sore that day and took a few days off and it didn't get beter. She hasn't worked out now since Mar. She had a cyst on the inside of her spine and they had to remove the disc in order to remove the cyst in the ant. She now had TLIF of L3-4. A spacer was placed in the spine also She had uterine CA on 2016 and it was all contained on her uterus and had that removed at the time. Her appendix ruptured 09/2017 and had appendectomy. She had to go back to the ER d/t bowel blockage and abscess. She had an umbilical hernia in 02/2018 and they just did a stich and then d/t covid didn't get fixed until 08/22 since it didn 't work. Pt reports her back used to be very flexible in ext. She felt like she had too much mobility ant and post flexiblity. 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 Pt reprots typically her workouts would be [place] and walking her dog. 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 Pt reports surgery was very painful. said she was healing well and plan to follow up in 2 more months. She is to cont to limit bending, lifting (greater than 10lbs) and twisting. Plan will be to possibly clear that in 2 months. Pt reports she has been walking 5 miles but said she was walking too much so she is now doing 4 miles/day. she walks slowly. Pt reports after her last hernia surgery, she had a lot more unstable in her core. Pt was limited in working out d/t 6 weeks required to rest after surgery and then had flu for 6 weeks then COVID for 6 weeks. Pt reports after surgery was re-admitted d/t severe constipation that requird colonoscopy. Prior Treatments and Tests Tried PT prior to surgery but pt notes she had LBP w/R leg pain all the way down leg Treatment Goals Patient/Caregiver Goals Get back to barre, pick something off ground, sleep, sit extended, no pain w/ donning socks & shoes PT-OP-C Subjective Start: 08/01/22 17:48 Freq: Status: Active Protocol: Document 01/25/23 15:55 [facility] (Rec: 01/25/23 18:14 [facility] [id number]) OP-PT Subjective Patient Comments Patient Comments Pt reports she can sit for about 30 min at a time PT-OP-D Balance Start: 08/01/22 17:48 Freq: Status: Active Protocol: Document 08/02/22 15:03 [facility] (Rec: 08/02/22 16:09 [facility] [id number]) Balance Tests Single Limb Standing Single Limb- Right >30sec w/lat r hip shear & L rot Single Limb- Left >30 sec w/lat left hip shear and R hip hike PT-OP-F Manual Assessment Start: 08/01/22 17:48 Freq: Status: Active Protocol: Document 08/02/22 15:03 [facility] (Rec: 08/02/22 16:09 [facility] [id number]) Manual Assessments Soft Tissue Assessment Soft Tissue Mobility Assessment QL & ES tight B PT-OP-G Mobility & Gait Start: 08/01/22 17:48 Freq: Status: Active Protocol: Document 08/02/22 15:03 [facility] (Rec: 08/02/22 16:09 [facility] [id number]) OP Gait Assessment Comments Gait Comments dec ant dep B; LLE occ adducts , dec post dep B PT-OP-J Posture/Palpation/Skin Start: 08/01/22 17:48 Freq: Status: Active Protocol: Document 01/25/23 15:55 [facility] (Rec: 01/25/23 18:14 [facility] [id number]) Posture Evaluation [facility] Postural Classification System Lumbar Protective Mechanism Left AP 2 Lumbar Protective Mechanism Right AP 3 Lumbar Protective Mechanism Left PA 4 Lumbar Protective Mechanism Right PA 4 PT-OP-K Range of Motion Start: 08/01/22 17:48 Freq: Status: Active Protocol: Document 01/25/23 15:55 [facility] (Rec: 01/25/23 18:14 [facility] [id number]) Lumbar Spine Range of Motion Lumbar Spine Active Percentage Comments flex: in to ground w/hips blocked PT-OP-M Strength Start: 08/01/22 17:48 Freq: Status: Active Protocol: Document 01/25/23 15:55 [facility] (Rec: 01/25/23 18:14 [facility] [id number]) Hip Strength Hip Manual Muscle Testing Right Flexion (L2) 5 Normal Extension (S1) 4+ Good+ Abduction 5 Normal Adduction 5 Normal External Rotation 5 Normal Internal Rotation 5 Normal Comments pain in back w/hip ext B- improved to all 5/5 w/ faciltiation Left Flexion (L2) 4+ Good+ Extension (S1) 4 Good Abduction 5 Normal Adduction 5 Normal External Rotation 5 Normal Internal Rotation 5 Normal Comments dec core stability w/testing hip flex B PT-OP-Q Treatments Start: 08/01/22 17:48 Freq: Status: Active Protocol: Document 01/25/23 15:55 [facility] (Rec: 01/25/23 18:14 [facility] [id number]) Therapeutic Exercises Supine Exercises abdominal series Supine Exercise Name flex, cross, ext, flex Side bilateral Reps/Minutes 30 sec ea Prone Exercises hip ext Side bilateral Reps/Minutes 10 sec x2 B Manual Therapy Treatment Soft Tissue Mobilization parapsinal MFR in modified yosef pose Comments yosef pose sit backs w/ fascial release and cupping Neuro Re-Education Treatment Other Activities PNF Details B (ea individually) Reps/Duration 14 min Comments 1. irradiation from traction at LE to pelvis ant elevation progressed to sustained holds 2. COI w/dissociation of LE then pelvis then COI of entire extremity facilitation Reps/Duration 10 min Comments prone ballerina-facilitation for multifidi and glue activiation w/approximation and pressure through LE and pelvis mult sustained holds and COI 2. sustained hold in L diagnonal double LE flex pattern PT-OP-T Assessment and Plan Start: 08/01/22 17:48 Freq: Status: Active Protocol: Document 01/25/23 15:55 [facility] (Rec: 01/25/23 18:14 [facility] [id number]) Physical Therapy Assessment Goals Long sit Prison Goal (LTG) Pt will be able to long sit for work w/o inc pain 01/25-still feels very tight but has improved capacity into the position LTG Duration 03/03 UE Impairment Pt has weakness in LUE compared to R when lifting and notices she has to rotate spine to L to keep arm neutral . Physician Interventional Cardiologist Goal (LTG) Pt will be able to lift LUE straight in front of her w/o corresponding rotation. 01/25-n/t LTG Duration 03/03 exercise Prison Goal (LTG) Pt will be able to return to [place] exercise routines w/o inc pain. 08/23-started 6 min and felt ok 09/29-back to modified barre for 50 min 5-6 days a week 12/01-can do all but long sit LTG Duration achieved activities Impairment cannot sit >20min and pain w/ laying down Short Term Goal (STG) Pt will be able to position herself to sleep comofrtably though to night w/o inc pain. 08/23-dec frequency of waking up through night STG Duration achieved Prison Goal (LTG) Pt will be able to sit as long as needed without inc pain. 08/23-still very limited; no change 09/29-can sit about 10 min before pain starts 12/01-pt can sit 25 min; did 2 one hour flights and propped herself but had 7/10 by end of each 1 hour flight 01/25-30 min max at this time LTG Duration 03/03 strength Short Term Goal (STG) Pt will be indep w/HEP for flexiblity, strength and posture 08/23-advancing as able STG Duration achieved advancing as able Prison Goal (LTG) Pt will score at least 5/5 on all LE MMT B and at least 3/5 LPM and EFT to show improved stabiltiy to allow pt to return to her normal activities w/o pain. 08/23improved 09/29-much improved 12/01-cont improvement but still limited w/flex and AP LPM & pain w/ext 01/25-improved but improves further w/faciliation LTG Duration 03/08/23 JANE Impairment Short Term Goal (STG) Pt will improve score to no greater than 7/50 to show improved functional ability 09/29-n/t 12/01- 01/25- STG Duration 02/15/23 Physician Interventional Cardiologist Goal (LTG) Pt will improve score to no greater than 2/50 to show improved functional ability LTG Duration 03/08/23 Assessment Summary Assessment Pt is reporting improvement w/ functional activity overall w/ PT, but did still show some weakness that did improve w/ facilitation. Found that rotation of spine inhibited her so encouraged pt to monitor her rotation for the next week and use her facilitation exercises to maintain stability during the day. Pt had improved hip flex and ext to 5/5 w/o pain after manual & PNF and facilitation whereas prior it was peainful and weaker. She would benefit from cont PT to work on stabiltiy, mobility and functional ability in order to dec pain and improve pt ability to sit for longer periods. Physical Therapy Plan Frequency and Duration Frequency of Treatment 1x/Week Duration of treatment (weeks) 6 Plan of Care Start Date 01/25/23 Plan of Care End Date 03/08/23 Therapeutic Interventions Therapeutic Interventions Balance Training,Gait Training ,Home Exercise Program,Joint Mobilizations,Manual Therapy, Neuromuscular Re-education, Patient/Caregiver Education, Self-Care/Home Management,Soft Tissue Mobilization,Taping, Therapeutic Activities, Therapeutic Exercises Modalities Cold Pack/Ice Massage,Electric Stimulation,Ultrasound Next Visit Focus/Plan Next Note Type Treatment Note Next Visit Plan cont to work on coccyx and ischial tubs in WB and neutal tension. Cont to work on pt ability for pt to SB and rot L ; further seated lumbar facet mobility (except L3-4 at fusion)
--- NOTE | 2023-01-25 18:14 | PT.OPPOC ---
Physical, Occupational & Speech Therapy At [facility] Current Diagnoses Intervertebral disc disorders with radiculopathy, lumbar region (01/25/23) Abnormal posture (01/25/23) Weakness (01/25/23) Visit Care Team Role Provider Type Beena Yusuf ND Family Provider Non-Staff Primary Care Provider Specialty: Naturopathy Address: [address] [place] [address], [address], [address] Email: Iván Duke MD Attending Provider Physician Referring Provider Specialty: Orthopedics Orthopedic Surgery Address: [address] [place] [address], [id number] Email: [email or web address] Plan Of Care PT-OP-T Assessment and Plan Start: 08/01/22 17:48 Freq: Status: Active Protocol: Document 01/25/23 15:55 [facility] (Rec: 01/25/23 18:14 [facility] [id number]) Physical Therapy Assessment Goals Long sit Devulcanizer Tender Goal (LTG) Pt will be able to long sit for work w/o inc pain 01/25-still feels very tight but has improved capacity into the position LTG Duration 03/03 UE Impairment Pt has weakness in LUE compared to R when lifting and notices she has to rotate spine to L to keep arm neutral . Retirement Goal (LTG) Pt will be able to lift LUE straight in front of her w/o corresponding rotation. 01/25-n/t LTG Duration 03/03 exercise Devulcanizer Tender Goal (LTG) Pt will be able to return to [place] exercise routines w/o inc pain. 08/23-started 6 min and felt ok 09/29-back to modified barre for 50 min 5-6 days a week 12/01-can do all but long sit LTG Duration achieved activities Impairment cannot sit >20min and pain w/ laying down Short Term Goal (STG) Pt will be able to position herself to sleep comofrtably though to night w/o inc pain. 08/23-dec frequency of waking up through night STG Duration achieved Devulcanizer Tender Goal (LTG) Pt will be able to sit as long as needed without inc pain. 08/23-still very limited; no change 09/29-can sit about 10 min before pain starts 12/01-pt can sit 25 min; did 2 one hour flights and propped herself but had 7/10 by end of each 1 hour flight 01/25-30 min max at this time LTG Duration 03/03 strength Short Term Goal (STG) Pt will be indep w/HEP for flexiblity, strength and posture 08/23-advancing as able STG Duration achieved advancing as able Retirement Goal (LTG) Pt will score at least 5/5 on all LE MMT B and at least 3/5 LPM and EFT to show improved stabiltiy to allow pt to return to her normal activities w/o pain. 08/23improved 09/29-much improved 12/01-cont improvement but still limited w/flex and AP LPM & pain w/ext 01/25-improved but improves further w/faciliation LTG Duration 03/08/23 JANE Impairment Short Term Goal (STG) Pt will improve score to no greater than 7/50 to show improved functional ability 09/29-n/t 12/01-1201/25- STG Duration 02/15/23 Retirement Goal (LTG) Pt will improve score to no greater than 2/50 to show improved functional ability LTG Duration 03/08/23 Assessment Summary Assessment Pt is reporting improvement w/ functional activity overall w/ PT, but did still show some weakness that did improve w/ facilitation. Found that rotation of spine inhibited her so encouraged pt to monitor her rotation for the next week and use her facilitation exercises to maintain stability during the day. Pt had improved hip flex and ext to 5/5 w/o pain after manual & PNF and facilitation whereas prior it was peainful and weaker. She would benefit from cont PT to work on stabiltiy, mobility and functional ability in order to dec pain and improve pt ability to sit for longer periods. Physical Therapy Plan Frequency and Duration Frequency of Treatment 1x/Week Duration of treatment (weeks) 6 Plan of Care Start Date 01/25/23 Plan of Care End Date 03/08/23 Therapeutic Interventions Therapeutic Interventions Balance Training,Gait Training ,Home Exercise Program,Joint Mobilizations,Manual Therapy, Neuromuscular Re-education, Patient/Caregiver Education, Self-Care/Home Management,Soft Tissue Mobilization,Taping, Therapeutic Activities, Therapeutic Exercises Modalities Cold Pack/Ice Massage,Electric Stimulation,Ultrasound Next Visit Focus/Plan Next Note Type Treatment Note Next Visit Plan cont to work on coccyx and ischial tubs in WB and neutal tension. Cont to work on pt ability for pt to SB and rot L ; further seated lumbar facet mobility (except L3-4 at fusion) Plan of Care Dates Plan of Care Start Date 01/25/23 Plan of Care End Date 03/08/23 Electronically Signed by: Precious Castaneda, PT 01/25/23 [id number] If you are in agreement with this Plan of Care, please return a signed and dated copy. I have reviewed this Plan of Care and certify that the skilled therapy services above are required to meet the patient?s needs. Physician Signature Date Printed Name and Credentials Clinical Instructor Signature Printed Name and Credentials
--- NOTE | 2023-02-01 17:11 | PT.OTN ---
Current Diagnoses Intervertebral disc disorders with radiculopathy, lumbar region (02/01/23) Abnormal posture (02/01/23) Weakness (02/01/23) Physical Therapy Treatment Note PT-OP-A Visit Information Start: 08/01/22 17:48 Freq: Status: Active Protocol: Document 02/01/23 14:16 [facility] (Rec: 02/01/23 17:11 [facility] [id number]) Out-Patient Physical Therapy Visit Information Visit Information Visit Type Treatment Note Visit Note Student PT Sherrie Ruelas participated in treatment session w/PT direct supervision and direction Visit Start Time 14:18 Visit Stop Time 15:03 Total Visit Minutes 45 Visit Number 21/ Number of MUSIC DEPARTMENT CHAIR Visits 0 PT-OP-B Current Condition Start: 08/01/22 17:48 Freq: Status: Active Protocol: Document 08/02/22 15:03 [facility] (Rec: 08/02/22 16:09 [facility] [id number]) Current Condition History of Current Condition Onset Date L3-4 TLIF 06/06 Current Complaints LBP History of Current Condition Pt reports back pain started Mar 18 and she had worked out and felt sore that day and took a few days off and it didn't get beter. She hasn't worked out now since Mar. She had a cyst on the inside of her spine and they had to remove the disc in order to remove the cyst in the ant. She now had TLIF of L3-4. A spacer was placed in the spine also She had uterine CA on 2016 and it was all contained on her uterus and had that removed at the time. Her appendix ruptured 09/2017 and had appendectomy. She had to go back to the ER d/t bowel blockage and abscess. She had an umbilical hernia in 02/2018 and they just did a stich and then d/t covid didn't get fixed until 08/22 since it didn 't work. Pt reports her back used to be very flexible in ext. She felt like she had too much mobility ant and post flexiblity. 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 Pt reprots typically her workouts would be [place] and walking her dog. 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 Pt reports surgery was very painful. said she was healing well and plan to follow up in 2 more months. She is to cont to limit bending, lifting (greater than 10lbs) and twisting. Plan will be to possibly clear that in 2 months. Pt reports she has been walking 5 miles but said she was walking too much so she is now doing 4 miles/day. she walks slowly. Pt reports after her last hernia surgery, she had a lot more unstable in her core. Pt was limited in working out d/t 6 weeks required to rest after surgery and then had flu for 6 weeks then COVID for 6 weeks. Pt reports after surgery was re-admitted d/t severe constipation that requird colonoscopy. Prior Treatments and Tests Tried PT prior to surgery but pt notes she had LBP w/R leg pain all the way down leg Treatment Goals Patient/Caregiver Goals Get back to barre, pick something off ground, sleep, sit extended, no pain w/ donning socks & shoes PT-OP-C Subjective Start: 08/01/22 17:48 Freq: Status: Active Protocol: Document 02/01/23 14:16 [facility] (Rec: 02/01/23 17:11 [facility] [id number]) OP-PT Subjective Patient Comments Patient Comments Pt reports sitting is still limited to 30 min. Notes she still feels limited in her long sit PT-OP-D Balance Start: 08/01/22 17:48 Freq: Status: Active Protocol: Document 08/02/22 15:03 [facility] (Rec: 08/02/22 16:09 [facility] [id number]) Balance Tests Single Limb Standing Single Limb- Right >30sec w/lat r hip shear & L rot Single Limb- Left >30 sec w/lat left hip shear and R hip hike PT-OP-F Manual Assessment Start: 08/01/22 17:48 Freq: Status: Active Protocol: Document 08/02/22 15:03 [facility] (Rec: 08/02/22 16:09 [facility] [id number]) Manual Assessments Soft Tissue Assessment Soft Tissue Mobility Assessment QL & ES tight B PT-OP-G Mobility & Gait Start: 08/01/22 17:48 Freq: Status: Active Protocol: Document 08/02/22 15:03 [facility] (Rec: 08/02/22 16:09 [facility] [id number]) OP Gait Assessment Comments Gait Comments dec ant dep B; LLE occ adducts , dec post dep B PT-OP-J Posture/Palpation/Skin Start: 08/01/22 17:48 Freq: Status: Active Protocol: Document 01/25/23 15:55 [facility] (Rec: 01/25/23 18:14 [facility] [id number]) Posture Evaluation [facility] Postural Classification System Lumbar Protective Mechanism Left AP 2 Lumbar Protective Mechanism Right AP 3 Lumbar Protective Mechanism Left PA 4 Lumbar Protective Mechanism Right PA 4 PT-OP-K Range of Motion Start: 08/01/22 17:48 Freq: Status: Active Protocol: Document 01/25/23 15:55 [facility] (Rec: 01/25/23 18:14 [facility] [id number]) Lumbar Spine Range of Motion Lumbar Spine Active Percentage Comments flex: in to ground w/hips blocked PT-OP-M Strength Start: 08/01/22 17:48 Freq: Status: Active Protocol: Document 01/25/23 15:55 [facility] (Rec: 01/25/23 18:14 [facility] [id number]) Hip Strength Hip Manual Muscle Testing Right Flexion (L2) 5 Normal Extension (S1) 4+ Good+ Abduction 5 Normal Adduction 5 Normal External Rotation 5 Normal Internal Rotation 5 Normal Comments pain in back w/hip ext B- improved to all 5/5 w/ faciltiation Left Flexion (L2) 4+ Good+ Extension (S1) 4 Good Abduction 5 Normal Adduction 5 Normal External Rotation 5 Normal Internal Rotation 5 Normal Comments dec core stability w/testing hip flex B PT-OP-Q Treatments Start: 08/01/22 17:48 Freq: Status: Active Protocol: Document 02/01/23 14:16 [facility] (Rec: 02/01/23 17:11 [facility] [id number]) Therapeutic Exercises Prone Exercises cobra Prone Exercise Name cues slow contorlled range Reps/Minutes 4 hip ext Side bilateral Reps/Minutes 15 sec x2 B Sitting Exercises pelvic tilts Reps/Minutes 3x10 Comments max cues initially for full range Other Exercises cat cow Reps/Minutes 4 Manual Therapy Treatment Joint Mobilizations lumbar Comments L4 and 5 PA in quadruped and prone prop; L4 and L5 downglide L FM innominate Comments iscial tub abd R PT-OP-T Assessment and Plan Start: 08/01/22 17:48 Freq: Status: Active Protocol: Document 02/01/23 14:16 [facility] (Rec: 02/01/23 17:11 [facility] [id number]) Physical Therapy Assessment Goals Long sit Shelter Goal (LTG) Pt will be able to long sit for work w/o inc pain 01/25-still feels very tight but has improved capacity into the position LTG Duration 03/03 UE Impairment Pt has weakness in LUE compared to R when lifting and notices she has to rotate spine to L to keep arm neutral . Return Checker Goal (LTG) Pt will be able to lift LUE straight in front of her w/o corresponding rotation. 01/25-n/t LTG Duration 03/03 exercise Shelter Goal (LTG) Pt will be able to return to [place] exercise routines w/o inc pain. 08/23-started 6 min and felt ok 09/29-back to modified barre for 50 min 5-6 days a week 12/01-can do all but long sit LTG Duration achieved activities Impairment cannot sit >20min and pain w/ laying down Short Term Goal (STG) Pt will be able to position herself to sleep comofrtably though to night w/o inc pain. 08/23-dec frequency of waking up through night STG Duration achieved Shelter Goal (LTG) Pt will be able to sit as long as needed without inc pain. 08/23-still very limited; no change 09/29-can sit about 10 min before pain starts 12/01-pt can sit 25 min; did 2 one hour flights and propped herself but had 7/10 by end of each 1 hour flight 01/25-30 min max at this time LTG Duration 03/03 strength Short Term Goal (STG) Pt will be indep w/HEP for flexiblity, strength and posture 08/23-advancing as able STG Duration achieved advancing as able Return Checker Goal (LTG) Pt will score at least 5/5 on all LE MMT B and at least 3/5 LPM and EFT to show improved stabiltiy to allow pt to return to her normal activities w/o pain. 08/23improved 09/29-much improved 12/01-cont improvement but still limited w/flex and AP LPM & pain w/ext 01/25-improved but improves further w/faciliation LTG Duration 03/08/23 JANE Impairment Short Term Goal (STG) Pt will improve score to no greater than 7/50 to show improved functional ability 09/29-n/t 12/01- 01/25- STG Duration 02/15/23 Shelter Goal (LTG) Pt will improve score to no greater than 2/50 to show improved functional ability LTG Duration 03/08/23 Assessment Summary Assessment Pt was limited in ability toget into lumbar ext in sitting. After mobilization this improved which will likely improve pt ability to tolerate sitting for longer periods. Physical Therapy Plan Frequency and Duration Frequency of Treatment 1x/Week Duration of treatment (weeks) 6 Plan of Care Start Date 01/25/23 Plan of Care End Date 03/08/23 Next Visit Focus/Plan Next Note Type Treatment Note Next Visit Plan DC d/t insurance limits; make sure pt set w/exercises
--- NOTE | 2023-02-09 17:47 | PT.OTN ---
Current Diagnoses Intervertebral disc disorders with radiculopathy, lumbar region (02/09/23) Abnormal posture (02/09/23) Weakness (02/09/23) Physical Therapy Treatment Note PT-OP-A Visit Information Start: 08/01/22 17:48 Freq: Status: Active Protocol: Document 02/09/23 17:08 [facility] (Rec: 02/09/23 17:47 [facility] [id number]) Out-Patient Physical Therapy Visit Information Visit Information Visit Type Discharge Summary Visit Note Student PT Sherrie Ruelas participated in treatment session w/PT direct supervision and direction Visit Start Time 12:47 Visit Stop Time 13:32 Total Visit Minutes 45 Visit Number 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 She hasn't worked out now since Mar. She had a cyst on the inside of her spine and they had to remove the disc in order to remove the cyst in the ant. She now had TLIF of L3-4. A spacer was placed in the spine also She had uterine CA on 2016 and it was all contained on her uterus and had that removed at the time. Her appendix ruptured 09/2017 and had appendectomy. She had to go back to the ER d/t bowel blockage and abscess. She had an umbilical hernia in 02/2018 and they just did a stich and then d/t covid didn't get fixed until 08/22 since it didn 't work. Pt reports her back used to be very flexible in ext. She felt like she had too much mobility ant and post flexiblity. 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 Pt reprots typically her workouts would be [employer] and walking her dog. 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 Pt reports surgery was very painful. said she was healing well and plan to follow up in 2 more months. She is to cont to limit bending, lifting (greater than 10lbs) and twisting. Plan will be to possibly clear that in 2 months. Pt reports she has been walking 5 miles but said she was walking too much so she is now doing 4 miles/day. she walks slowly. Pt reports after her last hernia surgery, she had a lot more unstable in her core. Pt was limited in working out d/t 6 weeks required to rest after surgery and then had flu for 6 weeks then COVID for 6 weeks. Pt reports after surgery was re-admitted d/t severe constipation that requird colonoscopy. Prior Treatments and Tests Tried PT prior to surgery but pt notes she had LBP w/R leg pain all the way down leg Treatment Goals Patient/Caregiver Goals Get back to barre, pick something off ground, sleep, sit extended, no pain w/ donning socks & shoes PT-OP-C Subjective Start: 08/01/22 17:48 Freq: Status: Active Protocol: Document 02/09/23 17:08 [facility] (Rec: 02/09/23 17:47 [facility] [id number]) OP-PT Subjective Patient Comments Patient Comments Pt reports she had to drive to [place] and her back was killing her by the end of the drive. Notes she also had pain sitting at a comedy show. PT-OP-D Balance Start: 08/01/22 17:48 Freq: Status: Active Protocol: Document 08/02/22 15:03 [facility] (Rec: 08/02/22 16:09 [facility] [id number]) Balance Tests Single Limb Standing Single Limb- Right >30sec w/lat r hip shear & L rot Single Limb- Left >30 sec w/lat left hip shear and R hip hike PT-OP-F Manual Assessment Start: 08/01/22 17:48 Freq: Status: Active Protocol: Document 08/02/22 15:03 [facility] (Rec: 08/02/22 16:09 [facility] [id number]) Manual Assessments Soft Tissue Assessment Soft Tissue Mobility Assessment QL & ES tight B PT-OP-G Mobility & Gait Start: 08/01/22 17:48 Freq: Status: Active Protocol: Document 08/02/22 15:03 [facility] (Rec: 08/02/22 16:09 [facility] [id number]) OP Gait Assessment Comments Gait Comments dec ant dep B; LLE occ adducts , dec post dep B PT-OP-J Posture/Palpation/Skin Start: 08/01/22 17:48 Freq: Status: Active Protocol: Document 01/25/23 15:55 [facility] (Rec: 01/25/23 18:14 [facility] [id number]) Posture Evaluation Jass Postural Classification System Lumbar Protective Mechanism Left AP 2 Lumbar Protective Mechanism Right AP 3 Lumbar Protective Mechanism Left PA 4 Lumbar Protective Mechanism Right PA 4 PT-OP-K Range of Motion Start: 08/01/22 17:48 Freq: Status: Active Protocol: Document 01/25/23 15:55 [facility] (Rec: 01/25/23 18:14 [facility] [id number]) Lumbar Spine Range of Motion Lumbar Spine Active Percentage Comments flex: in to ground w/hips blocked PT-OP-M Strength Start: 08/01/22 17:48 Freq: Status: Active Protocol: Document 01/25/23 15:55 [facility] (Rec: 01/25/23 18:14 [facility] [id number]) Hip Strength Hip Manual Muscle Testing Right Flexion (L2) 5 Normal Extension (S1) 4+ Good+ Abduction 5 Normal Adduction 5 Normal External Rotation 5 Normal Internal Rotation 5 Normal Comments pain in back w/hip ext B- improved to all 5/5 w/ faciltiation Left Flexion (L2) 4+ Good+ Extension (S1) 4 Good Abduction 5 Normal Adduction 5 Normal External Rotation 5 Normal Internal Rotation 5 Normal Comments dec core stability w/testing hip flex B PT-OP-Q Treatments Start: 08/01/22 17:48 Freq: Status: Active Protocol: Document 02/09/23 17:08 [facility] (Rec: 02/09/23 17:47 [facility] [id number]) Manual Therapy Treatment Soft Tissue Mobilization post Body Location R glutes, piriformis and deep rot Mobilization Type Sustained Pressure Intensity/Depth Moderate Comments s/l w/nerve glide abdomen Mobilization Type Myofascial Release,Sustained Pressure Comments ligament of [place] & MFR of inf scar on abdomen w/sciatic n glide scar Body Location spine Mobilization Type Myofascial Release Intensity/Depth Superficial Comments seated flex/ext Joint Mobilizations innominate Comments R PA FM in sitting Self-Care/Home Management Treatment Education Other Education 4 min: 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 Edu that if in 3 months, with self working out, still having issues, discuss w/MD for new referral. demo on how to use tennis ball for PT-OP-T Assessment and Plan Start: 08/01/22 17:48 Freq: Status: Active Protocol: Document 02/09/23 17:08 [facility] (Rec: 02/09/23 17:47 [facility] [id number]) Physical Therapy Assessment Goals Long sit Halfway Goal (LTG) Pt will be able to long sit for work w/o inc pain 01/25-still feels very tight but has improved capacity into the position LTG Duration improving capacity but not full to her typical UE Impairment Pt has weakness in LUE compared to R when lifting and notices she has to rotate spine to L to keep arm neutral . Halfway Goal (LTG) Pt will be able to lift LUE straight in front of her w/o corresponding rotation. 01/25-n/t LTG Duration still has some dec stability exercise Research Biostatistician Goal (LTG) Pt will be able to return to [place] exercise routines w/o inc pain. 08/23-started 6 min and felt ok 09/29-back to modified barre for 50 min 5-6 days a week 12/01-can do all but long sit LTG Duration achieved activities Impairment cannot sit >20min and pain w/ laying down Short Term Goal (STG) Pt will be able to position herself to sleep comofrtably though to night w/o inc pain. 08/23-dec frequency of waking up through night STG Duration achieved Research Biostatistician Goal (LTG) Pt will be able to sit as long as needed without inc pain. 08/23-still very limited; no change 09/29-can sit about 10 min before pain starts 12/01-pt can sit 25 min; did 2 one hour flights and propped herself but had 7/10 by end of each 1 hour flight 01/25-30 min max at this time LTG Duration sitll limited ot about 30 min strength Short Term Goal (STG) Pt will be indep w/HEP for flexiblity, strength and posture 08/23-advancing as able STG Duration achieved advancing as able Research Biostatistician Goal (LTG) Pt will score at least 5/5 on all LE MMT B and at least 3/5 LPM and EFT to show improved stabiltiy to allow pt to return to her normal activities w/o pain. 08/23improved 09/29-much improved 12/01-cont improvement but still limited w/flex and AP LPM & pain w/ext 01/25-improved but improves further w/faciliation LTG Duration MMT improves w/facilitation JANE Impairment Short Term Goal (STG) Pt will improve score to no greater than 7/50 to show improved functional ability 09/29-n/t 12/01- 01/25- STG Duration 02/15/23 Halfway Goal (LTG) Pt will improve score to no greater than 2/50 to show improved functional ability LTG Duration still limited when last tested Assessment Summary Assessment pt has made much progress through PT and has much improved functional ability. She had good carryover ext from last sessionb ut still limited seated time. She had imrpoved R sciatic n glide from postive w/neural tension to full range w/o pain in back . SHe had improved flex today but is still limited in spine. She had 4 more visits authorized w/peer to peer but no further visits authorized. Pt encouraged to cont to work on core and hip mobility exercises and self release. Pt DC at this time d/t insurance limitation. Physical Therapy Plan Discharge Physical Therapy Discharge Comments Insurance limits
== END 2023-02-14 08:40 | disposition home or self-care (01) ==
LOC: PHYS 12:45
PROVIDERS: Family Provider Naturopath; PCP Naturopath; Referring Provider Orthopaedic Surgery Orthopaedic Surgery of the Spine; Visit Provider Orthopaedic Surgery Orthopaedic Surgery of the Spine
DX: M51.16 Intervertebral disc disorders with radiculopathy, lumbar region (principal); R29.3 Abnormal posture; R53.1 Weakness
CPT/HCPCS: 97110; 97112; 97140; 97162; 97530; 97535; 97750

== ENCOUNTER → 2024-08-23 12:47 | Outpatient (CLI) | payer OTHER, SELFPAY ==
--- NOTE | 2024-08-23 12:48 | DI.MG.S_ITS ---
MM screening mammo BI: 08/23/2024. BI-RADS: 1 CLINICAL: 53-year old female for bilateral screening mammogram. Tyrer-Cuzick lifetime risk of 24.6%. Current reported family history of breast cancer: mother. The patient reports testing negative for BRCA gene mutation. PRIOR EXAMS Outside films Breast MRI: 01/14/2022 Mammograms 09/01/2021, 07/07/2020, 11/14/2018, and 11/07/2017. MAMMOGRAPHY TECHNIQUE: 2D and 3D (tomosynthesis) digital mammographic views obtained, with additional images as needed for full coverage. Current study was also evaluated with a Computer Aided Detection (CAD) system. DENSITY D. The breasts are extremely dense, which lowers the sensitivity of mammography. MAMMOGRAPHY FINDINGS Bilateral: No suspicious mass, asymmetry, microcalcification, or other abnormality seen. IMPRESSION: * No evidence of malignancy. RECOMMENDATIONS Bilateral * According to the Tyrer-Cuzick Risk Assessment Model, based on the information provided your patient has a greater than 20% lifetime risk for developing breast cancer. Consider supplemental screening with breast MRI and participation in a high risk screening program. * Annual screening mammography. OVERALL ASSESSMENT CATEGORY BI-RADS-1: Negative. The [employer] recommends annual screening mammography beginning at age 40 for women with average risk of breast cancer. ELECTRONICALLY SIGNED: Margarito Zapata M.D. on 08/23/2024 at 05:38:59 PM PT Interpreting Station ID: [id number]
== END ==
PROVIDERS: Family Provider Naturopath; PCP Naturopath; Referring Provider Naturopath; Visit Provider Naturopath
DX: R92.333 Mammographic heterogeneous density, bilateral breasts; Z12.39 Encounter for other screening for malignant neoplasm of breast
CPT/HCPCS: 77063; 77067